=== PATIENT | female | born 1980 | race American Indian/Alaskan Native ===

== ENCOUNTER 2016-12-04 11:38 | Emergency (ER) | payer MEDICAID ==
[2016-12-04 11:59] VITALS: BP 121/71; PULSE 97; RESP 16; TEMP 97.9; O2SAT 96
--- NOTE | 2016-12-04 12:56 | C.PDOC ---
History Of Present Illness 36 yr old female presents to the ER with complaints of facial swelling for the past 2 weeks, states the swelling has been constant. Patient denies use of new products or any new foods. Patient also reports of a cough for the past 1 week, associated with mild sore throat and runny nose. Patient states the cough now causes pain to the left upper back. Also reports of heavy menstrual bleeding for the past 1 year and states her period last 3 weeks. Patient reports she feels weak and tired. Patient denies travel, fever, chills, chest pain, SOB, nausea, vomiting, diarrhea, dysuria, incontinence or numbness. Time Seen by Provider: 12/04/16 12:04 Chief Complaint (Nursing): Abnormal Skin Integrity History Per: Patient History/Exam Limitations: no limitations Onset/Duration Of Symptoms: Days Current Symptoms Are (Timing): Still Present Pain Scale Rating Of: 2 Past Medical History Reviewed: Historical Data, Nursing Documentation, Vital Signs Vital Signs: Last Vital Signs Temp 97.9 F 12/04/16 11:57 Pulse 97 H 12/04/16 11:57 Resp 16 12/04/16 11:57 BP 121/71 12/04/16 11:57 Pulse Ox 96 12/04/16 14:01 Family History: States: No Known Family Hx - Social History Hx Alcohol Use: No Hx Substance Use: No - Immunization History Hx Tetanus Toxoid Vaccination: No Hx Influenza Vaccination: No Hx Pneumococcal Vaccination: No Review Of Systems Except As Marked, All Systems Reviewed And Found Negative. Constitutional: Positive for: Other ((+) Facial swelling ). Negative for: Fever , Chills ENT: Positive for: Throat Pain (Sore throat ) Cardiovascular: Negative for: Chest Pain Respiratory: Positive for: Cough. Negative for: Shortness of Breath Gastrointestinal: Negative for: Nausea, Vomiting, Diarrhea Genitourinary: Positive for: Other (mentrual bleeding). Negative for: Dysuria, Incontinence Neurological: Negative for: Weakness, Numbness Physical Exam - Physical Exam Appears: Non-toxic, No Acute Distress, Other (Face - Mild swelling to the cheeks and bilateral eyelids. ) Skin: Warm, Dry, Pale, No Rash Head: Atraumatic, Normacephalic Eye(s): bilateral: Normal Inspection, PERRL, EOMI Ear(s): Bilateral: Normal Oral Mucosa: Moist Throat: Normal, No Erythema, No Exudate Neck: Normal, Normal ROM, Supple Lymphatic: Normal Exam, No Adenopathy Chest: Symmetrical, No Tenderness Cardiovascular: Rhythm Regular, No Friction Rub, No Murmur Respiratory: Normal Breath Sounds, No Rales, No Rhonchi, No Stridor, No Wheezing Gastrointestinal/Abdominal: Normal Exam, Soft, No Tenderness, No Guarding, No Rebound Back: Other ((+) Tenderness to the upper para thoracic region ) Extremity: Normal ROM, No Tenderness, No Swelling Pulses: Left Radial: Normal, Right Radial: Normal, Left Dorsalis Pedis: Normal, Right Dorsalis Pedis: Normal Neurological/Psych: Oriented x3, Normal Speech, Normal Motor, Normal Sensation Gait: Steady ED Course And Treatment - Laboratory Results Result Diagrams: 12/04/16 13:01 12/04/16 13:01 O2 Sat by Pulse Oximetry: 96 (on RA) Pulse Ox Interpretation: Normal - Radiology CXR: Interpreted by Me CXR Interpretation: Yes: No Acute Disease. No: Infiltrates Against Medical Advice - AMA Patient Left Against Medical Advice: The patient declines admission to the hospital and wishes to leave the Emergency Department. This action is against my medical advice. This decision was made with informed refusal. The patient was told that admission to the hospital is necessary. Explanation of the reasons why were discussed. The risks of leaving were explained to the patient and include, but are not limited to, worsening of known or currently unknown conditions, permanent disability and from undiagnosed or untreated conditions. The patient has the capacity to make this informed decision and understands my explanation of the current medical problem and risks of leaving. The patient voluntarily accepts these risks and signed an AMA form documenting our conversation. The patient was given the opportunity to ask questions and reconsider. The patient was encouraged to return to the Emergency Department at any time for further care. Medical Decision Making Medical Decision Making: PLAN: * CXR * HCG * Urinalysis * CBC * Benadryl PO * Pepcid PO * Prednisone PO Results were discussed with the patient about being severely anemic and hypokalemia. Patient refuses admission as she has no one to watch her children will return if symptoms are worsened. AMA obtained. The patient was instructed to follow up with the OBGYN for frequent vaginal bleeding. Patient states she has no active bleeding and will follow up. Disposition Counseled Patient/Family Regarding: Studies Performed, Smoking Cessation (For 7 minutes) - Disposition Referrals: [facility] [Outside] Shashi Bee MD [Medical Doctor] - Disposition: AGAINST MEDICAL ADVICE Disposition Time: 13:53 Condition: GOOD Additional Instructions: Follow up with the medical doctor within 1-2 days without fail, Return if worsened, Prescriptions: DiphenhydrAMINE [Benadryl] 25 mg PO Q4H PRN #30 cap PRN Reason: Itching / Pruritus Ferrous Sulfate [Ferosul] 325 mg PO BID #60 tablet Potassium Chloride [K-Tab ER] 20 meq PO DAILY #30 tablet.er Naproxen [Naprosyn] 500 mg PO BID #20 tab Promethazine/Codeine [Codeine/Promethazine 10 MG/5 Ml-6.25 MG/5 Ml] 5 ml PO Q8 PRN #75 ml PRN Reason: Cough Ascorbic Acid [Vitamin C] 500 mg PO BID #60 tab predniSONE [Prednisone] 20 mg PO BID #10 tab Instructions: Iron Deficiency Anemia (ED), Acute Bronchitis (ED) - Clinical Impression Clinical Impression: Anemia, Bronchitis - PA / LCPC / Resident Statement MD/DO has reviewed & agrees with the documentation as recorded. - Scribe Statement The provider has reviewed the documentation as recorded by the Scribflorence Tinajero All medical record entries made by the Scribe were at my direction and personally dictated by me. I have reviewed the chart and agree that the record accurately reflects my personal performance of the history, physical exam, medical decision making, and the department course for this patient. I have also personally directed, reviewed, and agree with the discharge instructions and disposition.
[2016-12-04 13:06] LABS: BASO % 0.6 % (0.0-2.0); EOS # 0.1 K/uL (0.0-0.7); EOS % 1.1 % (0.0-4.0); HEMATOCRIT 23.6 % (34.0-47.0); LYMPH # 1.9 K/uL (1.0-4.3); LYMPH % 28.3 % (20.0-40.0); MEAN CORPUSCULAR HEMOGLOBIN 22.8 pg (27.0-31.0); MEAN CORPUSCULAR HGB CONC 30.8 g/dL (33.0-37.0); MEAN PLATELET VOLUME 6.5 fL (7.2-11.7); MONO # 0.9 K/uL (0.0-0.8); MONO % 13.9 % (0.0-10.0); NRBC % 0.1 % (0.0-2.0); WHITE BLOOD COUNT 6.8 K/uL (4.8-10.8)
[2016-12-04 13:11] LABS: RBC URINE < 1 /hpf (0-3); URINE BACTERIA RARE (<OCC); URINE BILIRUBIN NEGATIVE (NEGATIVE); URINE BLOOD 1+ (NEGATIVE); URINE COLOR Yellow (YELLOW); URINE GLUCOSE (UA) NORMAL (Normal); URINE KETONE NEGATIVE (NEGATIVE); URINE LEUKOCYTE ESTERASE TRACE Leu/uL (Negative); URINE PROTEIN NEGATIVE (NEGATIVE); WBC URINE 4 /hpf (0-5)
[2016-12-04 13:13] LABS: CHLORIDE 100 mmol/L (98-107)
[2016-12-04 13:14] LABS: POTASSIUM 2.9 mmol/L (3.6-5.2); SODIUM 144 mmol/L (132-148)
[2016-12-04 13:16] LABS: CARBON DIOXIDE 30 mmol/L (22-30); GFR AFRICAN-AMERICAN > 60
[2016-12-04 13:17] LABS: BLOOD UREA NITROGEN 4 mg/dL (7-17); CALCIUM 7.9 mg/dl (8.6-10.4); GLUCOSE,RANDOM 85 mg/dL (65-105)
[2016-12-04] MEDS ORDERED: Potassium Chloride 20 mEq/15 ml LIQ UD PO STA ×2 (13:29→13:33)
[2016-12-04] MEDS ORDERED: Potassium Chloride 20 mEq ER Tab PO ONE (13:36)
--- NOTE | 2016-12-04 14:42 | RAD ---
PROCEDURE: CHEST RADIOGRAPH, 1 VIEW HISTORY: cough, SOB COMPARISON: None available. FINDINGS: LUNGS: No focal infiltrate or effusion. Small nodular density at the lateral aspect of the left upper to mid lung zone. Six month interval followup study may be helpful if clinically indicated. PLEURA: No pneumothorax or pleural fluid seen. CARDIOVASCULAR: Normal. OSSEOUS STRUCTURES: No significant abnormalities. VISUALIZED UPPER ABDOMEN: Normal. OTHER FINDINGS: None. IMPRESSION: No focal infiltrate or effusion. Small nodular density at the lateral aspect of the left upper to mid lung zone. Six month interval followup study may be helpful if clinically indicated.
== END 2016-12-04 14:12 | disposition left against medical advice (07) ==
LOC: C.ER 11:38
DX: J40 Bronchitis, not specified as acute or chronic (principal); D64.9 Anemia, unspecified

== ENCOUNTER 2017-04-09 16:31 | Emergency (ER) | payer MEDICAID ==
[2017-04-09 16:54] VITALS: RESP 18; BMI 27.6
--- NOTE | 2017-04-09 17:52 | C.PDOC ---
History Of Present Illness 36 y/o female presents to ED for evaluation of abscess to right buttock for the past week. Patient states that the area drained 3 days ago. Pt was seen by MANAGER ED today who instructed her to come to ED for further evaluation. Otherwise, denies any fever, abdominal pain, pain/blood with BM or any other associated symptoms at this time. No history of diabetes. Time Seen by Provider: 04/09/17 17:20 Chief Complaint (Nursing): Abnormal Skin Integrity History Per: Patient History/Exam Limitations: no limitations Onset/Duration Of Symptoms: Days (1 week) Current Symptoms Are (Timing): Still Present Location Of Injury: Right: Buttock Quality Of Symptoms: denies: Itching, Swollen, Draining Recent travel outside of the [place]: No Additional History Per: Patient Past Medical History Reviewed: Historical Data, Nursing Documentation, Vital Signs Vital Signs: Last Vital Signs Temp 98.8 F 04/09/17 18:38 Pulse 82 04/09/17 18:38 Resp 18 04/09/17 18:38 BP 117/77 04/09/17 18:38 Pulse Ox 97 04/09/17 21:57 Family History: States: Unknown Family Hx - Social History Hx Alcohol Use: No Hx Substance Use: No - Immunization History Hx Tetanus Toxoid Vaccination: No Hx Influenza Vaccination: No Hx Pneumococcal Vaccination: No Review Of Systems Except As Marked, All Systems Reviewed And Found Negative. Musculoskeletal: Negative for: Leg Pain Skin: Positive for: Other (abscess to right buttock) Neurological: Negative for: Weakness, Numbness Physical Exam - Physical Exam Appears: Non-toxic, No Acute Distress Skin: Warm, Dry, Other (1.5cm diameter and 0.5cm in depth open wound to right buttock, with mild discharge, no surrounding erythema) Head: Atraumatic, Normacephalic Eye(s): bilateral: Normal Inspection, EOMI Nose: Normal Oral Mucosa: Moist Chest: Symmetrical Respiratory: No Accessory Muscle Use Gastrointestinal/Abdominal: Soft, No Tenderness Extremity: Normal ROM, No Tenderness, No Deformity, No Swelling Neurological/Psych: Oriented x3, Normal Speech ED Course And Treatment O2 Sat by Pulse Oximetry: 97 (RA) Pulse Ox Interpretation: Normal Progress Note: Patient was given Tetanus vaccination, Percocet, and Bactrim. The abscess was irrigated copiously, packed, dressing was applied. The patient tolerated the procedure well, and there were no complications. Pt instructed to return to ED in 2-3 days for wound check. Case discussed with Dr Russ , agreed upon plan and treatment. - Incision & Drainage Of Abscess Anesthesia: Lidocaine 1% Prep Used: Sterile Water, Betadine Procedure: Drained Pus, Irrigated Cavity W/Saline, Packed W/Gauze Disposition - Disposition Disposition: HOME/ ROUTINE Disposition Time: 17:49 Condition: STABLE Additional Instructions: Return in 2-3 days for wound check or sooner if symptoms persist or worsen. 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 - Scribe Statement The provider has reviewed the documentation as recorded by the Belaibflorence Lemus All medical record entries made by the Desmond were at my direction and personally dictated by me. I have reviewed the chart and agree that the record accurately reflects my personal performance of the history, physical exam, medical decision making, and the department course for this patient. I have also personally directed, reviewed, and agree with the discharge instructions and disposition.
[2017-04-09] MEDS ORDERED: Tmp-Smz 800 mg-160 mg DS Tab PO STA (17:58)
[2017-04-09] MEDS ORDERED: Oxycodone/Acetaminophen 5/325 mg Tab PO STA (17:58)
[2017-04-09] MEDS ORDERED: Oxycodone/Acetaminophen 5/325 mg Tab ONE (18:06)
[2017-04-09] MEDS ORDERED: Tmp-Smz 800 mg-160 mg DS Tab ONE (18:09)
[2017-04-09 18:39] VITALS: BP 117/77; PULSE 82; TEMP 98.8
[2017-04-09 21:49] VITALS: O2SAT 97
== END 2017-04-09 18:44 | disposition home or self-care (01) ==
LOC: C.ER 16:31
DX: S31.819D Unspecified open wound of right buttock, subsequent encounter (principal); L03.317 Cellulitis of buttock; X58.XXXD Exposure to other specified factors, subsequent encounter; L02.31 Cutaneous abscess of buttock

== ENCOUNTER 2017-08-07 18:58 | Inpatient (IN) | payer MEDICAID ==
[2017-08-07] MEDS ORDERED: Albuterol 0.083% Inhal Sol (2.5 mg/3 mL) UD IH STA (20:16)
--- NOTE | 2017-08-07 20:21 | C.PDOC ---
History Of Present Illness 36 year old female presents to the ER with a complaint ofa productive cough and chest pain intermittently for the past 3 weeks. Patient states she has been using her boyfriend's nebulizer with improvement. Denies fever. Chief Complaint (Nursing): Chest Pain History Per: Patient History/Exam Limitations: no limitations Onset/Duration Of Symptoms: Days Current Symptoms Are (Timing): Still Present Modifying Factors: None Exacerbating Factors: None Alleviating Factors: Other (Nebulizer) Recent travel outside of the [place]: No Past Medical History Reviewed: Historical Data, Nursing Documentation, Vital Signs Vital Signs: Last Vital Signs Temp 98.1 F 08/07/17 22:21 Pulse 80 08/07/17 22:21 Resp 18 08/07/17 22:21 BP 105/68 08/07/17 22:21 Pulse Ox 96 08/08/17 01:28 - Medical History PMH: No Chronic Diseases Surgical History: No Surg Hx Family History: States: Unknown Family Hx - Social History Hx Alcohol Use: Yes Hx Substance Use: Yes (DAILY) - Immunization History Hx Tetanus Toxoid Vaccination: No Hx Influenza Vaccination: No Hx Pneumococcal Vaccination: No Review Of Systems Constitutional: Negative for: Fever, Chills Cardiovascular: Positive for: Chest Pain Respiratory: Positive for: Cough Gastrointestinal: Negative for: Nausea, Vomiting Physical Exam - Physical Exam Appears: Non-toxic, No Acute Distress Skin: Normal Color, Warm, Dry Head: Atraumatic, Normacephalic Eye(s): bilateral: Normal Inspection Oral Mucosa: Moist Chest: Symmetrical Cardiovascular: Rhythm Regular Respiratory: No Accessory Muscle Use, No Rales, Rhonchi (Occasional), Wheezing ( Occasional) Gastrointestinal/Abdominal: Soft, No Tenderness Extremity: No Pedal Edema Neurological/Psych: Oriented x3, Normal Speech, Other (No focal deficits) ED Course And Treatment - Laboratory Results Result Diagrams: 08/07/17 20:34 08/07/17 20:34 ECG: Interpreted By Me, Viewed By Me ECG Rhythm: Sinus Rhythm, ST/T Changes ECG Interpretation: No Acute Changes, Abnormal Interpretation Of ECG: NSR, T wave abnormality, abnormal tracings Rate From EC O2 Sat by Pulse Oximetry: 96 (Room air) Pulse Ox Interpretation: Normal Progress Note: EKG, blood work, CXR, and urinalysis ordered. Nebulizer treatment administered. Disposition Discussed With : Aga Lemus Doctor Will See Patient In The: Hospital Counseled Patient/Family Regarding: Diagnosis - Disposition Disposition: HOSPITALIZED Disposition Time: 01:29 Condition: STABLE Forms: [facility] (Uzbek) - POA Present On Arrival: None - Clinical Impression Clinical Impression: Chest pain, Pericardial effusion with cardiac tamponade - Scribe Statement The provider has reviewed the documentation as recorded by the Scribe Phill Matos All medical record entries made by the Belaibflorence were at my direction and personally dictated by me. I have reviewed the chart and agree that the record accurately reflects my personal performance of the history, physical exam, medical decision making, and the department course for this patient. I have also personally directed, reviewed, and agree with the discharge instructions and disposition.
[2017-08-07] MEDS ORDERED: Albuterol 0.042% Inhal Sol (1.25 mg/3 mL) UD ONE (20:22)
[2017-08-07 20:42] LABS: BASO # 0.1 K/uL (0.0-0.2); BASO % 1.3 % (0.0-2.0); EOS # 0.2 K/uL (0.0-0.7); EOS % 2.4 % (0.0-4.0); HEMATOCRIT 34.4 % (34.0-47.0); LYMPH # 1.9 K/uL (1.0-4.3); LYMPH % 28.7 % (20.0-40.0); MEAN CELL VOLUME 81.8 fL (81.0-99.0); MEAN CORPUSCULAR HEMOGLOBIN 25.5 pg (27.0-31.0); MEAN CORPUSCULAR HGB CONC 31.2 g/dL (33.0-37.0); MEAN PLATELET VOLUME 7.2 fL (7.2-11.7); MONO # 0.7 K/uL (0.0-0.8); MONO % 10.4 % (0.0-10.0); NRBC % 0.1 % (0.0-2.0); RED CELL DISTRIBUTION WIDTH 19.4 % (11.5-14.5); WHITE BLOOD COUNT 6.6 K/uL (4.8-10.8)
[2017-08-07 21:09] LABS: ALB/GLOB RATIO 0.8 (1.0-2.1); ALKALINE PHOSPHATASE 125 U/L (38-126); ALT/SGPT 60 U/L (9-52); AST/SGOT 79 U/L (14-36); BILIRUBIN,TOTAL 0.4 mg/dL (0.2-1.3); BLOOD UREA NITROGEN 3 mg/dL (7-17); CALCIUM 7.8 mg/dl (8.6-10.4); CARBON DIOXIDE 25 mmol/L (22-30); CHLORIDE 103 mmol/L (98-107); GFR AFRICAN-AMERICAN > 60; GLUCOSE,RANDOM 76 mg/dL (65-105); SODIUM 138 mmol/L (132-148)
[2017-08-08] MEDS ORDERED: Iodixanol 320 MG/ML 100 ML BOTTLE IV ONE (00:17)
[2017-08-08] MEDS ORDERED: Potassium Chloride 20 mEq/15 ml LIQ UD PO STA (00:53)
[2017-08-08] MEDS ORDERED: Potassium Chloride 20 mEq ER Tab PO ONE (00:56)
--- NOTE | 2017-08-08 01:04 | CT ---
EXAM: CT Angiography Chest With Intravenous Contrast CLINICAL HISTORY: 36 years old, female; Pain; Chest pain; Additional info: Chest pain, elevated d-dimer TECHNIQUE: Axial computed tomographic angiography images of the chest with intravenous contrast using pulmonary embolism protocol. All CT scans at this facility use one or more dose reduction techniques, viz.: automated exposure control; ma/kV adjustment per patient size (including targeted exams where dose is matched to indication; i.e. head); or iterative reconstruction technique. MIP reconstructed images were created and reviewed. Coronal and sagittal reformatted images were created and reviewed. CONTRAST: 100 mL of [id number] administered intravenously. COMPARISON: No relevant prior studies available. FINDINGS: Pulmonary arteries: No pulmonary embolism. Aorta: No thoracic aortic aneurysm. Lungs: No mass. No consolidation. Pleural spaces: No significant effusion. No pneumothorax. Heart: No cardiomegaly. Significant pericardial effusion. No evidence of right heart dysfunction. Bones: No acute fracture. Lymph nodes: No pathologically enlarged lymph nodes. IMPRESSION: No pulmonary embolism. Significant pericardial effusion. The lungs are clear.
--- NOTE | 2017-08-08 08:34 | RAD ---
HISTORY: /chest pain / cough/ wheezes COMPARISON: No prior. TECHNIQUE: Chest PA and lateral FINDINGS: LUNGS: No active pulmonary disease. PLEURA: No significant pleural effusion identified. No pneumothorax apparent. CARDIOVASCULAR: Stable cardiomegaly. No pulmonary vascular derangement appreciated. OSSEOUS STRUCTURES: No significant abnormalities. VISUALIZED UPPER ABDOMEN: Normal. OTHER FINDINGS: None. IMPRESSION: Cardiomegaly. No interval acute pulmonary disease appreciable.
[2017-08-08] MEDS: Enoxaparin 30 mg Syringe SC SCH (09:17)
[2017-08-08] MEDS: cefTRIAXone IV 1 gm in Dextros 50 ML IVPB SCH (09:17)
--- NOTE | 2017-08-08 19:04 | CP.PCM.HP ---
History of Present Illness - History of Present Illness History of Present Illness: 36-year-old female with no past history presents to the ER for evaluation of chest pain & cough. C/O - chest pain for the last 15 days. Insidious in onset, progressive, substernal, pinpricking sensation, intensity of 5/10, near continuous throughout the day, not associated with movement. C/O - cough for the last 15 days. Productive, of whitish expectoration, associated and aggravates the chest pain. No C/O - fever, chills, palpitation, hemoptysis. Present on Admission - Present on Admission Any Indicators Present on Admission: No Past Patient History - Past Medical History & Family History Past Medical History?: Yes - Past Social History Smoking Status: Current Some Days Smoker - CARDIAC Hx Cardiac Disorders: No - PULMONARY Other/Comment: PH NODES IN MY LUNGS - NEUROLOGICAL Hx Neurological Disorder: No - HEENT Hx HEENT Problems: No - RENAL Hx Chronic Kidney Disease: No - ENDOCRINE/METABOLIC Hx Endocrine Disorders: No - HEMATOLOGICAL/ONCOLOGICAL Hx Blood Disorders: No - INTEGUMENTARY Other/Comment: inner thighs it. chiness and discoloration - MUSCULOSKELETAL/RHEUMATOLOGICAL Hx Musculoskeletal Disorders: No Hx Falls: No - GASTROINTESTINAL Hx Gastrointestinal Disorders: No - GENITOURINARY/GYNECOLOGICAL Hx Genitourinary Disorders: No - PSYCHIATRIC Hx Substance Use: Yes (1 bag of marijuana /day) - SURGICAL HISTORY Hx Surgeries: Yes Hx Section: Yes (2014 1x) - ANESTHESIA Hx Anesthesia: Yes Hx Anesthesia Reactions: No Hx Malignant Hyperthermia: No Has any member of the family had a problem w/ anesthesia?: No Meds Allergies/Adverse Reactions: Allergies Allergy/AdvReac Type Severity Reaction Status Date / Time No Known Allergies Allergy Verified 08/07/17 19:14 Physical Exam - Constitutional Appears: Well - Head Exam Head Exam: ATRAUMATIC, NORMAL INSPECTION, NORMOCEPHALIC - Eye Exam Eye Exam: EOMI, Normal appearance, PERRL Pupil Exam: NORMAL ACCOMODATION, PERRL - ENT Exam ENT Exam: Mucous Membranes Moist, Normal Exam - Neck Exam Neck exam: Positive for: Normal Inspection - Respiratory Exam Respiratory Exam: Decreased Breath Sounds - Cardiovascular Exam Cardiovascular Exam: REGULAR RHYTHM, +S1, +S2 - GI/Abdominal Exam GI & Abdominal Exam: Diminished Bowel Sounds, Soft - Rectal Exam Rectal Exam: Deferred Results - Vital Signs Recent Vital Signs: Last Vital Signs Temp 97.8 F 08/08/17 15:25 Pulse 78 08/08/17 15:25 Resp 20 08/08/17 15:25 BP 130/87 08/08/17 15:25 Pulse Ox 98 08/08/17 15:25 - Labs Result Diagrams: 08/12/17 09:28 08/12/17 09:28 Labs: Laboratory Results - last 24 hr 08/07/17 08/07/17 08/07/17 20:34 20:34 20:34 WBC 6.6 RBC 4.21 Hgb 10.7 L D Hct 34.4 MCV 81.8 D MCH 25.5 L MCHC 31.2 L RDW 19.4 H Plt Count 303 MPV 7.2 Neut % (Auto) 57.2 Lymph % (Auto) 28.7 Harris % (Auto) 10.4 H Eos % (Auto) 2.4 Baso % (Auto) 1.3 Neut # 3.8 Lymph # 1.9 Harris # 0.7 Eos # 0.2 Baso # 0.1 ESR D-Dimer, Quantitative 644 H Sodium 138 Potassium 3.0 L Chloride 103 Carbon Dioxide 25 Anion Gap 13 BUN 3 L Creatinine 0.5 L Est GFR ( Amer) > 60 Est GFR (Non-Af Amer) > 60 Random Glucose 76 Calcium 7.8 L Total Bilirubin 0.4 AST 79 H ALT 60 H Alkaline Phosphatase 125 Troponin I < 0.0120 Total Protein 8.0 Albumin 3.6 Globulin 4.4 H Albumin/Globulin Ratio 0.8 L TSH 3rd Generation Urine HCG, Qual 08/07/17 08/08/17 08/08/17 20:55 02:31 02:31 WBC RBC Hgb Hct MCV MCH MCHC RDW Plt Count MPV Neut % (Auto) Lymph % (Auto) Harris % (Auto) Eos % (Auto) Baso % (Auto) Neut # Lymph # Harris # Eos # Baso # ESR 7 D-Dimer, Quantitative Sodium Potassium Chloride Carbon Dioxide Anion Gap BUN Creatinine Est GFR ( Amer) Est GFR (Non-Af Amer) Random Glucose Calcium Total Bilirubin AST ALT Alkaline Phosphatase Troponin I Total Protein Albumin Globulin Albumin/Globulin Ratio TSH 3rd Generation 2.10 Urine HCG, Qual Negative
--- NOTE | 2017-08-08 20:33 | CP.PCM.CON ---
History of Present Illness - History of Present Illness History of Present Illness: 36 F with no significant PMH admitted for cough, and chest pains Chest pain not related to exertion CT chest revealed large pericardial effusion ECHO: Large pericardial effusion No RV collapse No hemodynamic compromise Needs pericardial window and fluid analysis Thoracic surgery consult requested Physical Examination - Constitutional Appears: No Acute Distress - Head Exam Head Exam: ATRAUMATIC, NORMOCEPHALIC - Eye Exam Eye Exam: EOMI, Normal appearance - ENT Exam ENT Exam: Mucous Membranes Moist - Respiratory Exam Respiratory Exam: NORMAL BREATHING PATTERN - Cardiovascular Exam Cardiovascular Exam: REGULAR RHYTHM, Rubs - GI/Abdominal Exam GI & Abdominal Exam: Soft. absent: Tenderness - Neurological Exam Neurological Exam: Alert, Awake, Oriented x3 - Psychiatric Exam Psychiatric exam: Normal Affect, Normal Mood - Skin Skin Exam: Dry, Intact, Normal Color, Warm Past Patient History - Past Medical History & Family History Past Medical History?: Yes - Past Social History Smoking Status: Current Some Days Smoker - CARDIAC Hx Cardiac Disorders: No - PULMONARY Other/Comment: PH NODES IN MY LUNGS - NEUROLOGICAL Hx Neurological Disorder: No - HEENT Hx HEENT Problems: No - RENAL Hx Chronic Kidney Disease: No - ENDOCRINE/METABOLIC Hx Endocrine Disorders: No - HEMATOLOGICAL/ONCOLOGICAL Hx Blood Disorders: No - INTEGUMENTARY Other/Comment: inner thighs it. chiness and discoloration - MUSCULOSKELETAL/RHEUMATOLOGICAL Hx Musculoskeletal Disorders: No Hx Falls: No - GASTROINTESTINAL Hx Gastrointestinal Disorders: No - GENITOURINARY/GYNECOLOGICAL Hx Genitourinary Disorders: No - PSYCHIATRIC Hx Substance Use: Yes (1 bag of marijuana /day) - SURGICAL HISTORY Hx Surgeries: Yes Hx Section: Yes (2014 1x) - ANESTHESIA Hx Anesthesia: Yes Hx Anesthesia Reactions: No Hx Malignant Hyperthermia: No Has any member of the family had a problem w/ anesthesia?: No Meds Allergies/Adverse Reactions: Allergies Allergy/AdvReac Type Severity Reaction Status Date / Time No Known Allergies Allergy Verified 08/07/17 19:14 - Medications Medications: Current Medications Diphenhydramine HCl (Benadryl) 25 mg PO Q8 PRN PRN Reason: Rash Enoxaparin Sodium (Lovenox) 30 mg SC DAILY [facility] Last Admin: 08/08/17 09:17 Dose: 30 mg Ceftriaxone Sodium (Rocephin Iv 1 Gm Duplex) 50 mls @ 100 mls/hr IVPB DAILY [facility] Last Admin: 08/08/17 09:17 Dose: 100 mls/hr Potassium Chloride (Potassium Chloride 20 Meq/100 Ml) 20 meq in 100 mls @ 50 mls/hr IVPB Q2 [facility] Stop: 08/09/17 03:59 Indomethacin (Indocin) 25 mg PO TID [facility] Last Admin: 08/08/17 17:42 Dose: 25 mg Results - Vital Signs Recent Vital Signs: Last Vital Signs Temp 97.8 F 08/08/17 15:25 Pulse 73 08/08/17 16:00 Resp 20 08/08/17 15:25 BP 130/87 08/08/17 15:25 Pulse Ox 98 08/08/17 15:25 - Labs Result Diagrams: 08/16/17 06:37 08/16/17 06:34 Labs: Laboratory Results - last 24 hr 08/07/17 08/07/17 08/07/17 20:34 20:34 20:34 WBC 6.6 RBC 4.21 Hgb 10.7 L D Hct 34.4 MCV 81.8 D MCH 25.5 L MCHC 31.2 L RDW 19.4 H Plt Count 303 MPV 7.2 Neut % (Auto) 57.2 Lymph % (Auto) 28.7 [place] % (Auto) 10.4 H Eos % (Auto) 2.4 Baso % (Auto) 1.3 Neut # 3.8 Lymph # 1.9 [place] # 0.7 Eos # 0.2 Baso # 0.1 ESR D-Dimer, Quantitative 644 H Sodium 138 Potassium 3.0 L Chloride 103 Carbon Dioxide 25 Anion Gap 13 BUN 3 L Creatinine 0.5 L Est GFR ( Amer) > 60 Est GFR (Non-Af Amer) > 60 Random Glucose 76 Calcium 7.8 L Total Bilirubin 0.4 AST 79 H ALT 60 H Alkaline Phosphatase 125 Troponin I < 0.0120 Total Protein 8.0 Albumin 3.6 Globulin 4.4 H Albumin/Globulin Ratio 0.8 L TSH 3rd Generation Urine HCG, Qual 08/07/17 08/08/17 08/08/17 20:55 02:31 02:31 WBC RBC Hgb Hct MCV MCH MCHC RDW Plt Count MPV Neut % (Auto) Lymph % (Auto) [place] % (Auto) Eos % (Auto) Baso % (Auto) Neut # Lymph # [place] # Eos # Baso # ESR 7 D-Dimer, Quantitative Sodium Potassium Chloride Carbon Dioxide Anion Gap BUN Creatinine Est GFR ( Amer) Est GFR (Non-Af Amer) Random Glucose Calcium Total Bilirubin AST ALT Alkaline Phosphatase Troponin I Total Protein Albumin Globulin Albumin/Globulin Ratio TSH 3rd Generation 2.10 Urine HCG, Qual Negative Assessment & Plan - Assessment and Plan (Free Text) Assessment: 36 F with no significant PMH admitted for cough, and chest pains Chest pain not related to exertion CT chest revealed large pericardial effusion ECHO: Large pericardial effusion No RV collapse No hemodynamic compromise Needs pericardial window and fluid analysis Thoracic surgery consult requested
--- NOTE | 2017-08-08 21:20 | CP.PCM.CON ---
History of Present Illness - History of Present Illness History of Present Illness: Thoracic Surgery- Dr. Bowers 36F no relevant pmhx presents to [facility] w/ cough, chest pain described as achy, and shortness of breath when walking up a hill that started 3 weeks ago. Pain is worse when laying flat or prone, slightly better when taking her boyfriends nebulizer. Times at night, pain will awaken from sleep. Pt never had pain like this in the past. Currently denies: fevers, chills, nausea, vomiting, diarrhea, numbness/tingling in extremities. PMH: denies PSH: ALL: NKDA SocialHx: 10 cigarettes/day, occasional marijuana use. denies etoh or other recreational drug use Review of Systems - Review of Systems All systems: reviewed and no additional remarkable complaints except - Constitutional Constitutional: As Per HPI Past Patient History - Past Medical History & Family History Past Medical History?: Yes - Past Social History Smoking Status: Current Some Days Smoker - CARDIAC Hx Cardiac Disorders: No - PULMONARY Other/Comment: PH NODES IN MY LUNGS - NEUROLOGICAL Hx Neurological Disorder: No - HEENT Hx HEENT Problems: No - RENAL Hx Chronic Kidney Disease: No - ENDOCRINE/METABOLIC Hx Endocrine Disorders: No - HEMATOLOGICAL/ONCOLOGICAL Hx Blood Disorders: No - INTEGUMENTARY Other/Comment: inner thighs it. chiness and discoloration - MUSCULOSKELETAL/RHEUMATOLOGICAL Hx Musculoskeletal Disorders: No Hx Falls: No - GASTROINTESTINAL Hx Gastrointestinal Disorders: No - GENITOURINARY/GYNECOLOGICAL Hx Genitourinary Disorders: No - PSYCHIATRIC Hx Substance Use: Yes (1 bag of marijuana /day) - SURGICAL HISTORY Hx Surgeries: Yes Hx Section: Yes (2014 1x) - ANESTHESIA Hx Anesthesia: Yes Hx Anesthesia Reactions: No Hx Malignant Hyperthermia: No Has any member of the family had a problem w/ anesthesia?: No Meds Allergies/Adverse Reactions: Allergies Allergy/AdvReac Type Severity Reaction Status Date / Time No Known Allergies Allergy Verified 08/07/17 19:14 - Medications Medications: Current Medications Diphenhydramine HCl (Benadryl) 25 mg PO Q8 PRN PRN Reason: Rash Enoxaparin Sodium (Lovenox) 30 mg SC DAILY [facility] Last Admin: 08/08/17 09:17 Dose: 30 mg Ceftriaxone Sodium (Rocephin Iv 1 Gm Duplex) 50 mls @ 100 mls/hr IVPB DAILY [facility] Last Admin: 08/08/17 09:17 Dose: 100 mls/hr Potassium Chloride (Potassium Chloride 20 Meq/100 Ml) 20 meq in 100 mls @ 50 mls/hr IVPB Q2 RYAN Stop: 08/09/17 03:59 Indomethacin (Indocin) 25 mg PO TID [facility] Last Admin: 08/08/17 17:42 Dose: 25 mg Physical Exam - Constitutional Appears: Non-toxic, No Acute Distress - Head Exam Head Exam: ATRAUMATIC - Eye Exam Eye Exam: EOMI. absent: Scleral icterus - ENT Exam ENT Exam: Mucous Membranes Moist - Respiratory Exam Respiratory Exam: NORMAL BREATHING PATTERN. absent: Accessory Muscle Use, Respiratory Distress - Cardiovascular Exam Cardiovascular Exam: Rubs, +S1, +S2. absent: Tachycardia - GI/Abdominal Exam GI & Abdominal Exam: Soft. absent: Distended, Firm, Guarding, Rigid, Tenderness - Extremities Exam Extremities exam: Positive for: normal inspection. Negative for: calf tenderness - Back Exam Back exam: absent: CVA tenderness (L), CVA tenderness (R) - Neurological Exam Neurological exam: Alert, Oriented x3 - Psychiatric Exam Psychiatric exam: Normal Affect - Skin Skin Exam: Intact, Warm Results - Vital Signs Recent Vital Signs: Last Vital Signs Temp 97.8 F 08/08/17 15:25 Pulse 73 08/08/17 16:00 Resp 20 08/08/17 15:25 BP 130/87 08/08/17 15:25 Pulse Ox 98 08/08/17 15:25 - Labs Result Diagrams: 08/07/17 20:34 08/07/17 20:34 Labs: Laboratory Results - last 24 hr 08/07/17 08/07/17 08/08/17 20:34 20:55 02:31 ESR 7 Anion Gap 13 Troponin I < 0.0120 TSH 3rd Generation Urine HCG, Qual Negative 08/08/17 02:31 ESR Anion Gap Troponin I TSH 3rd Generation 2.10 Urine HCG, Qual Assessment & Plan - Assessment and Plan (Free Text) Assessment: 36F w/ pericardial effusion Plan: - plan for pericardial window - will re asses in AM - NPO @ MN - type and cross - IVF - breathing tx PRN - further recs per Dr. Bowers Surgical attending Sukhjinder Thomas PGY1
[2017-08-09] MEDS: Lactated Ringer's 1,000 ML IV SCH (06:09)
[2017-08-09 06:53] LABS: INR 1.1
--- NOTE | 2017-08-09 08:57 | CP.PCM.PN ---
Subjective - Date & Time of Evaluation Date of Evaluation: 08/09/17 Time of Evaluation: 11:39 - Subjective Subjective: Cardiothoracic surgery Note for Dr. Bowers Patient seen and examined at bedside. No acute event overnight. Patient states she has mild discomfort under ribs bilaterally. ECHO shows large pericardial effusion with normal EF. Patient will need drainage tomorrow. No other complaints at this time. Objective - Vital Signs/Intake and Output Vital Signs (last 24 hours): Temp Pulse Resp BP Pulse Ox 98.1 F 82 18 129/84 100 08/09/17 08:05 08/09/17 08:05 08/09/17 08:05 08/09/17 08:05 08/09/17 08:05 Intake and Output: 08/09/17 08/09/17 06:59 18:59 Intake Total 240 300 Balance 240 300 - Medications Medications: Current Medications Diphenhydramine HCl (Benadryl) 25 mg PO Q8 PRN PRN Reason: Rash Last Admin: 08/08/17 21:20 Dose: 25 mg Enoxaparin Sodium (Lovenox) 30 mg SC DAILY [facility] Last Admin: 08/08/17 09:17 Dose: 30 mg Ceftriaxone Sodium (Rocephin Iv 1 Gm Duplex) 50 mls @ 100 mls/hr IVPB DAILY [facility] Last Admin: 08/08/17 09:17 Dose: 100 mls/hr Lactated Ringer's (Lactated Ringer's) 1,000 mls @ 45 mls/hr IV .[id number] [facility] Last Admin: 08/09/17 06:09 Dose: 45 mls/hr Indomethacin (Indocin) 25 mg PO TID [facility] Last Admin: 08/08/17 17:42 Dose: 25 mg - Labs Labs: 08/07/17 20:34 08/07/17 20:34 PT 12.6 SECONDS (9.7-12.2) H 08/09/17 06:35 INR 1.1 08/09/17 06:35 APTT 35 SECONDS (21-34) H 08/09/17 06:35 - Constitutional Appears: No Acute Distress - Head Exam Head Exam: ATRAUMATIC, NORMOCEPHALIC - Eye Exam Eye Exam: EOMI, Normal appearance - ENT Exam ENT Exam: Mucous Membranes Moist - Respiratory Exam Respiratory Exam: NORMAL BREATHING PATTERN - Cardiovascular Exam Cardiovascular Exam: REGULAR RHYTHM, Rubs - GI/Abdominal Exam GI & Abdominal Exam: Soft. absent: Tenderness - Neurological Exam Neurological Exam: Alert, Awake, Oriented x3 - Psychiatric Exam Psychiatric exam: Normal Affect, Normal Mood - Skin Skin Exam: Dry, Intact, Normal Color, Warm Assessment and Plan - Assessment and Plan (Free Text) Plan: 36F w/ pericardial effusion - plan for pericardial window in OR tomorrow at 10 am - NPO past MN - type and cross 2 unit PRBC - Routine pre-op work up - further recs per Dr. Elissa Crespo PGY1
[2017-08-09] MEDS: Enoxaparin 30 mg Syringe SC SCH (10:00)
--- NOTE | 2017-08-09 10:01 | CARD ---
APPROVED REPORT EXAM: Two-dimensional and M-mode echocardiogram with Doppler and color Doppler. Other Information Quality : GoodRhythm : NSR INDICATION Pericardial Effusion Chest Pain 2D DIMENSIONS IVSd0.9 (0.7-1.1cm)LVDd3.8 (3.9-5.9cm) PWd0.9 (0.7-1.1cm)LVDs2.1 (2.5-4.0cm) FS (%) 45.2 %LVEF (%)77.3 (>50%) M-Mode DIMENSIONS RVDd2.21 (2.1-3.2cm)Left Atrium (MM)3.60 (2.5-4.0cm) IVSd0.85 (0.7-1.1cm)Aortic Root2.56 (2.2-3.7cm) LVDd4.39 (4.0-5.6cm)Aortic Cusp Exc.1.89 (1.5-2.0cm) PWd0.96 (0.7-1.1cm)FS (%) 49 % LVDs2.25 (2.0-3.8cm)LVEF (%)80 (>50%) Mitral Valve MV E Cqaoihzt03.8cm/sMV A Ykwevwmc16.8cm/sE/A ratio1.1 TDI E/Lateral E'0.0E/Medial E'0.0 Tricuspid Valve TR Peak [id number]/sTR Peak [id number] LEFT VENTRICLE The left ventricle is normal size. There is normal left ventricular wall thickness. The left ventricular function is normal. The left ventricular ejection fraction is within the normal range. There is normal LV segmental wall motion. Transmitral Doppler flow pattern is abnormal. RIGHT VENTRICLE The right ventricle is normal size. ATRIA The left atrium size is normal. The right atrium size is normal. AORTIC VALVE The aortic valve is normal in structure. MITRAL VALVE The mitral valve is normal in structure. TRICUSPID VALVE There is trace to mild tricuspid regurgitation. PERICARDIAL EFFUSION Large paricardial effusion. <Conclusion> Normal LV systolic function. Diastolic dysfunction. Normal chamber size. Trace to mild TR. Very large Pericardial effusion. resident manager notified.
--- NOTE | 2017-08-09 10:37 | CARD ---
APPROVED REPORT EKG Measurement Heart [id number] <Conclusion> Normal sinus rhythm
[2017-08-09] MEDS: cefTRIAXone IV 1 gm in Dextros 50 ML IVPB SCH (11:00)
--- NOTE | 2017-08-09 13:25 | CP.PCM.CON ---
History of Present Illness - History of Present Illness History of Present Illness: Reason for consultation: Large pericaridial effusuion. Requested by : Dr Burk. Pt s/e. Imaging studies reviewed as well as labs and progress notes. 36 yo female was evaluated in the ER for sob, where ct of chest: large pericardial effusion. ECHO-normally functioning heart other than large pericardial effusion. For subxyphoid pericardial window in am tomorrow. Risks, benefits, and alternatives discussed with the pt who accepted surgery. a/p: Large pericardial effusion. Subxyphoid pericaridal window. d/w Dr. Francisco. Past Patient History - Past Medical History & Family History Past Medical History?: Yes - Past Social History Smoking Status: Current Some Days Smoker - CARDIAC Hx Cardiac Disorders: No - PULMONARY Other/Comment: PH NODES IN MY LUNGS - NEUROLOGICAL Hx Neurological Disorder: No - HEENT Hx HEENT Problems: No - RENAL Hx Chronic Kidney Disease: No - ENDOCRINE/METABOLIC Hx Endocrine Disorders: No - HEMATOLOGICAL/ONCOLOGICAL Hx Blood Disorders: No - INTEGUMENTARY Other/Comment: inner thighs it. chiness and discoloration - MUSCULOSKELETAL/RHEUMATOLOGICAL Hx Musculoskeletal Disorders: No Hx Falls: No - GASTROINTESTINAL Hx Gastrointestinal Disorders: No - GENITOURINARY/GYNECOLOGICAL Hx Genitourinary Disorders: No - PSYCHIATRIC Hx Substance Use: Yes (1 bag of marijuana /day) - SURGICAL HISTORY Hx Surgeries: Yes Hx Section: Yes (2014 1x) - ANESTHESIA Hx Anesthesia: Yes Hx Anesthesia Reactions: No Hx Malignant Hyperthermia: No Has any member of the family had a problem w/ anesthesia?: No Meds Allergies/Adverse Reactions: Allergies Allergy/AdvReac Type Severity Reaction Status Date / Time No Known Allergies Allergy Verified 08/07/17 19:14 - Medications Medications: Current Medications Diphenhydramine HCl (Benadryl) 25 mg PO Q8 PRN PRN Reason: Rash Last Admin: 08/08/17 21:20 Dose: 25 mg Enoxaparin Sodium (Lovenox) 30 mg SC DAILY [facility] Last Admin: 08/09/17 10:00 Dose: Not Given Ceftriaxone Sodium (Rocephin Iv 1 Gm Duplex) 50 mls @ 100 mls/hr IVPB DAILY [facility] Last Admin: 08/09/17 11:00 Dose: 100 mls/hr Lactated Ringer's (Lactated Ringer's) 1,000 mls @ 45 mls/hr IV .[id number] [facility] Last Admin: 08/09/17 06:09 Dose: 45 mls/hr Indomethacin (Indocin) 25 mg PO TID [facility] Last Admin: 08/09/17 11:00 Dose: 25 mg Nicotine (Nicoderm Cq) 1 patch TD DAILY [facility] Last Admin: 08/09/17 12:55 Dose: 1 patch Results - Vital Signs Recent Vital Signs: Last Vital Signs Temp 98.1 F 08/09/17 08:05 Pulse 82 08/09/17 08:05 Resp 18 08/09/17 08:05 BP 129/84 08/09/17 08:05 Pulse Ox 100 08/09/17 08:05 - Labs Result Diagrams: 08/07/17 20:34 08/07/17 20:34 Labs: Laboratory Results - last 24 hr 08/08/17 08/09/17 08/09/17 02:31 06:35 06:35 PT 12.6 H INR 1.1 APTT 35 H C-Reactive Prot, Quant 18.3 H Blood Type O POSITIVE Antibody Screen Negative
--- NOTE | 2017-08-09 18:54 | CP.PCM.PN ---
Subjective - Date & Time of Evaluation Date of Evaluation: 08/09/17 Time of Evaluation: 11:20 - Subjective Subjective: clinically same Objective - Vital Signs/Intake and Output Vital Signs (last 24 hours): Temp Pulse Resp BP Pulse Ox 97.7 F 73 20 99/63 L 99 08/09/17 15:30 08/09/17 15:30 08/09/17 15:30 08/09/17 15:30 08/09/17 15:30 Intake and Output: 08/09/17 08/09/17 06:59 18:59 Intake Total 240 600 Balance 240 600 - Medications Medications: Current Medications Diphenhydramine HCl (Benadryl) 25 mg PO Q8 PRN PRN Reason: Rash Last Admin: 08/08/17 21:20 Dose: 25 mg Enoxaparin Sodium (Lovenox) 30 mg SC DAILY [facility] Last Admin: 08/09/17 10:00 Dose: Not Given Ceftriaxone Sodium (Rocephin Iv 1 Gm Duplex) 50 mls @ 100 mls/hr IVPB DAILY [facility] Last Admin: 08/09/17 11:00 Dose: 100 mls/hr Lactated Ringer's (Lactated Ringer's) 1,000 mls @ 45 mls/hr IV .[id number] [facility] Last Admin: 08/09/17 06:09 Dose: 45 mls/hr Indomethacin (Indocin) 25 mg PO TID [facility] Last Admin: 08/09/17 17:10 Dose: 25 mg Nicotine (Nicoderm Cq) 1 patch TD DAILY [facility] Last Admin: 08/09/17 12:55 Dose: 1 patch - Labs Labs: 08/07/17 20:34 08/07/17 20:34 PT 12.6 SECONDS (9.7-12.2) H 08/09/17 06:35 INR 1.1 08/09/17 06:35 APTT 35 SECONDS (21-34) H 08/09/17 06:35 - Constitutional Appears: Well - Head Exam Head Exam: ATRAUMATIC, NORMAL INSPECTION, NORMOCEPHALIC - Eye Exam Eye Exam: EOMI, Normal appearance, PERRL Pupil Exam: NORMAL ACCOMODATION, PERRL - ENT Exam ENT Exam: Mucous Membranes Moist, Normal Exam - Neck Exam Neck Exam: Full ROM, Normal Inspection. absent: Lymphadenopathy - Respiratory Exam Respiratory Exam: Decreased Breath Sounds - Cardiovascular Exam Cardiovascular Exam: REGULAR RHYTHM, +S1, +S2 - GI/Abdominal Exam GI & Abdominal Exam: Soft, Diminished Bowel Sounds - Rectal Exam Rectal Exam: Deferred Assessment and Plan (1) Chest pain Status: Acute (2) Pericardial effusion with cardiac tamponade Status: Acute (3) Abscess Status: Acute (4) Anemia Status: Acute (5) Bronchitis Status: Acute (6) Open wound Status: Acute - Assessment and Plan (Free Text) Plan: Patient examined. Mild chest pain present. EKG normal. Chest x-ray suggestive of cardiomegaly. CT scan chest suggestive of pericardial effusion. 2D echo Suggestive of very large pericardial effusion. Patient will need diagnostic/therapeutic pericardiocentesis. Continue ceftriaxone. Continue diphenhydramine and indomethacin. Continue supportive care.
[2017-08-09] MEDS ORDERED: Lactated Ringer's 1,000 ML IV SCH (23:30)
[2017-08-10] MEDS: Potassium Chloride 10 mEq ER Tab PO SCH ×2 (04:48→08:50)
[2017-08-10] MEDS: Lactated Ringer's 1,000 ML IV SCH ×2 (04:49→22:01)
[2017-08-10 07:06] LABS: ALB/GLOB RATIO 0.8 (1.0-2.1); ALKALINE PHOSPHATASE 126 U/L (38-126); ALT/SGPT 57 U/L (9-52); AST/SGOT 65 U/L (14-36); BILIRUBIN,TOTAL 0.7 mg/dL (0.2-1.3); CALCIUM 8.6 mg/dl (8.6-10.4); CARBON DIOXIDE 26 mmol/L (22-30); CHLORIDE 106 mmol/L (98-107); GFR AFRICAN-AMERICAN > 60; GLUCOSE,RANDOM 87 mg/dL (65-105); SODIUM 139 mmol/L (132-148); TOTAL PROTEIN 8.3 g/dL (6.3-8.3)
[2017-08-10 07:43] LABS: BLOOD UREA NITROGEN < 2 mg/dL (7-17)
[2017-08-10 07:50] LABS: HEMATOCRIT 37.2 % (34.0-47.0); MEAN CELL VOLUME 83.5 fL (81.0-99.0); MEAN CORPUSCULAR HEMOGLOBIN 25.6 pg (27.0-31.0); MEAN CORPUSCULAR HGB CONC 30.7 g/dL (33.0-37.0); MEAN PLATELET VOLUME 8.1 fL (7.2-11.7); RED CELL DISTRIBUTION WIDTH 19.7 % (11.5-14.5); WHITE BLOOD COUNT 7.1 K/uL (4.8-10.8)
[2017-08-10] MEDS: cefTRIAXone IV 1 gm in Dextros 50 ML IVPB SCH (09:58)
[2017-08-10] MEDS ORDERED: Ketamine 50 mg/ml Inj (10 ml) ONE (11:57)
[2017-08-10] MEDS ORDERED: Propofol 10 mg/ml Inj (20 ML) ONE (12:01)
[2017-08-10] MEDS ORDERED: Midazolam 2 MG/2 ML VIAL ONE ×4 (12:01→13:16)
[2017-08-10] MEDS ORDERED: Lactated Ringer's 1,000 ML IV ONE ×4 (12:05→17:18)
[2017-08-10] MEDS ORDERED: Etomidate 20 mg/10ml Inj IV ONE (12:32)
--- NOTE | 2017-08-10 14:48 | PCM.SURG1 ---
Surgeon's Initial Post Op Note - Surgeon's Notes Surgeon: Dr Bowers Bow Maker Machine Tender: Dr Rausch PGY3 Type of Anesthesia: General Endo Pre-Operative Diagnosis: pericardial effusion Operative Findings: 700cc straw colored fluid Post-Operative Diagnosis: as above Operation Performed: pericardial window. xiphoid resection. pericardial chest tube placement x 2 Specimen/Specimens Removed: xiphoid. pericardial fluid. pericardial sac Estimated Blood Loss: EBL {In ML}: 10 Blood Products Given: N/A Drains Used: Chest Tubes (x 2 in pericardium) Post-Op Condition: Good Date of Surgery/Procedure: 08/10/17 Time of Surgery/Procedure: 14:48
--- NOTE | 2017-08-10 15:34 | RAD ---
HISTORY: s/p pericardial window COMPARISON: Chest radiograph dated 08/07/2017 FINDINGS: LUNGS: No active pulmonary disease. PLEURA: No significant pleural effusion identified, no pneumothorax apparent. CARDIOVASCULAR: Decreased size of cardiomediastinal silhouette post pericardial window creation. OSSEOUS STRUCTURES: No significant abnormalities. VISUALIZED UPPER ABDOMEN: Epigastric region skin william. OTHER FINDINGS: Bilateral chest tubes from subxiphoid entry. IMPRESSION: Status post pericardial window with subxiphoid entry bilateral chest tubes. Decreased size of cardiomediastinal silhouette.
[2017-08-10] MEDS: HYDROmorphone 0.5 mg/0.5 ml ISec IVP PRN ×2 (16:05→16:25)
[2017-08-10 16:39] LABS: BODY FLUID TYPE PERICARDIAL
[2017-08-10] MEDS ORDERED: Morphine Monoject Barrel PCA 1mg/ml IV PRN (17:24)
[2017-08-10] MEDS: Morphine Monoject Barrel PCA 1mg/ml IV PRN (17:30)
[2017-08-10] MEDS ORDERED: Albuterol 0.083% Inhal Sol (2.5 mg/3 mL) UD ONE (18:11)
[2017-08-10 18:38] LABS: BF GROSS APPEARANCE CLEAR (CLEAR)
--- NOTE | 2017-08-10 20:06 | CP.PCM.PN ---
Subjective - Date & Time of Evaluation Date of Evaluation: 08/10/17 Time of Evaluation: 13:20 - Subjective Subjective: clinically same Objective - Vital Signs/Intake and Output Vital Signs (last 24 hours): Temp Pulse Resp BP Pulse Ox 98.6 F 87 14 134/103 H 100 08/10/17 18:00 08/10/17 19:00 08/10/17 19:00 08/10/17 19:00 08/10/17 19:00 Intake and Output: 08/10/17 08/11/17 18:59 06:59 Output Total 820 Balance -820 - Medications Medications: Current Medications Diphenhydramine HCl (Benadryl) 25 mg PO Q8 PRN PRN Reason: Rash Last Admin: 08/09/17 21:07 Dose: 25 mg Enoxaparin Sodium (Lovenox) 30 mg SC DAILY [facility] Last Admin: 08/09/17 10:00 Dose: Not Given Ceftriaxone Sodium (Rocephin Iv 1 Gm Duplex) 50 mls @ 100 mls/hr IVPB DAILY [facility] Last Admin: 08/10/17 09:58 Dose: 100 mls/hr Lactated Ringer's (Lactated Ringer's) 1,000 mls @ 125 mls/hr IV .Q8H [facility] Indomethacin (Indocin) 25 mg PO TID [facility] Last Admin: 08/10/17 09:54 Dose: Not Given Morphine Sulfate/Sodium Chloride (Morphine [employer]ner[employer]dnance [employer] Monoject Barrel) 30 mg IV Q4H PRN; Protocol PRN Reason: Pain, moderate (4-7) Last Admin: 08/10/17 17:30 Dose: 30 mg Nicotine (Nicoderm Cq) 1 patch TD DAILY [facility] Last Admin: 08/10/17 09:59 Dose: 1 patch - Labs Labs: 08/10/17 06:42 08/10/17 06:42 PT 12.6 SECONDS (9.7-12.2) H 08/09/17 06:35 INR 1.1 08/09/17 06:35 APTT 35 SECONDS (21-34) H 08/09/17 06:35 - Constitutional Appears: Well - Head Exam Head Exam: ATRAUMATIC, NORMAL INSPECTION, NORMOCEPHALIC - Eye Exam Eye Exam: EOMI, Normal appearance, PERRL Pupil Exam: NORMAL ACCOMODATION, PERRL - ENT Exam ENT Exam: Mucous Membranes Moist, Normal Exam - Neck Exam Neck Exam: Full ROM, Normal Inspection. absent: Lymphadenopathy - Respiratory Exam Respiratory Exam: Decreased Breath Sounds - Cardiovascular Exam Cardiovascular Exam: REGULAR RHYTHM, +S1, +S2 - GI/Abdominal Exam GI & Abdominal Exam: Soft, Diminished Bowel Sounds - Rectal Exam Rectal Exam: Deferred Assessment and Plan (1) Chest pain Status: Acute (2) Pericardial effusion with cardiac tamponade Status: Acute (3) Abscess Status: Acute (4) Anemia Status: Acute (5) Bronchitis Status: Acute (6) Open wound Status: Acute - Assessment and Plan (Free Text) Plan: Patient examined. Pericardiocentesis done. Continue indomethacin, morphine, diphenhydramine. Continue supportive care.
--- NOTE | 2017-08-10 22:48 | CP.PCM.CON ---
History of Present Illness - History of Present Illness History of Present Illness: Attending: Jesica Lemus MD [employer]rication Department Supervisor: Lucas Cueva MD Cardiothoracic surgeon: Dr Bowers Reason for Consult: Critical care management The patient was seen and examined in the ICU post cardiac window Chief Complaint: SOB/ Chest Pain HPI: This is a 36 years old female with no significant past medical history, admitted on 10/07/16 with SOB and dx with very Large Pericardial effusion. She was taken to the OR today for a Pericardial window and is is in the ICU post Operation for critical care management. PMH: Abscess to the right Buttock PSH: Pericardial window 08/10/17 SH: Current smoker; One bag of Marju[place]; Alcohol ingestion FH: States: Unknown family History Allergies: NKDA Medications: reviewed Review of Systems - Constitutional Constitutional: Fatigue. absent: Chills, Fever, Frequent Falls, Headache, Lethargy - EENT Eyes: absent: Diplopia, Floaters, Photophobia, Requires Corrective Lenses Ears: absent: Decreased Hearing, Ear Discharge, Tinnitus Nose/Mouth/Throat: absent: Epistaxis, Nasal Congestion, Nasal Discharge, Sinus Pain, Sinus Pressure - Cardiovascular Cardiovascular: Chest Pain, Diaphoresis, Dyspnea. absent: Edema, Leg Edema - Respiratory Respiratory: Cough, Dyspnea, Hemoptysis. absent: Wheezing, Stridor - Gastrointestinal Gastrointestinal: Nausea. absent: Bloating, Constipation, Diarrhea, Vomiting - Musculoskeletal Musculoskeletal: absent: Arthralgias, Back Pain, Muscle Weakness, Neck Pain, Numbness - Integumentary Integumentary: absent: Pruritus, Rash, Skin Ulcer, Sores, Striae, Swelling - Neurological Neurological: absent: Confusion, Focal Weakness, Weakness - Psychiatric Psychiatric: Other. absent: Anxiety, Confusion, Depression, Hopelessness - Endocrine Endocrine: absent: Palpitations, Polydipsia, Polyphagia, Polyuria - Hematologic/Lymphatic Hematologic: absent: Easy Bleeding, Easy Bruising Past Patient History - Past Medical History & Family History Past Medical History?: Yes - Past Social History Smoking Status: Current Some Days Smoker Chewing Tobacco Use: No Cigar Use: No Alcohol: Social Drugs: Denies Home Situation {Lives}: With Family - CARDIAC Hx Cardiac Disorders: No - PULMONARY Hx Respiratory Disorders: No Other/Comment: PH NODES IN MY LUNGS - NEUROLOGICAL Hx Neurological Disorder: No - HEENT Hx HEENT Problems: No - RENAL Hx Chronic Kidney Disease: No - ENDOCRINE/METABOLIC Hx Endocrine Disorders: No - HEMATOLOGICAL/ONCOLOGICAL Hx Blood Disorders: No - INTEGUMENTARY Other/Comment: inner thighs it. chiness and discoloration - MUSCULOSKELETAL/RHEUMATOLOGICAL Hx Musculoskeletal Disorders: No Hx Falls: No - GASTROINTESTINAL Hx Gastrointestinal Disorders: No - GENITOURINARY/GYNECOLOGICAL Hx Genitourinary Disorders: No - PSYCHIATRIC Hx Substance Use: Yes (1 bag of marijuana /day) - SURGICAL HISTORY Hx Surgeries: Yes Hx Section: Yes (2014 1x) - ANESTHESIA Hx Anesthesia: Yes Hx Anesthesia Reactions: No Hx Malignant Hyperthermia: No Has any member of the family had a problem w/ anesthesia?: No Meds Allergies/Adverse Reactions: Allergies Allergy/AdvReac Type Severity Reaction Status Date / Time No Known Allergies Allergy Verified 08/07/17 19:14 - Medications Medications: Current Medications Diphenhydramine HCl (Benadryl) 25 mg PO Q8 PRN PRN Reason: Rash Last Admin: 08/10/17 22:44 Dose: 25 mg Enoxaparin Sodium (Lovenox) 30 mg SC DAILY [facility] Last Admin: 08/09/17 10:00 Dose: Not Given Ceftriaxone Sodium (Rocephin Iv 1 Gm Duplex) 50 mls @ 100 mls/hr IVPB DAILY [facility] Last Admin: 08/10/17 09:58 Dose: 100 mls/hr Lactated Ringer's (Lactated Ringer's) 1,000 mls @ 125 mls/hr IV .Q8H [facility] Last Admin: 08/10/17 22:01 Dose: 125 mls/hr Indomethacin (Indocin) 25 mg PO TID [facility] Last Admin: 08/10/17 09:54 Dose: Not Given Morphine Sulfate/Sodium Chloride (Morphine Earthmoving Labourer Monoject Barrel) 30 mg IV Q4H PRN; Protocol PRN Reason: Pain, moderate (4-7) Last Admin: 08/10/17 17:30 Dose: 30 mg Nicotine (Nicoderm Cq) 1 patch TD DAILY [facility] Last Admin: 08/10/17 09:59 Dose: 1 patch Physical Exam - Constitutional Appears: No Acute Distress - Head Exam Head Exam: ATRAUMATIC, NORMAL INSPECTION, NORMOCEPHALIC - Eye Exam Eye Exam: EOMI, Normal appearance Pupil Exam: NORMAL ACCOMODATION, PERRL - ENT Exam ENT Exam: Mucous Membranes Moist, Normal Exam, Normal External Ear Exam, Normal Oropharynx - Neck Exam Neck exam: Positive for: Full Rom, Normal Inspection. Negative for: Lymphadenopathy, Tenderness - Respiratory Exam Respiratory Exam: Clear to Auscultation Bilateral. absent: Rales, Rhonchi, Wheezes Additional comments: Pericardial tubes X2 in situ - Cardiovascular Exam Cardiovascular Exam: REGULAR RHYTHM, RRR, +S1, +S2 - GI/Abdominal Exam GI & Abdominal Exam: Normal Bowel Sounds, Soft. absent: Mass, Organomegaly - Rectal Exam Rectal Exam: Deferred - Extremities Exam Extremities exam: Positive for: full ROM, normal inspection. Negative for: calf tenderness, pedal edema - Back Exam Back exam: NORMAL INSPECTION. absent: CVA tenderness (L), CVA tenderness (R) - Neurological Exam Neurological exam: Alert, CN II-XII Intact, Oriented x3, Reflexes Normal - Psychiatric Exam Psychiatric exam: Normal Affect, Normal Mood - Skin Skin Exam: Dry, Intact, Normal Color, Warm Results - Vital Signs Recent Vital Signs: Last Vital Signs Temp 97.6 F 08/10/17 21:39 Pulse 100 H 08/10/17 22:00 Resp 21 08/10/17 22:00 BP 123/88 08/10/17 22:00 Pulse Ox 98 08/10/17 22:00 - Labs Result Diagrams: 08/10/17 06:42 08/10/17 06:42 Labs: Laboratory Results - last 24 hr 08/10/17 08/10/17 08/10/17 06:42 06:42 08:32 WBC 7.1 RBC 4.46 Hgb 11.4 Hct 37.2 MCV 83.5 MCH 25.6 L MCHC 30.7 L RDW 19.7 H Plt Count 286 MPV 8.1 Sodium 139 Potassium 4.0 Chloride 106 Carbon Dioxide 26 Anion Gap 11 BUN < 2 L Creatinine 0.5 L Est GFR ( Amer) > 60 Est GFR (Non-Af Amer) > 60 Random Glucose 87 Calcium 8.6 Total Bilirubin 0.7 AST 65 H ALT 57 H Alkaline Phosphatase 126 Total Protein 8.3 Albumin 3.8 Globulin 4.5 H Albumin/Globulin Ratio 0.8 L Urine HCG, Qual Negative Fluid Source Fluid Appearance Fluid WBC Fluid RBC Fluid Tot Cell Count Fld Monocyte/Macrophag Fluid Comment 08/10/17 16:37 WBC RBC Hgb Hct MCV MCH MCHC RDW Plt Count MPV Sodium Potassium Chloride Carbon Dioxide Anion Gap BUN Creatinine Est GFR ( Amer) Est GFR (Non-Af Amer) Random Glucose Calcium Total Bilirubin AST ALT Alkaline Phosphatase Total Protein Albumin Globulin Albumin/Globulin Ratio Urine HCG, Qual Fluid Source Pericardial Fluid Appearance Clear Fluid WBC 8.0 Fluid RBC 1320.0 H Fluid Tot Cell Count TEST NOT PERFORMED Fld Monocyte/Macrophag TEST NOT PERFORMED Fluid Comment Assessment & Plan - Assessment and Plan (Free Text) Plan: # Pericardial Effusion s/p Pericardial window and drainage of fluid. - Cardio thoracic surgery Dr Walden following - Dr Lucas Cueva cardiology on consult - Pericardial Tubes drainage with Pneumovac - Pain management with CABLE BRAIDER Morphine - Cardiac monitoring #. Nicotine Addiction - Nicotine Patch #. DVT Prophylaxis with Lovenox - Date & Time Date: 08/10/17 Time: 22:48
[2017-08-11] MEDS: Lactated Ringer's 1,000 ML IV SCH ×4 (06:41→18:06)
[2017-08-11 06:43] LABS: BASO % 0.2 % (0.0-2.0); EOS % 0.3 % (0.0-4.0); HEMATOCRIT 38.1 % (34.0-47.0); LYMPH # 0.8 K/uL (1.0-4.3); LYMPH % 5.1 % (20.0-40.0); MEAN CELL VOLUME 82.5 fL (81.0-99.0); MEAN CORPUSCULAR HEMOGLOBIN 25.6 pg (27.0-31.0); MEAN CORPUSCULAR HGB CONC 31.1 g/dL (33.0-37.0); MONO % 6.7 % (0.0-10.0); PLATELET COUNT 273 K/uL (130-400); RED CELL DISTRIBUTION WIDTH 19.4 % (11.5-14.5); WHITE BLOOD COUNT 14.7 K/uL (4.8-10.8)
[2017-08-11 07:06] LABS: ALKALINE PHOSPHATASE 83 U/L (38-126); ALT/SGPT 39 U/L (9-52); AST/SGOT 32 U/L (14-36); BILIRUBIN,TOTAL 1.2 mg/dL (0.2-1.3); CALCIUM 7.1 mg/dl (8.6-10.4); CARBON DIOXIDE 20 mmol/L (22-30); CHLORIDE 101 mmol/L (98-107); GFR AFRICAN-AMERICAN > 60; GLUCOSE,RANDOM 127 mg/dL (65-105); PHOSPHOROUS 3.7 mg/dL (2.5-4.5); POTASSIUM 3.8 mmol/L (3.6-5.2); SODIUM 130 mmol/L (132-148); TOTAL PROTEIN 5.4 g/dL (6.3-8.3)
[2017-08-11 07:28] LABS: BLOOD UREA NITROGEN < 2 mg/dL (7-17)
[2017-08-11 08:48] LABS: EOSINOPHIL 1 % (0-4); NEUTROPHIL 80 % (50-75); TOTAL CELLS COUNTED 100
--- NOTE | 2017-08-11 10:00 | CP.PCM.PN ---
Subjective - Date & Time of Evaluation Date of Evaluation: 08/11/17 Time of Evaluation: 08:30 - Subjective Subjective: CT surgery progress note for Dr. Marko Mojica, PGY-1 Pt S & E at bedside. Pt reports pain at surgical site, alleviated by splinting and CLERK of morphine. Did not sleep much last night. Reports feeling swollen at surgical site- currently with ice to area. Is requesting to keep Cui for a while to allow her to sleep. SOB improved. Denies N & V, F & C, other complaints. CT with 640cc serosang output/12H, UOP 650 cc/12H. Objective - Vital Signs/Intake and Output Vital Signs (last 24 hours): Temp Pulse Resp BP Pulse Ox 98.2 F 105 H 19 105/65 100 08/11/17 04:00 08/11/17 07:00 08/11/17 07:00 08/11/17 07:00 08/11/17 07:00 Intake and Output: 08/11/17 08/11/17 06:59 18:59 Intake Total 2280 442 Output Total 1335 50 Balance 945 392 - Medications Medications: Current Medications Diphenhydramine HCl (Benadryl) 25 mg PO Q8 PRN PRN Reason: Rash Last Admin: 08/10/17 22:44 Dose: 25 mg Enoxaparin Sodium (Lovenox) 30 mg SC DAILY [facility] Last Admin: 08/09/17 10:00 Dose: Not Given Lactated Ringer's (Lactated Ringer's) 1,000 mls @ 125 mls/hr IV .Q8H [facility] Last Admin: 08/11/17 06:44 Dose: 125 mls/hr Ceftriaxone Sodium 1 gm/ (Sodium Chloride) 100 mls @ 100 mls/hr IVPB DAILY [facility] Magnesium Sulfate/Dextrose (Magnesium Sulfate 1 Gm/100 Ml D5w) 1 gm in 100 mls @ 300 mls/hr IVPB Q30M [facility] Stop: 08/11/17 10:49 Indomethacin (Indocin) 25 mg PO TID [facility] Last Admin: 08/10/17 09:54 Dose: Not Given Morphine Sulfate/Sodium Chloride (Morphine Sr. Merchandise Planner Monoject Barrel) 30 mg IV Q4H PRN; Protocol PRN Reason: Pain, moderate (4-7) Last Admin: 08/10/17 17:30 Dose: 30 mg Nicotine (Nicoderm Cq) 1 patch TD DAILY [facility] Last Admin: 08/10/17 09:59 Dose: 1 patch - Labs Labs: 08/11/17 06:30 08/11/17 06:32 PT 12.6 SECONDS (9.7-12.2) H 08/09/17 06:35 INR 1.1 08/09/17 06:35 APTT 35 SECONDS (21-34) H 08/09/17 06:35 - Constitutional Appears: Non-toxic, No Acute Distress - Head Exam Head Exam: ATRAUMATIC, NORMAL INSPECTION, NORMOCEPHALIC - Eye Exam Eye Exam: EOMI, Normal appearance - ENT Exam ENT Exam: Mucous Membranes Moist, Normal Exam - Neck Exam Neck Exam: Full ROM, Normal Inspection - Respiratory Exam Respiratory Exam: Chest Wall Tenderness (over surgical incision site, site with dressing in place- Clean/dry/intact), Clear to Ausculation Bilateral, NORMAL BREATHING PATTERN. absent: Accessory Muscle Use, Rales, Rhonchi, Wheezes, Respiratory Distress - Cardiovascular Exam Cardiovascular Exam: REGULAR RHYTHM, +S1, +S2 - GI/Abdominal Exam GI & Abdominal Exam: Soft, Tenderness (over surgical sites), Normal Bowel Sounds. absent: Distended, Firm, Guarding, Rigid - Extremities Exam Extremities Exam: Normal Inspection. absent: Pedal Edema - Neurological Exam Neurological Exam: Alert, Awake, CN II-XII Intact, Oriented x3 - Psychiatric Exam Psychiatric exam: Normal Affect, Normal Mood - Skin Skin Exam: Dry, Intact, Normal Color, Warm Assessment and Plan - Assessment and Plan (Free Text) Assessment: 36F POD#1 s/p pericardial window 2/2 pericardial effusion Plan: Cont with CT, monitor output Will d/c Cui later today Cont CLERK of morphine for comfort Start PT today Encourage IS use Encourage OOBTC Advanced to FLD for lunch, will monitor for tolerance Further recs as per attending PAULINO attending Galina, PGY-1
[2017-08-11] MEDS: Magnesium Sulfate 1 gm in D5W 1 GM/100 ML BAG IVPB SCH ×2 (10:39→10:40)
[2017-08-11] MEDS: Morphine Monoject Barrel PCA 1mg/ml IV PRN (14:10)
--- NOTE | 2017-08-11 17:10 | CP.CCUPN ---
CCU Objective - Vital Signs / Intake & Output Intake and Output (Last 8hrs): Intake & Output 08/11/17 08/11/17 08/11/17 06:59 14:59 22:59 Intake Total 2035 1732 Output Total 710 675 Balance 1325 1057 Intake: Intake, IV Amount 1125 812 Right Hand 1125 812 Oral 910 920 Output: Chest Tube Drainage 150 Anterior Chest 150 Urine 560 675 Urethral (Cui) 560 675 - Medications Active Medications: Active Medications Generic Name Dose Route Start Last Admin Trade Name Freq PRN Reason Stop Dose Admin Diphenhydramine HCl 25 mg 08/08/17 20:29 08/10/17 22:44 Benadryl PO 25 mg Q8 PRN Administration Rash Enoxaparin Sodium 40 mg 08/11/17 22:00 Lovenox SC DAILY [facility] Lactated Ringer's 1,000 mls @ 125 mls/hr 08/10/17 14:45 08/11/17 06:44 Lactated Ringer's IV 125 mls/hr .Q8H [facility] Administration Ceftriaxone Sodium 1 gm/ 100 mls @ 100 mls/hr 08/11/17 10:00 08/11/17 10:38 Sodium Chloride IVPB 100 mls/hr DAILY [facility] Administration Indomethacin 25 mg 08/11/17 14:00 08/11/17 13:27 Indocin PO 25 mg TID [facility] Administration Morphine Sulfate/Sodium Chloride 30 mg 08/10/17 17:11 08/11/17 14:10 Morphine Pbx Inspector Monoject Barrel IV 30 mg Q4H PRN Administration Pain, moderate (4-7) Protocol Nicotine 1 patch 08/09/17 12:00 08/11/17 10:41 Nicoderm Cq TD Not Given DAILY [facility] - Patient Studies Lab Studies: Microbiology Studies 08/08/17 14:00 Blood Culture - Preliminary Blood-Venous NO GROWTH AFTER 3 DAYS 08/08/17 13:30 Blood Culture - Preliminary Blood-Venous NO GROWTH AFTER 3 DAYS 08/10/17 14:19 Gram Stain - Final Other: Please Indicate 08/10/17 14:06 Gram Stain - Final Pericardial Fluid Body Fluid Culture - Preliminary NO GROWTH AFTER 24 HOURS Lab Studies 08/11/17 08/11/17 08/10/17 Range/Units 06:32 06:30 16:37 WBC 14.7 H D (4.8-10.8) K/uL RBC 4.62 (3.80-5.20) Mil/uL Hgb 11.9 (11.0-16.0) g/dL Hct 38.1 (34.0-47.0) % MCV 82.5 (81.0-99.0) fL MCH 25.6 L (27.0-31.0) pg MCHC 31.1 L (33.0-37.0) g/dL RDW 19.4 H (11.5-14.5) % Plt Count 273 (130-400) K/uL MPV 8.0 (7.2-11.7) fL Neut % (Auto) 87.7 H (50.0-75.0) % Lymph % (Auto) 5.1 L (20.0-40.0) % [place] % (Auto) 6.7 (0.0-10.0) % Eos % (Auto) 0.3 (0.0-4.0) % Baso % (Auto) 0.2 (0.0-2.0) % Neut # 12.9 H (1.8-7.0) K/uL Lymph # 0.8 L (1.0-4.3) K/uL [place] # 1.0 H (0.0-0.8) K/uL Eos # 0.0 (0.0-0.7) K/uL Baso # 0.0 (0.0-0.2) K/uL Neutrophils % (Manual) 80 H (50-75) % Band Neutrophils % 4 H (0-2) % Lymphocytes % (Manual) 8 L (20-40) % Monocytes % (Manual) 7 (0-10) % Eosinophils % (Manual) 1 (0-4) % Platelet Estimate Normal (NORMAL) Anisocytosis (manual) Moderate Target Cells Slight Sodium 130 L (132-148) mmol/L Potassium 3.8 (3.6-5.2) mmol/L Chloride 101 (98-107) mmol/L Carbon Dioxide 20 L (22-30) mmol/L Anion Gap 12 (10-20) BUN < 2 L (7-17) mg/dL Creatinine 0.4 L (0.7-1.2) mg/dL Est GFR ( Amer) > 60 Est GFR (Non-Af Amer) > 60 Random Glucose 127 H (65-105) mg/dL Calcium 7.1 L (8.6-10.4) mg/dl Phosphorus 3.7 (2.5-4.5) mg/dL Magnesium 1.0 L* (1.6-2.3) mg/dL Total Bilirubin 1.2 (0.2-1.3) mg/dL AST 32 (14-36) U/L ALT 39 (9-52) U/L Alkaline Phosphatase 83 (38-126) U/L Total Protein 5.4 L (6.3-8.3) g/dL Albumin 2.8 L D (3.5-5.0) g/dL Globulin 2.6 (2.2-3.9) gm/dL Albumin/Globulin Ratio 1.0 (1.0-2.1) Fluid Appearance Clear (CLEAR) Fluid WBC 8.0 (0.0-300.0) /mm3 Fluid RBC 1320.0 H (0.0-0.0) /mm3 Fluid Tot Cell Count TEST NOT PERFORMED Fld Monocyte/Macrophag TEST NOT PERFORMED Fluid Comment Laboratory Results - last 24 hr 08/10/17 08/11/17 08/11/17 16:37 06:30 06:32 WBC 14.7 H D RBC 4.62 Hgb 11.9 Hct 38.1 MCV 82.5 MCH 25.6 L MCHC 31.1 L RDW 19.4 H Plt Count 273 MPV 8.0 Neut % (Auto) 87.7 H Lymph % (Auto) 5.1 L [place] % (Auto) 6.7 Eos % (Auto) 0.3 Baso % (Auto) 0.2 Neut # 12.9 H Lymph # 0.8 L [place] # 1.0 H Eos # 0.0 Baso # 0.0 Neutrophils % (Manual) 80 H Band Neutrophils % 4 H Lymphocytes % (Manual) 8 L Monocytes % (Manual) 7 Eosinophils % (Manual) 1 Platelet Estimate Normal Anisocytosis (manual) Moderate Target Cells Slight Sodium 130 L Potassium 3.8 Chloride 101 Carbon Dioxide 20 L Anion Gap 12 BUN < 2 L Creatinine 0.4 L Est GFR ( Amer) > 60 Est GFR (Non-Af Amer) > 60 Random Glucose 127 H Calcium 7.1 L Phosphorus 3.7 Magnesium 1.0 L* Total Bilirubin 1.2 AST 32 ALT 39 Alkaline Phosphatase 83 Total Protein 5.4 L Albumin 2.8 L D Globulin 2.6 Albumin/Globulin Ratio 1.0 Fluid Appearance Clear Fluid WBC 8.0 Fluid RBC 1320.0 H Fluid Tot Cell Count TEST NOT PERFORMED Fld Monocyte/Macrophag TEST NOT PERFORMED Fluid Comment Critical Care Progress Note - Nutrition Nutrition: Nutrition Category Date Time Status Heart Healthy Diet [DIET] Diets 08/11/17 Dinner Active
--- NOTE | 2017-08-11 17:19 | CP.CCUPN ---
CCU Subjective - Physician Review Events Since Last Encounter (Free Text): 08/11/17 17:17 no complaints. CCU Objective - Vital Signs / Intake & Output Intake and Output (Last 8hrs): Intake & Output 08/11/17 08/11/17 08/11/17 06:59 14:59 22:59 Intake Total 2035 1732 Output Total 710 675 Balance 1325 1057 Intake: Intake, IV Amount 1125 812 Right Hand 1125 812 Oral 910 920 Output: Chest Tube Drainage 150 Anterior Chest 150 Urine 560 675 Urethral (Cui) 560 675 - Physical Exam Head: Positive for: Atraumatic, Normocephalic Pupils: Positive for: PERRL Extroacular Muscles: Positive for: EOMI Conjunctiva: Positive for: Normal Mouth: Positive for: Moist Mucous Membranes Respiratory/Chest: Positive for: Clear to Auscultation, Good Air Exchange Cardiovascular: Positive for: Tachycardic Abdomen: Positive for: Normal Bowel Sounds. Negative for: Tenderness, Distention Neurological: Positive for: GCS=15, CN II-XII Intact, Speech Normal Psychiatric: Positive for: Alert, Oriented x 3 - Medications Active Medications: Active Medications Generic Name Dose Route Start Last Admin Trade Name Freq PRN Reason Stop Dose Admin Diphenhydramine HCl 25 mg 08/08/17 20:29 08/10/17 22:44 Benadryl PO 25 mg Q8 PRN Administration Rash Enoxaparin Sodium 40 mg 08/11/17 22:00 Lovenox SC DAILY [facility] Lactated Ringer's 1,000 mls @ 125 mls/hr 08/10/17 14:45 08/11/17 06:44 Lactated Ringer's IV 125 mls/hr .Q8H [facility] Administration Ceftriaxone Sodium 1 gm/ 100 mls @ 100 mls/hr 08/11/17 10:00 08/11/17 10:38 Sodium Chloride IVPB 100 mls/hr DAILY [facility] Administration Indomethacin 25 mg 08/11/17 14:00 08/11/17 13:27 Indocin PO 25 mg TID [facility] Administration Morphine Sulfate/Sodium Chloride 30 mg 08/10/17 17:11 08/11/17 14:10 Morphine Dimpling Machine Operator Monoject Barrel IV 30 mg Q4H PRN Administration Pain, moderate (4-7) Protocol Nicotine 1 patch 08/09/17 12:00 08/11/17 10:41 Nicoderm Cq TD Not Given DAILY [facility] - Patient Studies Lab Studies: Microbiology Studies 08/08/17 14:00 Blood Culture - Preliminary Blood-Venous NO GROWTH AFTER 3 DAYS 08/08/17 13:30 Blood Culture - Preliminary Blood-Venous NO GROWTH AFTER 3 DAYS 08/10/17 14:19 Gram Stain - Final Other: Please Indicate 08/10/17 14:06 Gram Stain - Final Pericardial Fluid Body Fluid Culture - Preliminary NO GROWTH AFTER 24 HOURS Lab Studies 08/11/17 08/11/17 08/10/17 Range/Units 06:32 06:30 16:37 WBC 14.7 H D (4.8-10.8) K/uL RBC 4.62 (3.80-5.20) Mil/uL Hgb 11.9 (11.0-16.0) g/dL Hct 38.1 (34.0-47.0) % MCV 82.5 (81.0-99.0) fL MCH 25.6 L (27.0-31.0) pg MCHC 31.1 L (33.0-37.0) g/dL RDW 19.4 H (11.5-14.5) % Plt Count 273 (130-400) K/uL MPV 8.0 (7.2-11.7) fL Neut % (Auto) 87.7 H (50.0-75.0) % Lymph % (Auto) 5.1 L (20.0-40.0) % [place] % (Auto) 6.7 (0.0-10.0) % Eos % (Auto) 0.3 (0.0-4.0) % Baso % (Auto) 0.2 (0.0-2.0) % Neut # 12.9 H (1.8-7.0) K/uL Lymph # 0.8 L (1.0-4.3) K/uL [place] # 1.0 H (0.0-0.8) K/uL Eos # 0.0 (0.0-0.7) K/uL Baso # 0.0 (0.0-0.2) K/uL Neutrophils % (Manual) 80 H (50-75) % Band Neutrophils % 4 H (0-2) % Lymphocytes % (Manual) 8 L (20-40) % Monocytes % (Manual) 7 (0-10) % Eosinophils % (Manual) 1 (0-4) % Platelet Estimate Normal (NORMAL) Anisocytosis (manual) Moderate Target Cells Slight Sodium 130 L (132-148) mmol/L Potassium 3.8 (3.6-5.2) mmol/L Chloride 101 (98-107) mmol/L Carbon Dioxide 20 L (22-30) mmol/L Anion Gap 12 (10-20) BUN < 2 L (7-17) mg/dL Creatinine 0.4 L (0.7-1.2) mg/dL Est GFR ( Amer) > 60 Est GFR (Non-Af Amer) > 60 Random Glucose 127 H (65-105) mg/dL Calcium 7.1 L (8.6-10.4) mg/dl Phosphorus 3.7 (2.5-4.5) mg/dL Magnesium 1.0 L* (1.6-2.3) mg/dL Total Bilirubin 1.2 (0.2-1.3) mg/dL AST 32 (14-36) U/L ALT 39 (9-52) U/L Alkaline Phosphatase 83 (38-126) U/L Total Protein 5.4 L (6.3-8.3) g/dL Albumin 2.8 L D (3.5-5.0) g/dL Globulin 2.6 (2.2-3.9) gm/dL Albumin/Globulin Ratio 1.0 (1.0-2.1) Fluid Appearance Clear (CLEAR) Fluid WBC 8.0 (0.0-300.0) /mm3 Fluid RBC 1320.0 H (0.0-0.0) /mm3 Fluid Tot Cell Count TEST NOT PERFORMED Fld Monocyte/Macrophag TEST NOT PERFORMED Fluid Comment Laboratory Results - last 24 hr 08/10/17 08/11/17 08/11/17 16:37 06:30 06:32 WBC 14.7 H D RBC 4.62 Hgb 11.9 Hct 38.1 MCV 82.5 MCH 25.6 L MCHC 31.1 L RDW 19.4 H Plt Count 273 MPV 8.0 Neut % (Auto) 87.7 H Lymph % (Auto) 5.1 L [place] % (Auto) 6.7 Eos % (Auto) 0.3 Baso % (Auto) 0.2 Neut # 12.9 H Lymph # 0.8 L [place] # 1.0 H Eos # 0.0 Baso # 0.0 Neutrophils % (Manual) 80 H Band Neutrophils % 4 H Lymphocytes % (Manual) 8 L Monocytes % (Manual) 7 Eosinophils % (Manual) 1 Platelet Estimate Normal Anisocytosis (manual) Moderate Target Cells Slight Sodium 130 L Potassium 3.8 Chloride 101 Carbon Dioxide 20 L Anion Gap 12 BUN < 2 L Creatinine 0.4 L Est GFR ( Amer) > 60 Est GFR (Non-Af Amer) > 60 Random Glucose 127 H Calcium 7.1 L Phosphorus 3.7 Magnesium 1.0 L* Total Bilirubin 1.2 AST 32 ALT 39 Alkaline Phosphatase 83 Total Protein 5.4 L Albumin 2.8 L D Globulin 2.6 Albumin/Globulin Ratio 1.0 Fluid Appearance Clear Fluid WBC 8.0 Fluid RBC 1320.0 H Fluid Tot Cell Count TEST NOT PERFORMED Fld Monocyte/Macrophag TEST NOT PERFORMED Fluid Comment Review of Systems - Review of Systems All systems: reviewed and no additional remarkable complaints except - Cardiovascular Cardiovascular: Chest Pain Critical Care Progress Note - Nutrition Nutrition: Nutrition Category Date Time Status Heart Healthy Diet [DIET] Diets 08/11/17 Dinner Active Assessment/Plan (1) Pericardial effusion with cardiac tamponade Assessment and plan: 36 years old female with no significant past medical history, admitted on with SOB and dx with very Large Pericardial effusion. She was taken to the OR today for a Pericardial window and is is in the ICU post Operation for critical care management. Neuro: alert and oriented x 3 Pulm: no acute issues, breathing spontaneously on room air CV: hemodynamically stable. Indomethacin for possible viral pericarditis which led to pericardial effusion. drains in place. Hem: no acute issues Renal: urine output wnl. will monitor Endo: no acute issues GI: heart healthy diet ID: no acute issues DVT proph - lovenox GI proph - not currently indicated Code status - full code Critical Care Time spent 35 minutes Multi-disciplinary rounds were performed with house staff, nursing, speech therapy, respiratory therapy, pharmacy and nutrition with integrated input from the primary team/attending and other consulting services. The documented time is cumulative and includes review of patient data/exams/labs/chart review and examination of the patient on rounds and throughout the day; time is exclusive of any procedures or teaching time. Current Visit: Yes Status: Acute
--- NOTE | 2017-08-11 18:40 | CP.PCM.PN ---
Subjective - Date & Time of Evaluation Date of Evaluation: 08/11/17 Time of Evaluation: 14:00 - Subjective Subjective: clinically same Objective - Vital Signs/Intake and Output Vital Signs (last 24 hours): Temp Pulse Resp BP Pulse Ox 98.7 F 107 H 18 101/66 98 08/11/17 12:00 08/11/17 12:00 08/11/17 12:00 08/11/17 12:00 08/11/17 12:00 Intake and Output: 08/11/17 08/11/17 06:59 18:59 Intake Total 2280 2382 Output Total 1335 825 Balance 945 1557 - Medications Medications: Current Medications Diphenhydramine HCl (Benadryl) 25 mg PO Q8 PRN PRN Reason: Rash Last Admin: 08/10/17 22:44 Dose: 25 mg Enoxaparin Sodium (Lovenox) 40 mg SC DAILY [facility] Ceftriaxone Sodium 1 gm/ (Sodium Chloride) 100 mls @ 100 mls/hr IVPB DAILY [facility] Last Admin: 08/11/17 10:38 Dose: 100 mls/hr Lactated Ringer's (Lactated Ringer's) 1,000 mls @ 75 mls/hr IV .[id number] [facility] Last Admin: 08/11/17 18:06 Dose: 75 mls/hr Indomethacin (Indocin) 25 mg PO TID [facility] Last Admin: 08/11/17 18:02 Dose: 25 mg Morphine Sulfate/Sodium Chloride (Morphine Agronomy Internship Monoject Barrel) 30 mg IV Q4H PRN; Protocol PRN Reason: Pain, moderate (4-7) Last Admin: 08/11/17 14:10 Dose: 30 mg Nicotine (Nicoderm Cq) 1 patch TD DAILY [facility] Last Admin: 08/11/17 10:41 Dose: Not Given - Labs Labs: 08/11/17 06:30 08/11/17 06:32 PT 12.6 SECONDS (9.7-12.2) H 08/09/17 06:35 INR 1.1 08/09/17 06:35 APTT 35 SECONDS (21-34) H 08/09/17 06:35 - Constitutional Appears: Well - Head Exam Head Exam: ATRAUMATIC, NORMAL INSPECTION, NORMOCEPHALIC - Eye Exam Eye Exam: EOMI, Normal appearance, PERRL Pupil Exam: NORMAL ACCOMODATION, PERRL - ENT Exam ENT Exam: Mucous Membranes Moist, Normal Exam - Neck Exam Neck Exam: Full ROM, Normal Inspection. absent: Lymphadenopathy - Respiratory Exam Respiratory Exam: Clear to Ausculation Bilateral, NORMAL BREATHING PATTERN - Cardiovascular Exam Cardiovascular Exam: REGULAR RHYTHM, +S1, +S2. absent: Murmur - GI/Abdominal Exam GI & Abdominal Exam: Soft, Normal Bowel Sounds. absent: Tenderness - Rectal Exam Rectal Exam: Deferred - Extremities Exam Extremities Exam: Full ROM, Normal Capillary Refill, Normal Inspection. absent : Joint Swelling, Pedal Edema - Back Exam Back Exam: NORMAL INSPECTION Assessment and Plan (1) Chest pain Status: Acute (2) Pericardial effusion with cardiac tamponade Status: Acute (3) Abscess Status: Acute (4) Anemia Status: Acute (5) Bronchitis Status: Acute (6) Open wound Status: Acute - Assessment and Plan (Free Text) Plan: Patient examined. Patient better. Continue indomethacin and morphine. Continue diphenhydramine. Continue supportive care.
[2017-08-11] MEDS ORDERED: Enoxaparin 30 mg Syringe SC SCH (22:00)
[2017-08-11] MEDS: Enoxaparin 40 mg Syringe SC SCH (22:37)
[2017-08-12] MEDS: Lactated Ringer's 1,000 ML IV SCH ×3 (06:46→20:00)
--- NOTE | 2017-08-12 08:26 | RAD ---
HISTORY: Pericardiac tubes COMPARISON: Portable chest 08/10/2017. FINDINGS: LUNGS: Bilateral basilar infiltrates are identified, greater the right than left. PLEURA: No pneumothorax bilaterally. Bilateral pleural effusions are suspected though mild. Pericardial drain is identified placed terminating at the right mediastinal border. CARDIOVASCULAR: Prominent cardiac silhouette. OSSEOUS STRUCTURES: No significant abnormalities. VISUALIZED UPPER ABDOMEN: Normal. OTHER FINDINGS: None. IMPRESSION: Bilateral basilar infiltrate infiltrates are appreciated with small pleural effusions suspected bilaterally as well. Right pericardial drains identified in position as discussed above with prominent cardiac silhouette noted. No pulmonary vascular derangement identified.
--- NOTE | 2017-08-12 08:28 | CP.PCM.PN ---
Subjective - Date & Time of Evaluation Date of Evaluation: 08/12/17 Time of Evaluation: 08:26 - Subjective Subjective: CT surgery progress note. Dr. Bowers Pt seen and examine at bedside. No acute events overnight. Patient states that she had a bad dream and accidentally pulled out her IV last night. Denies any F/ C. Does report mild cough. No CP/SOB. Surgical site pain well controlled. No new complaints. CT in place to suction. 100cc of serosang during day yesterday, 50cc overnight. Objective - Vital Signs/Intake and Output Vital Signs (last 24 hours): Temp Pulse Resp BP Pulse Ox 97.3 F L 96 H 21 109/89 95 08/12/17 00:00 08/12/17 06:00 08/12/17 06:00 08/12/17 06:00 08/12/17 06:00 Intake and Output: 08/12/17 08/12/17 06:59 18:59 Intake Total 1895 120 Output Total 2050 50 Balance -155 70 - Medications Medications: Current Medications Diphenhydramine HCl (Benadryl) 25 mg PO Q8 PRN PRN Reason: Rash Last Admin: 08/11/17 22:22 Dose: 25 mg Enoxaparin Sodium (Lovenox) 40 mg SC DAILY [facility] Last Admin: 08/11/17 22:37 Dose: 40 mg Ceftriaxone Sodium 1 gm/ (Sodium Chloride) 100 mls @ 100 mls/hr IVPB DAILY [facility] Last Admin: 08/11/17 10:38 Dose: 100 mls/hr Lactated Ringer's (Lactated Ringer's) 1,000 mls @ 75 mls/hr IV .[id number] [facility] Last Admin: 08/12/17 06:46 Dose: Not Given Indomethacin (Indocin) 25 mg PO TID [facility] Last Admin: 08/11/17 18:02 Dose: 25 mg Morphine Sulfate/Sodium Chloride (Morphine Osteopathic Medicine Teacher Monoject Barrel) 30 mg IV Q4H PRN; Protocol PRN Reason: Pain, moderate (4-7) Last Admin: 08/11/17 14:10 Dose: 30 mg Nicotine (Nicoderm Cq) 1 patch TD DAILY [facility] Last Admin: 08/11/17 10:41 Dose: Not Given - Labs Labs: 08/11/17 06:30 08/11/17 06:32 PT 12.6 SECONDS (9.7-12.2) H 08/09/17 06:35 INR 1.1 08/09/17 06:35 APTT 35 SECONDS (21-34) H 08/09/17 06:35 - Constitutional Appears: Well, Non-toxic, No Acute Distress - Head Exam Head Exam: ATRAUMATIC, NORMAL INSPECTION, NORMOCEPHALIC - Eye Exam Eye Exam: EOMI - ENT Exam ENT Exam: Mucous Membranes Moist - Respiratory Exam Respiratory Exam: NORMAL BREATHING PATTERN. absent: Accessory Muscle Use, Wheezes, Respiratory Distress Additional comments: mediastinal chest tube x2 in place. dressing clean, dry and intact - GI/Abdominal Exam GI & Abdominal Exam: Soft. absent: Guarding, Rigid, Tenderness - Extremities Exam Extremities Exam: Normal Inspection. absent: Calf Tenderness - Neurological Exam Neurological Exam: Alert, Awake, Oriented x3 - Psychiatric Exam Psychiatric exam: Normal Affect, Normal Mood - Skin Skin Exam: Dry, Intact, Normal Color, Warm Assessment and Plan - Assessment and Plan (Free Text) Assessment: 36yo F with pericardial effusion. S/p Pericardial window 08/10 - Continue chest tube to suction. Monitor output - Strict I&Os - f/u pericardial fluid analysis - Continue pain management - Physical therapy eval and treat - tolerating diet Further recs as per Dr. Elissa Mock PGY1 surgery pager: [phone]
[2017-08-12 09:58] LABS: BASO # 0.1 K/uL (0.0-0.2); BASO % 0.8 % (0.0-2.0); EOS # 0.2 K/uL (0.0-0.7); EOS % 1.9 % (0.0-4.0); HEMATOCRIT 33.2 % (34.0-47.0); LYMPH % 7.9 % (20.0-40.0); MEAN CELL VOLUME 84.3 fL (81.0-99.0); MEAN CORPUSCULAR HEMOGLOBIN 25.7 pg (27.0-31.0); MEAN CORPUSCULAR HGB CONC 30.4 g/dL (33.0-37.0); MEAN PLATELET VOLUME 8.1 fL (7.2-11.7); MONO # 1.1 K/uL (0.0-0.8); MONO % 8.6 % (0.0-10.0); PLATELET COUNT 204 K/uL (130-400); RED CELL DISTRIBUTION WIDTH 19.5 % (11.5-14.5); WHITE BLOOD COUNT 12.9 K/uL (4.8-10.8)
[2017-08-12 10:21] LABS: EOSINOPHIL 2 % (0-4); NEUTROPHIL 77 % (50-75); REACTIVE LYMPHOCYTES 2 % (0-0); TOTAL CELLS COUNTED 100
[2017-08-12 10:40] LABS: CALCIUM 7.4 mg/dl (8.6-10.4); CARBON DIOXIDE 24 mmol/L (22-30); CHLORIDE 101 mmol/L (98-107); GFR AFRICAN-AMERICAN > 60; GLUCOSE,RANDOM 61 mg/dL (65-105); MAGNESIUM 1.3 mg/dL (1.6-2.3); POTASSIUM 3.6 mmol/L (3.6-5.2); SODIUM 133 mmol/L (132-148)
[2017-08-12 10:43] LABS: BLOOD UREA NITROGEN < 2 mg/dL (7-17)
[2017-08-12] MEDS: Enoxaparin 40 mg Syringe SC SCH (10:47)
[2017-08-12] MEDS: Magnesium Sulfate 1 gm in D5W 1 GM/100 ML BAG IVPB SCH ×2 (13:00→13:25)
--- NOTE | 2017-08-12 16:32 | CP.CCUPN ---
CCU Subjective - Physician Review Events Since Last Encounter (Free Text): 08/12/17 16:31 no complaints. CCU Objective - Vital Signs / Intake & Output Vital Signs (Last 4 hours): Vital Signs Pulse Resp BP Pulse Ox 08/12/17 14:05 95 H 19 08/12/17 13:00 94 H 22 100 08/12/17 12:58 91 H 16 122/72 72 L Intake and Output (Last 8hrs): Intake & Output 08/12/17 08/12/17 08/12/17 06:59 14:59 22:59 Intake Total 1130 1447.5 Output Total 1650 450 Balance -520 997.5 Intake: Intake, IV Amount 450 487.5 Left Wrist 487.5 Right Hand 450 0 Oral 680 960 Output: Chest Tube Drainage 50 Anterior Chest 50 Urine 1650 400 Urine, Voided 1650 400 - Physical Exam Head: Positive for: Atraumatic, Normocephalic Pupils: Positive for: PERRL Extroacular Muscles: Positive for: EOMI Conjunctiva: Positive for: Normal Mouth: Positive for: Moist Mucous Membranes Respiratory/Chest: Positive for: Clear to Auscultation, Good Air Exchange Cardiovascular: Positive for: Tachycardic Abdomen: Positive for: Normal Bowel Sounds. Negative for: Tenderness, Distention Neurological: Positive for: GCS=15, CN II-XII Intact, Speech Normal Psychiatric: Positive for: Alert, Oriented x 3 - Medications Active Medications: Active Medications Generic Name Dose Route Start Last Admin Trade Name Freq PRN Reason Stop Dose Admin Diphenhydramine HCl 25 mg 08/08/17 20:29 08/11/17 22:22 Benadryl PO 25 mg Q8 PRN Administration Rash Enoxaparin Sodium 40 mg 08/11/17 22:15 08/12/17 10:47 Lovenox SC 40 mg DAILY [facility] Administration Ceftriaxone Sodium 1 gm/ 100 mls @ 100 mls/hr 08/11/17 10:00 08/12/17 10:47 Sodium Chloride IVPB 100 mls/hr DAILY [facility] Administration Lactated Ringer's 1,000 mls @ 75 mls/hr 08/11/17 17:20 08/12/17 06:46 Lactated Ringer's IV Not Given .[id number] [facility] Indomethacin 25 mg 08/11/17 14:00 08/12/17 14:41 Indocin PO 25 mg TID [facility] Administration Morphine Sulfate/Sodium Chloride 30 mg 08/10/17 17:11 08/11/17 14:10 Morphine Linux Vmware Administrator Monoject Barrel IV 30 mg Q4H PRN Administration Pain, moderate (4-7) Protocol Nicotine 1 patch 08/09/17 12:00 08/12/17 13:26 Nicoderm Cq TD 1 patch DAILY [facility] Administration - Patient Studies Lab Studies: Microbiology Studies 08/10/17 06:00 MRSA Culture (Admit) - Final Nose MRSA NOT DETECTED 08/10/17 12:16 Mycobacterial Culture - Preliminary Other: Please Indicate 08/10/17 12:16 Mycobacterial Culture - Preliminary Other: Please Indicate 08/08/17 14:00 Blood Culture - Preliminary Blood-Venous NO GROWTH AFTER 4 DAYS 08/08/17 13:30 Blood Culture - Preliminary Blood-Venous NO GROWTH AFTER 4 DAYS 08/10/17 14:10 Anaerobic Culture - Final Pericardial Fluid NO ANAEROBES ISOLATED. 08/10/17 14:19 Gram Stain - Final Other: Please Indicate Tissue Culture - Preliminary No growth. 08/10/17 14:06 Gram Stain - Final Pericardial Fluid Body Fluid Culture - Preliminary NO GROWTH AFTER 2 DAYS Lab Studies 08/12/17 08/12/17 Range/Units 09:28 09:28 WBC 12.9 H (4.8-10.8) K/uL RBC 3.94 (3.80-5.20) Mil/uL Hgb 10.1 L (11.0-16.0) g/dL Hct 33.2 L (34.0-47.0) % MCV 84.3 (81.0-99.0) fL MCH 25.7 L (27.0-31.0) pg MCHC 30.4 L (33.0-37.0) g/dL RDW 19.5 H (11.5-14.5) % Plt Count 204 (130-400) K/uL MPV 8.1 (7.2-11.7) fL Neut % (Auto) 80.8 H (50.0-75.0) % Lymph % (Auto) 7.9 L (20.0-40.0) % [place] % (Auto) 8.6 (0.0-10.0) % Eos % (Auto) 1.9 (0.0-4.0) % Baso % (Auto) 0.8 (0.0-2.0) % Neut # 10.4 H (1.8-7.0) K/uL Lymph # 1.0 (1.0-4.3) K/uL [place] # 1.1 H (0.0-0.8) K/uL Eos # 0.2 (0.0-0.7) K/uL Baso # 0.1 (0.0-0.2) K/uL Neutrophils % (Manual) 77 H (50-75) % Lymphocytes % (Manual) 9 L (20-40) % Reactive Lymphs % 2 H (0-0) % Monocytes % (Manual) 10 (0-10) % Eosinophils % (Manual) 2 (0-4) % Platelet Estimate Normal (NORMAL) Hypochromasia (manual) Slight Anisocytosis (manual) Moderate Sodium 133 (132-148) mmol/L Potassium 3.6 (3.6-5.2) mmol/L Chloride 101 (98-107) mmol/L Carbon Dioxide 24 (22-30) mmol/L Anion Gap 12 (10-20) BUN < 2 L (7-17) mg/dL Creatinine 0.4 L (0.7-1.2) mg/dL Est GFR ( Amer) > 60 Est GFR (Non-Af Amer) > 60 Random Glucose 61 L (65-105) mg/dL Calcium 7.4 L (8.6-10.4) mg/dl Magnesium 1.3 L (1.6-2.3) mg/dL Laboratory Results - last 24 hr 08/12/17 08/12/17 09:28 09:28 WBC 12.9 H RBC 3.94 Hgb 10.1 L Hct 33.2 L MCV 84.3 MCH 25.7 L MCHC 30.4 L RDW 19.5 H Plt Count 204 MPV 8.1 Neut % (Auto) 80.8 H Lymph % (Auto) 7.9 L [place] % (Auto) 8.6 Eos % (Auto) 1.9 Baso % (Auto) 0.8 Neut # 10.4 H Lymph # 1.0 [place] # 1.1 H Eos # 0.2 Baso # 0.1 Neutrophils % (Manual) 77 H Lymphocytes % (Manual) 9 L Reactive Lymphs % 2 H Monocytes % (Manual) 10 Eosinophils % (Manual) 2 Platelet Estimate Normal Hypochromasia (manual) Slight Anisocytosis (manual) Moderate Sodium 133 Potassium 3.6 Chloride 101 Carbon Dioxide 24 Anion Gap 12 BUN < 2 L Creatinine 0.4 L Est GFR ( Amer) > 60 Est GFR (Non-Af Amer) > 60 Random Glucose 61 L Calcium 7.4 L Magnesium 1.3 L Review of Systems - Review of Systems All systems: reviewed and no additional remarkable complaints except - Cardiovascular Cardiovascular: Chest Pain Critical Care Progress Note - Nutrition Nutrition: Nutrition Category Date Time Status Heart Healthy Diet [DIET] Diets 08/11/17 Dinner Active Assessment/Plan (1) Pericardial effusion with cardiac tamponade Assessment and plan: 36 years old female with no significant past medical history, admitted on with SOB and dx with very Large Pericardial effusion. She was taken to the OR today for a Pericardial window and is is in the ICU post Operation for critical care management. Neuro: alert and oriented x 3 Pulm: no acute issues, breathing spontaneously on room air CV: hemodynamically stable. Indomethacin for possible viral pericarditis which led to pericardial effusion. chest tubes in place and draining. Hem: no acute issues Renal: urine output wnl. will monitor Endo: no acute issues GI: heart healthy diet ID: no acute issues DVT proph - lovenox GI proph - not currently indicated Code status - full code Critical Care Time spent 35 minutes Multi-disciplinary rounds were performed with house staff, nursing, speech therapy, respiratory therapy, pharmacy and nutrition with integrated input from the primary team/attending and other consulting services. The documented time is cumulative and includes review of patient data/exams/labs/chart review and examination of the patient on rounds and throughout the day; time is exclusive of any procedures or teaching time. Current Visit: Yes Status: Acute
--- NOTE | 2017-08-12 17:15 | CP.PCM.PN ---
Subjective - Date & Time of Evaluation Date of Evaluation: 08/12/17 Time of Evaluation: 15:00 - Subjective Subjective: clinically same Objective - Vital Signs/Intake and Output Vital Signs (last 24 hours): Temp Pulse Resp BP Pulse Ox 98.1 F 99 H 23 105/67 96 08/12/17 12:00 08/12/17 16:00 08/12/17 16:00 08/12/17 15:53 08/12/17 15:08 Intake and Output: 08/12/17 08/12/17 06:59 18:59 Intake Total 1895 1597.5 Output Total 2050 700 Balance -155 897.5 - Medications Medications: Current Medications Diphenhydramine HCl (Benadryl) 25 mg PO Q8 PRN PRN Reason: Rash Last Admin: 08/11/17 22:22 Dose: 25 mg Enoxaparin Sodium (Lovenox) 40 mg SC DAILY [facility] Last Admin: 08/12/17 10:47 Dose: 40 mg Ceftriaxone Sodium 1 gm/ (Sodium Chloride) 100 mls @ 100 mls/hr IVPB DAILY [facility] Last Admin: 08/12/17 10:47 Dose: 100 mls/hr Lactated Ringer's (Lactated Ringer's) 1,000 mls @ 75 mls/hr IV .[id number] [facility] Last Admin: 08/12/17 17:10 Dose: 75 mls/hr Indomethacin (Indocin) 25 mg PO TID [facility] Last Admin: 08/12/17 14:41 Dose: 25 mg Morphine Sulfate/Sodium Chloride (Morphine Director Of Academic Support Monoject Barrel) 30 mg IV Q4H PRN; Protocol PRN Reason: Pain, moderate (4-7) Last Admin: 08/11/17 14:10 Dose: 30 mg Nicotine (Nicoderm Cq) 1 patch TD DAILY [facility] Last Admin: 08/12/17 13:26 Dose: 1 patch - Labs Labs: 08/12/17 09:28 08/12/17 09:28 PT 12.6 SECONDS (9.7-12.2) H 08/09/17 06:35 INR 1.1 08/09/17 06:35 APTT 35 SECONDS (21-34) H 08/09/17 06:35 - Constitutional Appears: Well - Head Exam Head Exam: ATRAUMATIC, NORMAL INSPECTION, NORMOCEPHALIC - Eye Exam Eye Exam: EOMI, Normal appearance, PERRL Pupil Exam: NORMAL ACCOMODATION, PERRL - ENT Exam ENT Exam: Mucous Membranes Moist, Normal Exam - Neck Exam Neck Exam: Full ROM, Normal Inspection. absent: Lymphadenopathy - Respiratory Exam Respiratory Exam: Clear to Ausculation Bilateral, NORMAL BREATHING PATTERN - Cardiovascular Exam Cardiovascular Exam: REGULAR RHYTHM, +S1, +S2. absent: Murmur - GI/Abdominal Exam GI & Abdominal Exam: Soft, Normal Bowel Sounds. absent: Tenderness - Rectal Exam Rectal Exam: Deferred - Extremities Exam Extremities Exam: Full ROM, Normal Capillary Refill, Normal Inspection. absent : Joint Swelling, Pedal Edema - Back Exam Back Exam: NORMAL INSPECTION Assessment and Plan (1) Chest pain Status: Acute (2) Pericardial effusion with cardiac tamponade Status: Acute (3) Abscess Status: Acute (4) Anemia Status: Acute (5) Bronchitis Status: Acute (6) Open wound Status: Acute - Assessment and Plan (Free Text) Plan: Patient examined. No chest pain or dyspnea present. Continue indomethacin and Motrin. Continue diphenhydramine. Continue supportive care.
--- NOTE | 2017-08-12 20:55 | CP.PCM.PN ---
Subjective - Date & Time of Evaluation Date of Evaluation: 08/12/17 Time of Evaluation: 08:15 - Subjective Subjective: Patient seen and evaluated denies chest pain and dyspnea s/p Pericardial window Pt seen and examine at bedside. No acute events overnight. Patient states that she had a bad dream and accidentally pulled out her IV last night. Denies any F/ C. Does report mild cough. No CP/SOB. Surgical site pain well controlled. No new complaints. CT in place to suction. 100cc of serosang during day yesterday, 50cc overnight. Physical Examination - Constitutional Appears: Well, Non-toxic, No Acute Distress - Head Exam Head Exam: ATRAUMATIC, NORMAL INSPECTION, NORMOCEPHALIC - Eye Exam Eye Exam: EOMI - ENT Exam ENT Exam: Mucous Membranes Moist - Respiratory Exam Respiratory Exam: NORMAL BREATHING PATTERN. absent: Accessory Muscle Use, Wheezes, Respiratory Distress Additional comments: mediastinal chest tube x2 in place. dressing clean, dry and intact - GI/Abdominal Exam GI & Abdominal Exam: Soft. absent: Guarding, Rigid, Tenderness - Extremities Exam Extremities Exam: Normal Inspection. absent: Calf Tenderness - Neurological Exam Neurological Exam: Alert, Awake, Oriented x3 - Psychiatric Exam Psychiatric exam: Normal Affect, Normal Mood - Skin Skin Exam: Dry, Intact, Normal Color, Warm Objective - Vital Signs/Intake and Output Vital Signs (last 24 hours): Temp Pulse Resp BP Pulse Ox 98.1 F 89 20 120/79 98 08/12/17 12:00 08/12/17 20:00 08/12/17 20:00 08/12/17 19:58 08/12/17 19:00 Intake and Output: 08/12/17 08/13/17 18:59 06:59 Intake Total 1597.5 550 Output Total 700 Balance 897.5 550 - Medications Medications: Current Medications Diphenhydramine HCl (Benadryl) 25 mg PO Q8 PRN PRN Reason: Rash Last Admin: 08/11/17 22:22 Dose: 25 mg Enoxaparin Sodium (Lovenox) 40 mg SC DAILY [facility] Last Admin: 08/12/17 10:47 Dose: 40 mg Ceftriaxone Sodium 1 gm/ (Sodium Chloride) 100 mls @ 100 mls/hr IVPB DAILY [facility] Last Admin: 08/12/17 10:47 Dose: 100 mls/hr Lactated Ringer's (Lactated Ringer's) 1,000 mls @ 75 mls/hr IV .[id number] [facility] Last Admin: 08/12/17 17:10 Dose: 75 mls/hr Indomethacin (Indocin) 25 mg PO TID [facility] Last Admin: 08/12/17 18:56 Dose: 25 mg Morphine Sulfate/Sodium Chloride (Morphine Bisque Kiln Drawer Monoject Barrel) 30 mg IV Q4H PRN; Protocol PRN Reason: Pain, moderate (4-7) Last Admin: 08/11/17 14:10 Dose: 30 mg Nicotine (Nicoderm Cq) 1 patch TD DAILY [facility] Last Admin: 08/12/17 13:26 Dose: 1 patch - Labs Labs: 08/12/17 09:28 08/12/17 09:28 PT 12.6 SECONDS (9.7-12.2) H 08/09/17 06:35 INR 1.1 08/09/17 06:35 APTT 35 SECONDS (21-34) H 08/09/17 06:35 Assessment and Plan - Assessment and Plan (Free Text) Assessment: 36yo F with pericardial effusion. S/p Pericardial window 08/10 - Continue chest tube to suction. Monitor output - Strict I&Os - f/u pericardial fluid analysis - Continue pain management - Physical therapy eval and treat - tolerating diet Further recs as per Dr. Bowers
--- NOTE | 2017-08-12 23:14 | CP.PCM.PN ---
Subjective - Date & Time of Evaluation Date of Evaluation: 08/11/17 Time of Evaluation: 09:00 - Subjective Subjective: Patient seen and evaluated S/P pericardial window stable - Physical Exam Head: Positive for: Atraumatic, Normocephalic Pupils: Positive for: PERRL Extroacular Muscles: Positive for: EOMI Conjunctiva: Positive for: Normal Mouth: Positive for: Moist Mucous Membranes Respiratory/Chest: Positive for: Clear to Auscultation, Good Air Exchange Cardiovascular: Positive for: Tachycardic Abdomen: Positive for: Normal Bowel Sounds. Negative for: Tenderness, Distention Neurological: Positive for: GCS=15, CN II-XII Intact, Speech Normal Psychiatric: Positive for: Alert, Oriented x 3 Objective - Vital Signs/Intake and Output Vital Signs (last 24 hours): Temp Pulse Resp BP Pulse Ox 98.1 F 101 H 22 120/76 97 08/12/17 12:00 08/12/17 22:07 08/12/17 22:07 08/12/17 22:07 08/12/17 21:26 Intake and Output: 08/12/17 08/13/17 18:59 06:59 Intake Total 1597.5 900 Output Total 700 300 Balance 897.5 600 - Medications Medications: Current Medications Diphenhydramine HCl (Benadryl) 25 mg PO Q8 PRN PRN Reason: Rash Last Admin: 08/12/17 21:25 Dose: 25 mg Enoxaparin Sodium (Lovenox) 40 mg SC DAILY [facility] Last Admin: 08/12/17 10:47 Dose: 40 mg Ceftriaxone Sodium 1 gm/ (Sodium Chloride) 100 mls @ 100 mls/hr IVPB DAILY [facility] Last Admin: 08/12/17 10:47 Dose: 100 mls/hr Lactated Ringer's (Lactated Ringer's) 1,000 mls @ 75 mls/hr IV .[id number] [facility] Last Admin: 08/12/17 20:00 Dose: Not Given Indomethacin (Indocin) 25 mg PO TID [facility] Last Admin: 08/12/17 18:56 Dose: 25 mg Morphine Sulfate/Sodium Chloride (Morphine Accounting Administrative Assistant Monoject Barrel) 30 mg IV Q4H PRN; Protocol PRN Reason: Pain, moderate (4-7) Last Admin: 08/11/17 14:10 Dose: 30 mg Nicotine (Nicoderm Cq) 1 patch TD DAILY [facility] Last Admin: 08/12/17 13:26 Dose: 1 patch - Labs Labs: 08/12/17 09:28 08/12/17 09:28 PT 12.6 SECONDS (9.7-12.2) H 08/09/17 06:35 INR 1.1 08/09/17 06:35 APTT 35 SECONDS (21-34) H 08/09/17 06:35 Assessment and Plan - Assessment and Plan (Free Text) Assessment: 36 years old female with no significant past medical history, admitted on with SOB and dx with very Large Pericardial effusion. She was taken to the OR today for a Pericardial window and is is in the ICU post Operation for critical care management. Neuro: alert and oriented x 3 Pulm: no acute issues, breathing spontaneously on room air CV: hemodynamically stable. Indomethacin for possible viral pericarditis which led to pericardial effusion. drains in place. Hem: no acute issues Renal: urine output wnl. will monitor Endo: no acute issues GI: heart healthy diet ID: no acute issues DVT proph - lovenox GI proph - not currently indicated Code status - full code
--- NOTE | 2017-08-12 23:15 | CP.PCM.PN ---
Subjective - Date & Time of Evaluation Date of Evaluation: 08/10/17 Time of Evaluation: 06:25 - Subjective Subjective: Patient seen and evaluated Comfortable No new events For Pericardial window today Physical Examination - Constitutional Appears: No Acute Distress - Head Exam Head Exam: ATRAUMATIC, NORMOCEPHALIC - Eye Exam Eye Exam: EOMI, Normal appearance - ENT Exam ENT Exam: Mucous Membranes Moist - Respiratory Exam Respiratory Exam: NORMAL BREATHING PATTERN - Cardiovascular Exam Cardiovascular Exam: REGULAR RHYTHM, Rubs - GI/Abdominal Exam GI & Abdominal Exam: Soft. absent: Tenderness - Neurological Exam Neurological Exam: Alert, Awake, Oriented x3 - Psychiatric Exam Psychiatric exam: Normal Affect, Normal Mood - Skin Skin Exam: Dry, Intact, Normal Color, Warm Objective - Vital Signs/Intake and Output Vital Signs (last 24 hours): Temp Pulse Resp BP Pulse Ox 98.1 F 101 H 22 120/76 97 08/12/17 12:00 08/12/17 22:07 08/12/17 22:07 08/12/17 22:07 08/12/17 21:26 Intake and Output: 08/12/17 08/13/17 18:59 06:59 Intake Total 1597.5 900 Output Total 700 300 Balance 897.5 600 - Medications Medications: Current Medications Diphenhydramine HCl (Benadryl) 25 mg PO Q8 PRN PRN Reason: Rash Last Admin: 08/12/17 21:25 Dose: 25 mg Enoxaparin Sodium (Lovenox) 40 mg SC DAILY [facility] Last Admin: 08/12/17 10:47 Dose: 40 mg Ceftriaxone Sodium 1 gm/ (Sodium Chloride) 100 mls @ 100 mls/hr IVPB DAILY [facility] Last Admin: 08/12/17 10:47 Dose: 100 mls/hr Lactated Ringer's (Lactated Ringer's) 1,000 mls @ 75 mls/hr IV .[id number] [facility] Last Admin: 08/12/17 20:00 Dose: Not Given Indomethacin (Indocin) 25 mg PO TID [facility] Last Admin: 08/12/17 18:56 Dose: 25 mg Morphine Sulfate/Sodium Chloride (Morphine Ham Trimmer Monoject Barrel) 30 mg IV Q4H PRN; Protocol PRN Reason: Pain, moderate (4-7) Last Admin: 08/11/17 14:10 Dose: 30 mg Nicotine (Nicoderm Cq) 1 patch TD DAILY [facility] Last Admin: 08/12/17 13:26 Dose: 1 patch - Labs Labs: 08/12/17 09:28 08/12/17 09:28 PT 12.6 SECONDS (9.7-12.2) H 08/09/17 06:35 INR 1.1 08/09/17 06:35 APTT 35 SECONDS (21-34) H 08/09/17 06:35 Assessment and Plan - Assessment and Plan (Free Text) Assessment: 36 F with no significant PMH admitted for cough, and chest pains Chest pain not related to exertion CT chest revealed large pericardial effusion ECHO: Large pericardial effusion No RV collapse No hemodynamic compromise For pericardial window today
--- NOTE | 2017-08-12 23:17 | CP.PCM.PN ---
Subjective - Date & Time of Evaluation Date of Evaluation: 08/09/17 Time of Evaluation: 06:00 - Subjective Subjective: Patient seen and evaluated Denies dyspnea and chest pain For pericardial window Large pericardial effusion Physical Examination - Constitutional Appears: No Acute Distress - Head Exam Head Exam: ATRAUMATIC, NORMOCEPHALIC - Eye Exam Eye Exam: EOMI, Normal appearance - ENT Exam ENT Exam: Mucous Membranes Moist - Respiratory Exam Respiratory Exam: NORMAL BREATHING PATTERN - Cardiovascular Exam Cardiovascular Exam: REGULAR RHYTHM, Rubs - GI/Abdominal Exam GI & Abdominal Exam: Soft. absent: Tenderness - Neurological Exam Neurological Exam: Alert, Awake, Oriented x3 - Psychiatric Exam Psychiatric exam: Normal Affect, Normal Mood - Skin Skin Exam: Dry, Intact, Normal Color, Warm Objective - Vital Signs/Intake and Output Vital Signs (last 24 hours): Temp Pulse Resp BP Pulse Ox 98.1 F 101 H 22 120/76 97 08/12/17 12:00 08/12/17 22:07 08/12/17 22:07 08/12/17 22:07 08/12/17 21:26 Intake and Output: 08/12/17 08/13/17 18:59 06:59 Intake Total 1597.5 900 Output Total 700 300 Balance 897.5 600 - Medications Medications: Current Medications Diphenhydramine HCl (Benadryl) 25 mg PO Q8 PRN PRN Reason: Rash Last Admin: 08/12/17 21:25 Dose: 25 mg Enoxaparin Sodium (Lovenox) 40 mg SC DAILY [facility] Last Admin: 08/12/17 10:47 Dose: 40 mg Ceftriaxone Sodium 1 gm/ (Sodium Chloride) 100 mls @ 100 mls/hr IVPB DAILY [facility] Last Admin: 08/12/17 10:47 Dose: 100 mls/hr Lactated Ringer's (Lactated Ringer's) 1,000 mls @ 75 mls/hr IV .[id number] [facility] Last Admin: 08/12/17 20:00 Dose: Not Given Indomethacin (Indocin) 25 mg PO TID [facility] Last Admin: 08/12/17 18:56 Dose: 25 mg Morphine Sulfate/Sodium Chloride (Morphine Tire Cord Weaver Monoject Barrel) 30 mg IV Q4H PRN; Protocol PRN Reason: Pain, moderate (4-7) Last Admin: 08/11/17 14:10 Dose: 30 mg Nicotine (Nicoderm Cq) 1 patch TD DAILY [facility] Last Admin: 08/12/17 13:26 Dose: 1 patch - Labs Labs: 08/12/17 09:28 08/12/17 09:28 PT 12.6 SECONDS (9.7-12.2) H 08/09/17 06:35 INR 1.1 08/09/17 06:35 APTT 35 SECONDS (21-34) H 08/09/17 06:35 Assessment and Plan - Assessment and Plan (Free Text) Assessment: 36 F with no significant PMH admitted for cough, and chest pains Chest pain not related to exertion CT chest revealed large pericardial effusion ECHO: Large pericardial effusion No RV collapse No hemodynamic compromise Needs pericardial window and fluid analysis Thoracic surgery consult requested
[2017-08-12] MEDS: Morphine Monoject Barrel PCA 1mg/ml IV PRN (23:45)
--- NOTE | 2017-08-13 07:00 | CP.PCM.PN ---
Subjective - Date & Time of Evaluation Date of Evaluation: 08/13/17 Time of Evaluation: 06:50 - Subjective Subjective: Around 5am patient on her own removed the connection of her chest tube to pleural-vac, for the purpose of leaving AMA. Patient initially expressed didn't like the feeling of being in the hospital/icu. Patient later admitted she could stay in regular room but not in icu room and she wants to possibly breath outside air and smoke while she is being transferred. Beatrice herzog was called and security had to come twice due to patients initial aggressive behaviour. Patient was evaluated by surgery resident, may remove the pleural tubes later in the day if she is now willing to stay, peural-vac was changed. CXR done continues to show fluid on the right chest, unclear if pneumothorax as well. Patient later agreed to be transferred to [facility] out of the icu, increase nicoderm to 21mg/d, ativan 1mg iv, haldol 1mg iv. Currently security monitoring her 1:1, surgery team aware of the events. Objective - Vital Signs/Intake and Output Vital Signs (last 24 hours): Temp Pulse Resp BP Pulse Ox 98.1 F 96 H 21 102/73 97 08/12/17 12:00 08/13/17 04:00 08/13/17 03:58 08/13/17 03:58 08/13/17 04:00 Intake and Output: 08/12/17 08/13/17 18:59 06:59 Intake Total 1597.5 1850 Output Total 700 1120 Balance 897.5 730 - Medications Medications: Current Medications Diphenhydramine HCl (Benadryl) 25 mg PO Q8 PRN PRN Reason: Rash Last Admin: 08/12/17 21:25 Dose: 25 mg Enoxaparin Sodium (Lovenox) 40 mg SC DAILY [facility] Last Admin: 08/12/17 10:47 Dose: 40 mg Ceftriaxone Sodium 1 gm/ (Sodium Chloride) 100 mls @ 100 mls/hr IVPB [facility]ILY [facility] Last Admin: 08/12/17 10:47 Dose: 100 mls/hr Lactated Ringer's (Lactated Ringer's) 1,000 mls @ 75 mls/hr IV .[id number] [facility] Last Admin: 08/12/17 20:00 Dose: Not Given Indomethacin (Indocin) 25 mg PO TID [facility] Last Admin: 12/03/17 18:56 Dose: 25 mg Morphine Sulfate/Sodium Chloride (Morphine Mercerizing Range Feeder Monoject Barrel) 30 mg IV Q4H PRN; Protocol PRN Reason: Pain, moderate (4-7) Last Admin: 08/11/17 14:10 Dose: 30 mg Nicotine (Nicoderm Cq) 1 patch TD DAILY [facility] - Labs Labs: 08/12/17 09:28 08/12/17 09:28 PT 12.6 SECONDS (9.7-12.2) H 08/09/17 06:35 INR 1.1 08/09/17 06:35 APTT 35 SECONDS (21-34) H 08/09/17 06:35
--- NOTE | 2017-08-13 08:54 | RAD ---
HISTORY: r/o pneumothorax COMPARISON: Portable chest 08/12/2017. FINDINGS: LUNGS: Pericardial drains unchanged in position. Cardiac silhouette stable in appearance overall. No pulmonary derangement. Bilateral pleural effusions persist greater the right than left sides though they appear mild in overall volume. Underlying airspace disease not excluded bilaterally, particularly at the left base. No pneumothorax bilaterally. Delete OSSEOUS STRUCTURES: No significant abnormalities. VISUALIZED UPPER ABDOMEN: Normal. OTHER FINDINGS: None. IMPRESSION: Stable pericardial drain placement with persistent bilateral pleural effusions and potential underlying airspace disease, particularly at the left base. Cardiac silhouette stable. No pulmonary vascular derangement identified.
--- NOTE | 2017-08-13 08:59 | CP.PCM.PN ---
Subjective - Date & Time of Evaluation Date of Evaluation: 08/13/17 Time of Evaluation: 06:55 - Subjective Subjective: CT Sx: Dr Bowers Pt S&E in ICU this morning. Pt was dressed in regular clothes and placing her CT into a plastic bag when we entered the room stating "I'm going to [place] for breakfast". Encouraged pt to sit down and allow us to remove the tubes and she obliged. Tubes removed without difficulty. No SOB, chest pain, fevers or chills. After tube removal pt immediately got up and attempted to leave. Pt agreed to remain for CXR, which demonstrated no sequelae from tube removal. Post-op incisions appear good. Objective - Vital Signs/Intake and Output Vital Signs (last 24 hours): Temp Pulse Resp BP Pulse Ox 98.1 F 96 H 21 102/73 97 08/12/17 12:00 08/13/17 04:00 08/13/17 03:58 08/13/17 03:58 08/13/17 04:00 Intake and Output: 08/13/17 08/13/17 06:59 18:59 Intake Total 1850 Output Total 1120 Balance 730 - Medications Medications: Current Medications Diphenhydramine HCl (Benadryl) 25 mg PO Q8 PRN PRN Reason: Rash Last Admin: 08/12/17 21:25 Dose: 25 mg Enoxaparin Sodium (Lovenox) 40 mg SC DAILY [facility] Last Admin: 08/12/17 10:47 Dose: 40 mg Ceftriaxone Sodium 1 gm/ (Sodium Chloride) 100 mls @ 100 mls/hr IVPB DAILY [facility] Last Admin: 08/12/17 10:47 Dose: 100 mls/hr Lactated Ringer's (Lactated Ringer's) 1,000 mls @ 75 mls/hr IV .[id number] [facility] Last Admin: 08/12/17 20:00 Dose: Not Given Indomethacin (Indocin) 25 mg PO TID [facility] Last Admin: 08/12/17 18:56 Dose: 25 mg Morphine Sulfate/Sodium Chloride (Morphine Curriculum Advisory Teacher Monoject Barrel) 30 mg IV Q4H PRN; Protocol PRN Reason: Pain, moderate (4-7) Last Admin: 08/11/17 14:10 Dose: 30 mg Nicotine (Nicoderm Cq) 1 patch TD DAILY [facility] - Labs Labs: 08/12/17 09:28 08/12/17 09:28 PT 12.6 SECONDS (9.7-12.2) H 08/09/17 06:35 INR 1.1 08/09/17 06:35 APTT 35 SECONDS (21-34) H 08/09/17 06:35 - Constitutional Appears: Non-toxic, No Acute Distress - ENT Exam ENT Exam: Mucous Membranes Moist - Respiratory Exam Respiratory Exam: absent: Accessory Muscle Use, Respiratory Distress - Cardiovascular Exam Cardiovascular Exam: REGULAR RHYTHM Additional comments: incisions c/d/i - GI/Abdominal Exam GI & Abdominal Exam: Soft. absent: Distended, Firm, Tenderness - Neurological Exam Neurological Exam: Alert, Awake, Oriented x3 - Psychiatric Exam Psychiatric exam: Normal Affect, Normal Mood - Skin Skin Exam: Normal Color, Warm Assessment and Plan - Assessment and Plan (Free Text) Assessment: 36F POD#3 s/p pericardial window Plan: tubes removed at bedside Psych consult given code-forrester CXR clear - pt clear for D/C from surgical standpoint return to ER on sunday for wound check d/w Dr Elissa Rausch, PGY3
--- NOTE | 2017-08-13 09:01 | RAD ---
HISTORY: s/p mediastinal CT removal COMPARISON: Portable chest 08/13/2017 5:30 a.m.. FINDINGS: LUNGS: Two pericardial drains appear to been removed with skin william remaining at the midline inferior chest upper abdomen. Bilateral pleural effusions persist with underlying atelectasis or infiltrates not excluded bilaterally at the bases. Left pleural effusion appears to have increased slightly. PLEURA: No pneumothorax bilaterally. CARDIOVASCULAR: Cardiac silhouette remains prominent appearing with borderline pulmonary venous congestion. No pneumothorax. OSSEOUS STRUCTURES: No significant abnormalities. VISUALIZED UPPER ABDOMEN: Normal. OTHER FINDINGS: None. IMPRESSION: Status post removal of pericardial drains with prominent cardiac silhouette remaining. Pulmonary venous congestion pattern is questioned though this is not definite. Bilateral pleural effusions have increased in the left and are stable at the right with underlying atelectasis or infiltrates not excluded both bases.
--- NOTE | 2017-08-13 10:30 | PCM.PSYCH ---
Initial Psychiatric Evaluation - Initial Psychiatric Evaluation Type of Admission: Voluntary Chief Complaint (in patient's own words): "I'm fine but I don't understand why you won't let me leave" History of Present Illness and Precipitating Events: Pt is 36 y/o female consulted for mental capacity. She admitted post-op for a pericardial window placement. Pt states that she lives with mother, boyfriend and 4 kids. 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 Currently the pt presents with disorganized speech and thinking. Mentally the pt is preoccupied and paranoid. Pt is oriented to person and situation. Pt is aware of the surgery she had. However the patient is not oriented to place and time because she stated that Heladio Hillman was the current president and that she was at [facility] in [place]. Pt was asked to provide the number of her boyfriend and she provided a number that was not in service. The pt was agitated during the interview and stated that she wanted to leave. Pt denies alcohol and drug use. However it is noted that she does smoke 1 bag of marijuana every day. Pt states that she smokes an unspecified amount of cigarettes a day for an unspecified amount of time. Spoke with the mother. Pt has no prior psychiatric history. Past MHX: Pt denies Current Medications: Active Medications Generic Name Dose Route Start Last Admin Trade Name Freq PRN Reason Stop Dose Admin Diphenhydramine HCl 25 mg 08/08/17 20:29 08/12/17 21:25 Benadryl PO 25 mg Q8 PRN Administration Rash Enoxaparin Sodium 40 mg 08/11/17 22:15 08/12/17 10:47 Lovenox SC 40 mg DAILY [facility] Administration Ceftriaxone Sodium 1 gm/ 100 mls @ 100 mls/hr 08/11/17 10:00 08/12/17 10:47 Sodium Chloride IVPB 100 mls/hr DAILY [facility] Administration Lactated Ringer's 1,000 mls @ 75 mls/hr 08/11/17 17:20 08/12/17 20:00 Lactated Ringer's IV Not Given .[id number] [facility] Indomethacin 25 mg 08/11/17 14:00 08/12/17 18:56 Indocin PO 25 mg TID [facility] Administration Nicotine 1 patch 08/13/17 10:00 Nicoderm Cq TD DAILY [facility] Past Psychiatric History - Past Psychiatric History Previous Treatment History: None Pertinent Medical Hx (Current Medical&Sleep Prob, Allergies): Allergies Allergy/AdvReac Type Severity Reaction Status Date / Time No Known Allergies Allergy Verified 08/07/17 19:14 No Known Home Med 08/07/17 Review of Systems - Review of Systems Systems not reviewed;Unavailable: Uncooperative All systems: reviewed and no additional remarkable complaints except - Neurological Neurological: UNREMARKABLE - Psychiatric Psychiatric: Anxiety, Confusion, Difficulty Concentrating, Irritability, Paranoia Mental Status Examination - Personal Presentation Personal Presentation: Looks stated age - Affect Affect: Broad - Motor Activity Motor Activity: Psychomotor Agitation - Reliability in Providing Information Reliability in Providing Information: Poor, due to alteration in thoughts, Poor , due to altered mood - Speech Speech: Disorganized, Tangential - Mood Mood: Anxious - Formal Thought Process Formal Thought Process: Delusions, Paranoia, Loosening of associations - Hallucinations/Delusions Delusions: Persecution - Obsessions/Compulsions Obsessions: No Compulsions: No - Cognitive Functions Orientation: Person, Situation Sensorium: Alert Attention/Concentration: Easily distracted Abstract Thinking: [place] Judgement: Imparied, as evidence by: Poor judgement, Imparied, as evidence by: Lack of insight into illness - Risk Risk: Diminished functioning - Strength & Assets Inventory Strength & Assets Inventory: Family support DSM 5 DX - DSM 5 DSM 5 Diagnosis: Delirium r/o Acute psychosis - Recommended/Plan of Treatment Treatment Recommendations and Plan of Treatment: Psychoeducation Supportive therapy, ndividual therapy Haldol 5 mg by mouth twice a day cogentin 1 mg po bid Trazodone 50 mg by mouth daily at bedtime Pt on 1:1 - Smoking Cessation Smoking Cessation Initiated: No
--- NOTE | 2017-08-13 10:40 | CP.PCM.PN ---
Subjective - Date & Time of Evaluation Date of Evaluation: 08/13/17 Time of Evaluation: 10:30 - Subjective Subjective: ELECTRICAL ENGINEERING TECHNOLOGIST NOTES pt see n today, awake, alert, oriented to person, disoriented , wants to leave states " to give papers to her work place " seen by psychiatrist Dr. Waters , s/p POD#3- pericardial window CT removed this am repeat CXR - Status post removal of pericardial drains with prominent cardiac silhouette remaining. Pulmonary venous congestion pattern is questioned though this is not definite. Bilateral pleural effusions have increased in the left and are stable at the right with underlying atelectasis or infiltrates not excluded both bases. plan will place patient on 1:[address] head - hypomagnesia - 1.3 yesterday , will repeat bmp further management as per Dr. Claire aldana and Dr. Waters Objective - Vital Signs/Intake and Output Vital Signs (last 24 hours): Temp Pulse Resp BP Pulse Ox 98.1 F 96 H 21 102/73 97 08/12/17 12:00 08/13/17 04:00 08/13/17 03:58 08/13/17 03:58 08/13/17 04:00 Intake and Output: 08/13/17 08/13/17 06:59 18:59 Intake Total 1850 Output Total 1120 Balance 730 - Medications Medications: Current Medications Diphenhydramine HCl (Benadryl) 25 mg PO Q8 PRN PRN Reason: Rash Last Admin: 08/12/17 21:25 Dose: 25 mg Diphenhydramine HCl (Benadryl) 50 mg PO Q6 PRN PRN Reason: Extra Pyramidal Symptoms Diphenhydramine HCl (Benadryl) 50 mg IM Q6 PRN PRN Reason: Agitation Enoxaparin Sodium (Lovenox) 40 mg SC DAILY [facility] Last Admin: 08/12/17 10:47 Dose: 40 mg Haloperidol (Haldol) 5 mg PO Q8 PRN PRN Reason: Moderate Agitation Haloperidol Lactate (Haldol) 5 mg IM Q6 PRN PRN Reason: Agitation Ceftriaxone Sodium 1 gm/ (Sodium Chloride) 100 mls @ 100 mls/hr IVPB DAILY [facility] Last Admin: 08/12/17 10:47 Dose: 100 mls/hr Lactated Ringer's (Lactated Ringer's) 1,000 mls @ 75 mls/hr IV .[id number] [facility] Last Admin: 08/12/17 20:00 Dose: Not Given Indomethacin (Indocin) 25 mg PO TID [facility] Last Admin: 08/12/17 18:56 Dose: 25 mg Lorazepam (Ativan) 1 mg PO Q8H PRN PRN Reason: Severe Agitation Lorazepam (Ativan) 1 mg IM Q6 [facility] Nicotine (Nicoderm Cq) 1 patch TD DAILY [facility] - Labs Labs: 08/12/17 09:28 08/12/17 09:28 PT 12.6 SECONDS (9.7-12.2) H 08/09/17 06:35 INR 1.1 08/09/17 06:35 APTT 35 SECONDS (21-34) H 08/09/17 06:35
--- NOTE | 2017-08-13 11:44 | CT ---
PROCEDURE: CT HEAD WITHOUT CONTRAST. HISTORY: AMS COMPARISON: None available. TECHNIQUE: Axial computed tomography images were obtained through the head/brain without intravenous contrast. Radiation dose: Total exam DLP = 1716.17 mGy-cm. This CT exam was performed using one or more of the following dose reduction techniques: Automated exposure control, adjustment of the mA and/or kV according to patient size, and/or use of iterative reconstruction technique. FINDINGS: HEMORRHAGE: No intracranial hemorrhage. BRAIN: Normal herzog-white matter differentiation and density are appreciated throughout the cerebrum and cerebellum with the brainstem appearing unremarkable as well. There is no mass effect. There is no suspicious extra-axial fluid collection in the midline brain anatomy appears diffusely unremarkable. VENTRICLES: Unremarkable. No hydrocephalus. CALVARIUM: Unremarkable. PARANASAL SINUSES: Unremarkable as visualized. No significant inflammatory changes. MASTOID AIR CELLS: Unremarkable as visualized. No inflammatory changes. OTHER FINDINGS: None. IMPRESSION: Unremarkable unenhanced CT of the Head. Follow-up CT or MRI may be considered as clinically warranted.
[2017-08-13] MEDS: Lactated Ringer's 1,000 ML IV SCH ×2 (12:10→23:05)
[2017-08-13] MEDS: Enoxaparin 40 mg Syringe SC SCH (12:10)
--- NOTE | 2017-08-13 17:02 | CP.PCM.PCO ---
Physician Communication Note - Physician Communication Note Physician Communication Note: Daily CXR.Pericardial effusion should resolve spontaneously thru the window
--- NOTE | 2017-08-13 17:14 | RAD ---
HISTORY: Pericardial Effusion COMPARISON: Chest x-ray performed 08/13/17 TECHNIQUE: Chest, one view. FINDINGS: LUNGS: Bilateral lower lobe consolidations and pleural effusions. No definite pneumothorax. CARDIOVASCULAR: Borderline cardiomegaly. OSSEOUS STRUCTURES: No acute osseous abnormality is detected. VISUALIZED UPPER ABDOMEN: Unremarkable. OTHER FINDINGS: None. IMPRESSION: Bilateral lower lobe consolidations and pleural effusions. Borderline cardiomegaly.
--- NOTE | 2017-08-13 19:36 | CP.PCM.PN ---
Subjective - Date & Time of Evaluation Date of Evaluation: 08/13/17 Time of Evaluation: 09:00 - Subjective Subjective: clinically same Objective - Vital Signs/Intake and Output Vital Signs (last 24 hours): Temp Pulse Resp BP Pulse Ox 97.4 F L 120 H 22 113/76 97 08/13/17 08:00 08/13/17 08:00 08/13/17 08:00 08/13/17 08:00 08/13/17 08:00 - Medications Medications: Current Medications Diphenhydramine HCl (Benadryl) 25 mg PO Q8 PRN PRN Reason: Rash Last Admin: 08/12/17 21:25 Dose: 25 mg Diphenhydramine HCl (Benadryl) 50 mg PO Q6 PRN PRN Reason: Extra Pyramidal Symptoms Last Admin: 08/13/17 17:37 Dose: 50 mg Diphenhydramine HCl (Benadryl) 50 mg IM Q6 PRN PRN Reason: Agitation Enoxaparin Sodium (Lovenox) 40 mg SC DAILY [facility] Last Admin: 08/13/17 12:10 Dose: Not Given Haloperidol (Haldol) 5 mg PO Q8 PRN PRN Reason: Moderate Agitation Haloperidol Lactate (Haldol) 5 mg IM Q6 PRN PRN Reason: MODERATE AGITATION Last Admin: 08/13/17 11:05 Dose: 5 mg Ceftriaxone Sodium 1 gm/ (Sodium Chloride) 100 mls @ 100 mls/hr IVPB DAILY [facility] Last Admin: 08/13/17 12:10 Dose: Not Given Lactated Ringer's (Lactated Ringer's) 1,000 mls @ 75 mls/hr IV .[id number] [facility] Last Admin: 08/13/17 12:10 Dose: Not Given Indomethacin (Indocin) 25 mg PO TID [facility] Last Admin: 08/13/17 18:56 Dose: Not Given Lorazepam (Ativan) 1 mg PO Q8H PRN PRN Reason: Severe Agitation Last Admin: 08/13/17 17:37 Dose: 1 mg Lorazepam (Ativan) 1 mg IM Q6 [facility] Last Admin: 08/13/17 18:56 Dose: 1 mg Nicotine (Nicoderm Cq) 1 patch TD DAILY [facility] Last Admin: 08/13/17 12:10 Dose: Not Given - Labs Labs: 08/12/17 09:28 08/12/17 09:28 PT 12.6 SECONDS (9.7-12.2) H 08/09/17 06:35 INR 1.1 08/09/17 06:35 APTT 35 SECONDS (21-34) H 08/09/17 06:35 Assessment and Plan (1) Chest pain Status: Acute (2) Pericardial effusion with cardiac tamponade Status: Acute (3) Abscess Status: Acute (4) Anemia Status: Acute (5) Bronchitis Status: Acute (6) Open wound Status: Acute
[2017-08-14] MEDS: DiphenhydrAMINE 50 mg/ml Inj IM PRN ×2 (03:00→10:36)
--- NOTE | 2017-08-14 06:26 | CARD ---
APPROVED REPORT EXAM: Two-dimensional echocardiogram Other Information Quality : LimitedRhythm : INDICATION Pericardial Effusion LEFT VENTRICLE The left ventricle is normal size. There is normal left ventricular wall thickness. Left ventricle systolic function is normal. The Ejection Fraction is 50-55%. There is normal LV segmental wall motion. RIGHT VENTRICLE The right ventricle is normal size. There is normal right ventricular wall thickness. The right ventricular systolic function is normal. ATRIA The left atrium size is normal. The right atrium size is normal. The interatrial septum is intact with no evidence for an atrial septal defect. AORTIC VALVE The aortic valve is normal in structure. No aortic regurgitation is present. There is no aortic valvular stenosis. MITRAL VALVE The mitral valve is normal in structure. There is no evidence of mitral valve prolapse. There is no mitral valve stenosis. There is no mitral valve regurgitation noted. TRICUSPID VALVE The tricuspid valve is normal in structure. There is mild tricuspid regurgitation. Right ventricular systolic pressure is estimated at less than 30 mmHg. There is no pulmonary hypertension. PULMONIC VALVE The pulmonic valve is not well visualized. There is no pulmonic valvular regurgitation. GREAT VESSELS The aortic root is normal in size. PERICARDIAL EFFUSION There is a large loculated posterior pericardial effusion. There is no evidence of cardiac tamponade. A large mass is seen in the posterior pericardial space which could represent hematoma. <Conclusion> Left ventricle systolic function is normal. The Ejection Fraction is 50-55%. No aortic regurgitation is present. There is no mitral valve regurgitation noted. There is mild tricuspid regurgitation. There is no pulmonary hypertension. There is no pulmonic valvular regurgitation.
--- NOTE | 2017-08-14 09:07 | RAD ---
HISTORY: interval changes. pericardial effusion. COMPARISON: 08/13/2017. FINDINGS: LUNGS: Since the prior examination, there has been no significant interval change in consolidation in the right lateral lower lobe and larger consolidation in the left lower lobe. PLEURA: No change in small right and moderate left pleural effusion. No pneumothorax apparent. CARDIOVASCULAR: The cardiomediastinal silhouette is stable. OSSEOUS STRUCTURES: No significant abnormalities. VISUALIZED UPPER ABDOMEN: Normal. OTHER FINDINGS: None. IMPRESSION: No significant interval change in bilateral lower lobe consolidations and pleural effusions, worse on the left.
--- NOTE | 2017-08-14 10:01 | CP.PCM.PN ---
Subjective - Date & Time of Evaluation Date of Evaluation: 08/14/17 Time of Evaluation: 08:20 - Subjective Subjective: CT surgery Progress note. Dr. Bowers Pt seen and examined at bedside. Patient with nursing staff and security in the room. patient in four point restraints at this time. Confused but does respond to questions somewhat appropriately. Denies any chest pain or shortness of breath. No F/C. No headaches. No Abd pain Objective - Vital Signs/Intake and Output Vital Signs (last 24 hours): Temp Pulse Resp BP Pulse Ox 98.6 F 123 H 20 136/94 H 95 08/14/17 07:00 08/14/17 07:00 08/14/17 07:00 08/14/17 07:00 08/14/17 07:00 - Medications Medications: Current Medications Benztropine Mesylate (Cogentin) 1 mg PO BID [facility] Diphenhydramine HCl (Benadryl) 25 mg PO Q8 PRN PRN Reason: Rash Last Admin: 08/12/17 21:25 Dose: 25 mg Diphenhydramine HCl (Benadryl) 50 mg PO Q6 PRN PRN Reason: Extra Pyramidal Symptoms Last Admin: 08/13/17 17:37 Dose: 50 mg Diphenhydramine HCl (Benadryl) 50 mg IM Q6 PRN PRN Reason: Agitation Enoxaparin Sodium (Lovenox) 40 mg SC DAILY [facility] Last Admin: 08/13/17 12:10 Dose: Not Given Haloperidol (Haldol) 5 mg PO Q8 PRN PRN Reason: Moderate Agitation Haloperidol (Haldol) 5 mg PO BID [facility] Haloperidol Lactate (Haldol) 5 mg IM Q6 PRN PRN Reason: MODERATE AGITATION Last Admin: 08/13/17 11:05 Dose: 5 mg Ceftriaxone Sodium 1 gm/ (Sodium Chloride) 100 mls @ 100 mls/hr IVPB DAILY [facility] Last Admin: 08/13/17 12:10 Dose: Not Given Lactated Ringer's (Lactated Ringer's) 1,000 mls @ 75 mls/hr IV .[id number] [facility] Last Admin: 08/13/17 23:05 Dose: Not Given Indomethacin (Indocin) 25 mg PO TID [facility] Last Admin: 08/13/17 18:56 Dose: Not Given Lorazepam (Ativan) 1 mg PO Q8H PRN PRN Reason: Severe Agitation Last Admin: 08/13/17 17:37 Dose: 1 mg Lorazepam (Ativan) 1 mg IM Q6 [facility] Last Admin: 08/14/17 06:12 Dose: 1 mg Nicotine (Nicoderm Cq) 1 patch TD DAILY [facility] Last Admin: 08/13/17 12:10 Dose: Not Given Trazodone HCl (Desyrel) 50 mg PO HS [facility] Last Admin: 08/13/17 23:05 Dose: Not Given - Labs Labs: 08/12/17 09:28 08/12/17 09:28 PT 12.6 SECONDS (9.7-12.2) H 08/09/17 06:35 INR 1.1 08/09/17 06:35 APTT 35 SECONDS (21-34) H 08/09/17 06:35 - Constitutional Appears: No Acute Distress, Agitated, Confused - Head Exam Head Exam: ATRAUMATIC, NORMAL INSPECTION, NORMOCEPHALIC - Eye Exam Eye Exam: EOMI - ENT Exam ENT Exam: Mucous Membranes Moist - Respiratory Exam Respiratory Exam: NORMAL BREATHING PATTERN. absent: Accessory Muscle Use, Respiratory Distress - GI/Abdominal Exam GI & Abdominal Exam: Soft. absent: Distended, Firm, Guarding, Rigid, Tenderness Additional comments: midline periepigastric incision intact with william. No drainage. skin margins well approximated - Extremities Exam Extremities Exam: Normal Inspection. absent: Calf Tenderness - Neurological Exam Neurological Exam: Altered, Awake. absent: Oriented x3 Assessment and Plan - Assessment and Plan (Free Text) Assessment: 36yo F POD4 s/p pericardial window, hospital course complicated with poss delirium - f/u AM CXR - f/u CT Chest as ordered - ECHO findings noted. No evidence of tamponade. Likely will slowly drain from the pericardial window Further recs as per Dr. Elissa Mock PGY1 surgery pager: [phone]
[2017-08-14 10:15] LABS: BASO # 0.1 K/uL (0.0-0.2); BASO % 0.6 % (0.0-2.0); EOS # 0.4 K/uL (0.0-0.7); HEMATOCRIT 34.2 % (34.0-47.0); LYMPH # 1.4 K/uL (1.0-4.3); LYMPH % 14.8 % (20.0-40.0); MEAN CELL VOLUME 82.7 fL (81.0-99.0); MEAN CORPUSCULAR HEMOGLOBIN 25.7 pg (27.0-31.0); MEAN PLATELET VOLUME 8.2 fL (7.2-11.7); MONO % 10.5 % (0.0-10.0); WHITE BLOOD COUNT 9.3 K/uL (4.8-10.8)
[2017-08-14 10:19] LABS: INR 1.1
[2017-08-14 10:22] LABS: CALCIUM 8.2 mg/dl (8.6-10.4); CARBON DIOXIDE 29 mmol/L (22-30); CHLORIDE 104 mmol/L (98-107); GFR AFRICAN-AMERICAN > 60; GLUCOSE,RANDOM 79 mg/dL (65-105); POTASSIUM 3.4 mmol/L (3.6-5.2); SODIUM 141 mmol/L (132-148); TOTAL PROTEIN 6.2 g/dL (6.3-8.3)
[2017-08-14 10:23] LABS: ALB/GLOB RATIO 1.1 (1.0-2.1); ALKALINE PHOSPHATASE 93 U/L (38-126); ALT/SGPT 43 U/L (9-52); AST/SGOT 44 U/L (14-36); BILIRUBIN,DIRECT 0.3 mg/dL (0.0-0.4); BILIRUBIN,TOTAL 0.6 mg/dL (0.2-1.3)
[2017-08-14] MEDS: Enoxaparin 40 mg Syringe SC SCH (11:00)
[2017-08-14 11:06] LABS: BLOOD UREA NITROGEN < 2 mg/dL (7-17)
--- NOTE | 2017-08-14 11:49 | CT ---
CT chest without IV contrast Indication: pericardial effusion. S/P pericardial window 08/10 Technique: Contiguous axial images were obtained through the chest without intravenous contrast enhancement. Sagittal and coronal reconstructions were generated and reviewed. This CT exam was performed using 1 or more of the falling dose reduction techniques: Automated exposure control, adjustment of the MAA and/or kV according to patient size, and/or use of iterative reconstruction technique. Radiation dose (DLP): 387.26 MGy-cm. Comparison: Chest x-ray performed 08/14/17, CTA chest performed 08/08/17 Findings: Visualized portions of the inferior thyroid gland appear unremarkable. The mediastinal and hilar vascular structures appear within normal limits. Heart size appears within normal limits. Small pericardial effusion. Pneumopericardium presumably due to recent intervention. Moderate-sized bilateral pleural effusions and associated consolidations. Scattered patchy ground-glass opacities bilaterally. No pneumothorax. No suspicious pulmonary nodules measuring greater than 5 mm. Subcutaneous emphysema. Small amount of intravascular gas is noted within the upper abdomen anteriorly. Limited visualization of the noncontrast upper abdomen appears grossly unremarkable. Surgical william noted within the anterior soft tissues midline. No acute osseous abnormality is detected. Impression: Small pericardial effusion. Pneumopericardium presumably due to recent intervention. Moderate-sized bilateral pleural effusions and associated consolidations. Scattered patchy ground-glass opacities bilaterally may be infectious or inflammatory. Subcutaneous emphysema. Small amount of intravascular gas is noted within the upper abdomen anteriorly.
--- NOTE | 2017-08-14 12:51 | CP.PCM.PN ---
Subjective - Date & Time of Evaluation Date of Evaluation: 08/14/17 Time of Evaluation: 10:40 - Subjective Subjective: patient sen today , awake, alert, confused , hallucination noted , very restless , climbing out of bed on !:1 Dr. Atwood on board will repeat cbc, bmp, mg, ammonia and follow the result pt for CT chest today pt agitated again , and hallucinating, combative, ativan given not effective Dr. Atwood aware, recommends additional dose of ativan 1 mg Objective - Vital Signs/Intake and Output Vital Signs (last 24 hours): Temp Pulse Resp BP Pulse Ox 98.0 F 94 H 20 131/81 95 08/14/17 10:36 08/14/17 10:36 08/14/17 07:00 08/14/17 10:36 08/14/17 07:00 - Medications Medications: Current Medications Benztropine Mesylate (Cogentin) 1 mg PO BID [facility] Diphenhydramine HCl (Benadryl) 25 mg PO Q8 PRN PRN Reason: Rash Last Admin: 08/12/17 21:25 Dose: 25 mg Diphenhydramine HCl (Benadryl) 50 mg PO Q6 PRN PRN Reason: Extra Pyramidal Symptoms Last Admin: 08/13/17 17:37 Dose: 50 mg Diphenhydramine HCl (Benadryl) 50 mg IM Q6 PRN PRN Reason: Agitation Last Admin: 08/14/17 10:36 Dose: 50 mg Enoxaparin Sodium (Lovenox) 40 mg SC DAILY [facility] Last Admin: 08/13/17 12:10 Dose: Not Given Haloperidol (Haldol) 5 mg PO Q8 PRN PRN Reason: Moderate Agitation Haloperidol (Haldol) 5 mg PO BID [facility] Haloperidol Lactate (Haldol) 5 mg IM Q6 PRN PRN Reason: MODERATE AGITATION Last Admin: 08/14/17 10:36 Dose: 5 mg Ceftriaxone Sodium 1 gm/ (Sodium Chloride) 100 mls @ 100 mls/hr IVPB DAILY [facility] Last Admin: 08/13/17 12:10 Dose: Not Given Lactated Ringer's (Lactated Ringer's) 1,000 mls @ 75 mls/hr IV .[id number] [facility] Last Admin: 08/13/17 23:05 Dose: Not Given Indomethacin (Indocin) 25 mg PO TID [facility] Last Admin: 08/13/17 18:56 Dose: Not Given Lorazepam (Ativan) 1 mg PO Q8H PRN PRN Reason: Severe Agitation Last Admin: 08/13/17 17:37 Dose: 1 mg Lorazepam (Ativan) 1 mg IM Q6 [facility] Last Admin: 08/14/17 12:37 Dose: 1 mg Lorazepam (Ativan) 1 mg IM ONCE ONE Stop: 08/14/17 12:50 Nicotine (Nicoderm Cq) 1 patch TD DAILY [facility] Last Admin: 08/13/17 12:10 Dose: Not Given Trazodone HCl (Desyrel) 50 mg PO HS [facility] Last Admin: 08/13/17 23:05 Dose: Not Given - Labs Labs: 08/14/17 09:59 08/14/17 09:59 PT 12.4 SECONDS (9.7-12.2) H 08/14/17 09:59 INR 1.1 08/14/17 09:59 APTT 32 SECONDS (21-34) 08/14/17 09:59
[2017-08-14] MEDS: Potassium Chloride 20 mEq ER Tab PO SCH (13:33)
[2017-08-14 14:04] LABS: MAGNESIUM 1.7 mg/dL (1.6-2.3)
--- NOTE | 2017-08-14 14:05 | CP.PCM.CON ---
History of Present Illness - History of Present Illness History of Present Illness: Reason for consultation: Pleural effusion Pt is a 36 y/o F with a PMHx of pericardial effusion s/p pericardial window. Chest x-ray on 08/14 - bilateral pleural effusions worse on the left. CT 08/14 - bilateral pleural effusions and associated consolidations and scattered patchy- ground glass opacities bilaterally. Patient was seen bedside. She is alert, but not oriented to time and place and combative. History and ROS were unable to be obtained. Per nursing, patient had admitted to alcohol abuse. Toxicology showed hx of opiate and marijuana use. Past Patient History - Past Medical History & Family History Past Medical History?: Yes - Past Social History Smoking Status: Current Some Days Smoker - CARDIAC Hx Cardiac Disorders: No - PULMONARY Other/Comment: PH NODES IN MY LUNGS - NEUROLOGICAL Hx Neurological Disorder: No - HEENT Hx HEENT Problems: No - RENAL Hx Chronic Kidney Disease: No - ENDOCRINE/METABOLIC Hx Endocrine Disorders: No - HEMATOLOGICAL/ONCOLOGICAL Hx Blood Disorders: No - INTEGUMENTARY Other/Comment: inner thighs it. chiness and discoloration - MUSCULOSKELETAL/RHEUMATOLOGICAL Hx Musculoskeletal Disorders: No Hx Falls: No - GASTROINTESTINAL Hx Gastrointestinal Disorders: No - GENITOURINARY/GYNECOLOGICAL Hx Genitourinary Disorders: No - PSYCHIATRIC Hx Substance Use: Yes (1 bag of marijuana /day) - SURGICAL HISTORY Hx Surgeries: Yes Hx Section: Yes (2014 1x) - ANESTHESIA Hx Anesthesia: Yes Hx Anesthesia Reactions: No Hx Malignant Hyperthermia: No Has any member of the family had a problem w/ anesthesia?: No Meds Allergies/Adverse Reactions: Allergies Allergy/AdvReac Type Severity Reaction Status Date / Time No Known Allergies Allergy Verified 08/07/17 19:14 - Medications Medications: Current Medications Benztropine Mesylate (Cogentin) 1 mg PO BID [facility] Diphenhydramine HCl (Benadryl) 25 mg PO Q8 PRN PRN Reason: Rash Last Admin: 08/12/17 21:25 Dose: 25 mg Diphenhydramine HCl (Benadryl) 50 mg PO Q6 PRN PRN Reason: Extra Pyramidal Symptoms Last Admin: 08/13/17 17:37 Dose: 50 mg Diphenhydramine HCl (Benadryl) 50 mg IM Q6 PRN PRN Reason: Agitation Last Admin: 08/14/17 10:36 Dose: 50 mg Enoxaparin Sodium (Lovenox) 40 mg SC DAILY [facility] Last Admin: 08/13/17 12:10 Dose: Not Given Haloperidol (Haldol) 5 mg PO Q8 PRN PRN Reason: Moderate Agitation Haloperidol (Haldol) 5 mg PO BID [facility] Haloperidol Lactate (Haldol) 5 mg IM Q6 PRN PRN Reason: MODERATE AGITATION Last Admin: 08/14/17 10:36 Dose: 5 mg Ceftriaxone Sodium 1 gm/ (Sodium Chloride) 100 mls @ 100 mls/hr IVPB DAILY [facility] Last Admin: 08/14/17 13:30 Dose: 100 mls/hr Lactated Ringer's (Lactated Ringer's) 1,000 mls @ 75 mls/hr IV .[id number] [facility] Last Admin: 08/13/17 23:05 Dose: Not Given Indomethacin (Indocin) 25 mg PO Q8H PRN PRN Reason: Pain, severe (8-10) Lorazepam (Ativan) 1 mg PO Q8H PRN PRN Reason: Severe Agitation Last Admin: 08/13/17 17:37 Dose: 1 mg Lorazepam (Ativan) 1 mg IM Q6 [facility] Last Admin: 08/14/17 12:37 Dose: 1 mg Nicotine (Nicoderm Cq) 1 patch TD DAILY [facility] Last Admin: 08/13/17 12:10 Dose: Not Given Potassium Chloride (K-Dur 20 Meq Er Tab) 40 meq PO DAILY [facility] Last Admin: 08/14/17 13:33 Dose: 40 meq Trazodone HCl (Desyrel) 50 mg PO HS [facility] Last Admin: 08/13/17 23:05 Dose: Not Given Physical Exam - Constitutional Appears: Confused - Head Exam Head Exam: ATRAUMATIC, NORMOCEPHALIC - ENT Exam ENT Exam: Mucous Membranes Moist - Neck Exam Neck exam: Positive for: Normal Inspection - Respiratory Exam Respiratory Exam: Decreased Breath Sounds - Cardiovascular Exam Cardiovascular Exam: REGULAR RHYTHM - GI/Abdominal Exam GI & Abdominal Exam: Normal Bowel Sounds, Soft Results - Vital Signs Recent Vital Signs: Last Vital Signs Temp 98.0 F 08/14/17 10:36 Pulse 125 H 08/14/17 13:30 Resp 20 08/14/17 12:52 BP 131/92 H 08/14/17 13:30 Pulse Ox 93 L 08/14/17 12:52 - Labs Result Diagrams: 08/14/17 09:59 08/14/17 09:59 Labs: Laboratory Results - last 24 hr 08/10/17 08/14/17 08/14/17 16:37 02:45 09:59 WBC 9.3 RBC 4.14 Hgb 10.6 L Hct 34.2 MCV 82.7 MCH 25.7 L MCHC 31.0 L RDW 20.0 H Plt Count 316 D MPV 8.2 Neut % (Auto) 70.1 Lymph % (Auto) 14.8 L [place] % (Auto) 10.5 H Eos % (Auto) 4.0 Baso % (Auto) 0.6 Neut # 6.5 Lymph # 1.4 [place] # 1.0 H Eos # 0.4 Baso # 0.1 PT INR APTT Sodium Potassium Chloride Carbon Dioxide Anion Gap BUN Creatinine Est GFR ( Amer) Est GFR (Non-Af Amer) Random Glucose Calcium Total Bilirubin Direct Bilirubin AST ALT Alkaline Phosphatase Ammonia Total Protein Albumin Globulin Albumin/Globulin Ratio Pleural Total Protein 5.4 Urine Opiates Screen Positive H Urine Methadone Screen Negative Ur Barbiturates Screen Negative Ur Phencyclidine Scrn Negative Ur Amphetamines Screen Negative U Benzodiazepines Scrn Negative U Oth Cocaine Metabols Negative U Cannabinoids Screen Positive H 08/14/17 08/14/17 08/14/17 09:59 09:59 09:59 WBC RBC Hgb Hct MCV MCH MCHC RDW Plt Count MPV Neut % (Auto) Lymph % (Auto) [place] % (Auto) Eos % (Auto) Baso % (Auto) Neut # Lymph # [place] # Eos # Baso # PT 12.4 H INR 1.1 APTT 32 Sodium 141 Potassium 3.4 L Chloride 104 Carbon Dioxide 29 Anion Gap 12 BUN < 2 L Creatinine 0.5 L Est GFR ( Amer) > 60 Est GFR (Non-Af Amer) > 60 Random Glucose 79 Calcium 8.2 L Total Bilirubin 0.6 Direct Bilirubin 0.3 AST 44 H D ALT 43 Alkaline Phosphatase 93 Ammonia 14 Total Protein 6.2 L Albumin 3.2 L Globulin 3.0 Albumin/Globulin Ratio 1.1 Pleural Total Protein Urine Opiates Screen Urine Methadone Screen Ur Barbiturates Screen Ur Phencyclidine Scrn Ur Amphetamines Screen U Benzodiazepines Scrn U Oth Cocaine Metabols U Cannabinoids Screen Assessment & Plan (1) Pleural effusion Status: Acute (2) Pericardial effusion with cardiac tamponade Status: Acute (3) Acute psychosis Status: Acute Comment: patient confused and agitated. patient transferred to intensive care uni And started on Precedex drip. Case discussed with psychiatry. IV fluids. Autoimmune workup for bilateral pleural effusion and pericardial effusion. Patient with history of EtOH abuse, rule out withdrawal/DTs
[2017-08-14] MEDS: Dexmedetomidine Hydrochloride 200 MCG in Sodium Chloride 0.9% 48 ML IV PRN ×2 (16:40→17:50)
[2017-08-14] MEDS: Dextrose 5%/0.9% NS 1,000 ML IV SCH (16:55)
--- NOTE | 2017-08-14 17:57 | CP.PCM.PN ---
Subjective - Date & Time of Evaluation Date of Evaluation: 08/14/17 Time of Evaluation: 14:40 - Subjective Subjective: clinically same Objective - Vital Signs/Intake and Output Vital Signs (last 24 hours): Temp Pulse Resp BP Pulse Ox 98.0 F 144 H 20 114/75 93 L 08/14/17 15:49 08/14/17 15:49 08/14/17 12:52 08/14/17 15:49 08/14/17 12:52 Intake and Output: 08/14/17 08/14/17 06:59 18:59 Intake Total 2 Balance 2 - Medications Medications: Current Medications Benztropine Mesylate (Cogentin) 1 mg PO BID [facility] Last Admin: 08/14/17 10:36 Dose: Not Given Diphenhydramine HCl (Benadryl) 25 mg PO Q8 PRN PRN Reason: Rash Last Admin: 08/12/17 21:25 Dose: 25 mg Diphenhydramine HCl (Benadryl) 50 mg PO Q6 PRN PRN Reason: Extra Pyramidal Symptoms Last Admin: 08/13/17 17:37 Dose: 50 mg Diphenhydramine HCl (Benadryl) 50 mg IM Q6 PRN PRN Reason: Agitation Last Admin: 08/14/17 10:36 Dose: 50 mg Enoxaparin Sodium (Lovenox) 40 mg SC DAILY [facility] Last Admin: 08/14/17 11:00 Dose: Not Given Haloperidol (Haldol) 5 mg PO Q8 PRN PRN Reason: Moderate Agitation Haloperidol (Haldol) 5 mg PO BID [facility] Last Admin: 08/14/17 10:36 Dose: Not Given Haloperidol Lactate (Haldol) 5 mg IM Q6 PRN PRN Reason: MODERATE AGITATION Last Admin: 08/14/17 10:36 Dose: 5 mg Ceftriaxone Sodium 1 gm/ (Sodium Chloride) 100 mls @ 100 mls/hr IVPB DAILY [facility] Last Admin: 08/14/17 13:30 Dose: 100 mls/hr Lactated Ringer's (Lactated Ringer's) 1,000 mls @ 75 mls/hr IV .[id number] [facility] Last Admin: 08/13/17 23:05 Dose: Not Given Dexmedetomidine HCl 200 mcg/ (Sodium Chloride) 50 mls @ 2.6 mls/hr IV TITR PRN ; Protocol; 0.2 MCG/KG/HR PRN Reason: Sedation Last Titration: 08/14/17 16:55 Dose: 1 mcg/kg/hr, 13.04 mls/hr Dextrose/Sodium Chloride (Dextrose 5%/0.9% Ns 1000 Ml) 1,000 mls @ 100 mls/hr IV .Q10H [facility] Last Admin: 08/14/17 16:55 Dose: 100 mls/hr Indomethacin (Indocin) 25 mg PO Q8H PRN PRN Reason: Pain, severe (8-10) Lorazepam (Ativan) 1 mg PO Q8H PRN PRN Reason: Severe Agitation Last Admin: 08/13/17 17:37 Dose: 1 mg Lorazepam (Ativan) 1 mg IM Q6 [facility] Last Admin: 08/14/17 12:37 Dose: 1 mg Metoprolol Tartrate (Lopressor) 25 mg PO BID [facility] Last Admin: 08/14/17 15:49 Dose: 25 mg Nicotine (Nicoderm Cq) 1 patch TD DAILY [facility] Last Admin: 08/14/17 11:00 Dose: Not Given Potassium Chloride (K-Dur 20 Meq Er Tab) 40 meq PO DAILY [facility] Last Admin: 08/14/17 13:33 Dose: 40 meq Trazodone HCl (Desyrel) 50 mg PO HS [facility] Last Admin: 08/13/17 23:05 Dose: Not Given - Labs Labs: 08/14/17 09:59 08/14/17 09:59 PT 12.4 SECONDS (9.7-12.2) H 08/14/17 09:59 INR 1.1 08/14/17 09:59 APTT 32 SECONDS (21-34) 08/14/17 09:59 - Constitutional Appears: Well - Head Exam Head Exam: ATRAUMATIC, NORMAL INSPECTION, NORMOCEPHALIC - Eye Exam Eye Exam: EOMI, Normal appearance, PERRL Pupil Exam: NORMAL ACCOMODATION, PERRL - ENT Exam ENT Exam: Mucous Membranes Moist, Normal Exam - Neck Exam Neck Exam: Full ROM, Normal Inspection. absent: Lymphadenopathy - Respiratory Exam Respiratory Exam: Decreased Breath Sounds - Cardiovascular Exam Cardiovascular Exam: REGULAR RHYTHM, +S1, +S2 - GI/Abdominal Exam GI & Abdominal Exam: Soft, Diminished Bowel Sounds - Rectal Exam Rectal Exam: Deferred Assessment and Plan (1) Chest pain Status: Acute (2) Pericardial effusion with cardiac tamponade Status: Acute (3) Abscess Status: Acute (4) Anemia Status: Acute (5) Bronchitis Status: Acute (6) Open wound Status: Acute
[2017-08-14 18:17] VITALS: BMI 25.2
[2017-08-14] MEDS ORDERED: Dexmedetomidine 200 MCG in NS 0.9% 48 ML IV PRN (18:19)
[2017-08-14 21:34] LABS: PROCALCITONIN SERUM 0.08 NG/ML (0.19-0.49)
[2017-08-14] MEDS: Dexmedetomidine Hydrochloride 400 MCG in Sodium Chloride 0.9% 96 ML IV PRN (21:51)
[2017-08-14 21:54] LABS: RAPID PLASMA REAGIN NONREACTIVE (NONREACTIVE)
[2017-08-15] MEDS: Dextrose 5%/0.9% NS 1,000 ML IV SCH ×3 (02:44→22:53)
[2017-08-15] MEDS: Dexmedetomidine Hydrochloride 400 MCG in Sodium Chloride 0.9% 96 ML IV PRN ×3 (03:50→13:45)
--- NOTE | 2017-08-15 07:21 | CP.PCM.CON ---
History of Present Illness - History of Present Illness History of Present Illness: CONSULT DICTATED CHANGE IN MS - ?? PARTIAL COMPLEX SEIZURE Vs TOXIC OR METABOLIC ENCEPHALOPATHY OFF SEDATIN EEG/CAT/MRI PSYCH FOLLOW UP B1 ABSTINENCE FROM SUBSTANCE Past Patient History - Past Medical History & Family History Past Medical History?: Yes - Past Social History Smoking Status: Current Some Days Smoker - CARDIAC Hx Cardiac Disorders: No - PULMONARY Other/Comment: PH NODES IN MY LUNGS - NEUROLOGICAL Hx Neurological Disorder: No - HEENT Hx HEENT Problems: No - RENAL Hx Chronic Kidney Disease: No - ENDOCRINE/METABOLIC Hx Endocrine Disorders: No - HEMATOLOGICAL/ONCOLOGICAL Hx Blood Disorders: No - INTEGUMENTARY Other/Comment: inner thighs it. chiness and discoloration - MUSCULOSKELETAL/RHEUMATOLOGICAL Hx Musculoskeletal Disorders: No Hx Falls: No - GASTROINTESTINAL Hx Gastrointestinal Disorders: No - GENITOURINARY/GYNECOLOGICAL Hx Genitourinary Disorders: No - PSYCHIATRIC Hx Substance Use: Yes (1 bag of marijuana /day) - SURGICAL HISTORY Hx Surgeries: Yes Hx Section: Yes (2014 1x) - ANESTHESIA Hx Anesthesia: Yes Hx Anesthesia Reactions: No Hx Malignant Hyperthermia: No Has any member of the family had a problem w/ anesthesia?: No Meds Allergies/Adverse Reactions: Allergies Allergy/AdvReac Type Severity Reaction Status Date / Time No Known Allergies Allergy Verified 08/07/17 19:14 - Medications Medications: Current Medications Benztropine Mesylate (Cogentin) 1 mg PO BID [facility] Last Admin: 08/14/17 10:36 Dose: Not Given Diphenhydramine HCl (Benadryl) 25 mg PO Q8 PRN PRN Reason: Rash Last Admin: 08/12/17 21:25 Dose: 25 mg Diphenhydramine HCl (Benadryl) 50 mg PO Q6 PRN PRN Reason: Extra Pyramidal Symptoms Last Admin: 08/13/17 17:37 Dose: 50 mg Diphenhydramine HCl (Benadryl) 50 mg IM Q6 PRN PRN Reason: Agitation Last Admin: 08/14/17 10:36 Dose: 50 mg Enoxaparin Sodium (Lovenox) 40 mg SC DAILY [facility] Last Admin: 08/14/17 11:00 Dose: Not Given Haloperidol (Haldol) 5 mg PO Q8 PRN PRN Reason: Moderate Agitation Haloperidol (Haldol) 5 mg PO BID [facility] Last Admin: 08/14/17 10:36 Dose: Not Given Haloperidol Lactate (Haldol) 5 mg IM Q6 PRN PRN Reason: MODERATE AGITATION Last Admin: 08/14/17 10:36 Dose: 5 mg Ceftriaxone Sodium 1 gm/ (Sodium Chloride) 100 mls @ 100 mls/hr IVPB DAILY [facility] Last Admin: 08/14/17 13:30 Dose: 100 mls/hr Dextrose/Sodium Chloride (Dextrose 5%/0.9% Ns 1000 Ml) 1,000 mls @ 100 mls/hr IV .Q10H [facility] Last Admin: 08/15/17 02:44 Dose: 100 mls/hr Dexmedetomidine HCl 400 mcg/ (Sodium Chloride) 100 mls @ 3.33 mls/hr IV TITR PRN; 0.2 MCG/KG/HR PRN Reason: Protocol Last Admin: 08/15/17 03:50 Dose: 1 mcg/kg/hr, 16.8 mls/hr Indomethacin (Indocin) 25 mg PO Q8H PRN PRN Reason: Pain, severe (8-10) Lorazepam (Ativan) 1 mg PO Q8H PRN PRN Reason: Severe Agitation Last Admin: 08/13/17 17:37 Dose: 1 mg Lorazepam (Ativan) 1 mg IM Q6 [facility] Last Admin: 08/14/17 12:37 Dose: 1 mg Metoprolol Tartrate (Lopressor) 25 mg PO BID [facility] Last Admin: 08/14/17 18:17 Dose: Not Given Nicotine (Nicoderm Cq) 1 patch TD DAILY [facility] Last Admin: 08/14/17 11:00 Dose: Not Given Potassium Chloride (K-Dur 20 Meq Er Tab) 40 meq PO DAILY [facility] Last Admin: 08/14/17 13:33 Dose: 40 meq Thiamine HCl (Vitamin B1 Tab) 100 mg PO DAILY [facility] Trazodone HCl (Desyrel) 50 mg PO HS [facility] Last Admin: 08/15/17 00:19 Dose: Not Given Results - Vital Signs Recent Vital Signs: Last Vital Signs Temp 98.6 F 08/15/17 00:00 Pulse 59 L 08/15/17 06:00 Resp 15 08/15/17 06:00 BP 146/103 H 08/15/17 05:34 Pulse Ox 98 08/15/17 06:00 - Labs Result Diagrams: 08/14/17 09:59 08/14/17 09:59 Labs: Laboratory Results - last 24 hr 08/10/17 08/10/17 08/10/17 16:37 16:37 16:37 WBC RBC Hgb Hct MCV MCH MCHC RDW Plt Count MPV Neut % (Auto) Lymph % (Auto) [place] % (Auto) Eos % (Auto) Baso % (Auto) Neut # Lymph # [place] # Eos # Baso # ESR PT INR APTT Sodium Potassium Chloride Carbon Dioxide Anion Gap BUN Creatinine Est GFR ( Amer) Est GFR (Non-Af Amer) Random Glucose Calcium Magnesium Total Bilirubin Direct Bilirubin AST ALT Alkaline Phosphatase Ammonia Total Protein Albumin Globulin Albumin/Globulin Ratio Procalcitonin Pericardial LDH Pericardial Glucose 98 Pericardial Fld CEA <2.0 Pleural Total Protein 5.4 RPR Hepatitis A IgM Ab Hep Bs Antigen Hep B Core IgM Ab Hepatitis C Antibody HIV 1&2 Antibody Screen 08/10/17 08/14/17 08/14/17 17:54 09:59 09:59 WBC 9.3 RBC 4.14 Hgb 10.6 L Hct 34.2 MCV 82.7 MCH 25.7 L MCHC 31.0 L RDW 20.0 H Plt Count 316 D MPV 8.2 Neut % (Auto) 70.1 Lymph % (Auto) 14.8 L [place] % (Auto) 10.5 H Eos % (Auto) 4.0 Baso % (Auto) 0.6 Neut # 6.5 Lymph # 1.4 [place] # 1.0 H Eos # 0.4 Baso # 0.1 ESR PT INR APTT Sodium 141 Potassium 3.4 L Chloride 104 Carbon Dioxide 29 Anion Gap 12 BUN < 2 L Creatinine 0.5 L Est GFR ( Amer) > 60 Est GFR (Non-Af Amer) > 60 Random Glucose 79 Calcium 8.2 L Magnesium 1.7 Total Bilirubin 0.6 Direct Bilirubin 0.3 AST 44 H D ALT 43 Alkaline Phosphatase 93 Ammonia Total Protein 6.2 L Albumin 3.2 L Globulin 3.0 Albumin/Globulin Ratio 1.1 Procalcitonin Pericardial LDH 247 Pericardial Glucose Pericardial Fld CEA Pleural Total Protein RPR Hepatitis A IgM Ab Hep Bs Antigen Hep B Core IgM Ab Hepatitis C Antibody HIV 1&2 Antibody Screen 08/14/17 08/14/17 08/14/17 09:59 09:59 17:24 WBC RBC Hgb Hct MCV MCH MCHC RDW Plt Count MPV Neut % (Auto) Lymph % (Auto) [place] % (Auto) Eos % (Auto) Baso % (Auto) Neut # Lymph # [place] # Eos # Baso # ESR 19 PT 12.4 H INR 1.1 APTT 32 Sodium Potassium Chloride Carbon Dioxide Anion Gap BUN Creatinine Est GFR ( Amer) Est GFR (Non-Af Amer) Random Glucose Calcium Magnesium Total Bilirubin Direct Bilirubin AST ALT Alkaline Phosphatase Ammonia 14 Total Protein Albumin Globulin Albumin/Globulin Ratio Procalcitonin Pericardial LDH Pericardial Glucose Pericardial Fld CEA Pleural Total Protein RPR Hepatitis A IgM Ab Hep Bs Antigen Hep B Core IgM Ab Hepatitis C Antibody HIV 1&2 Antibody Screen 08/14/17 08/14/17 08/14/17 17:24 17:24 17:24 WBC RBC Hgb Hct MCV MCH MCHC RDW Plt Count MPV Neut % (Auto) Lymph % (Auto) [place] % (Auto) Eos % (Auto) Baso % (Auto) Neut # Lymph # [place] # Eos # Baso # ESR PT INR APTT Sodium Potassium Chloride Carbon Dioxide Anion Gap BUN Creatinine Est GFR ( Amer) Est GFR (Non-Af Amer) Random Glucose Calcium Magnesium Total Bilirubin Direct Bilirubin AST ALT Alkaline Phosphatase Ammonia Total Protein Albumin Globulin Albumin/Globulin Ratio Procalcitonin 0.08 L Pericardial LDH Pericardial Glucose Pericardial Fld CEA Pleural Total Protein RPR Nonreactive Hepatitis A IgM Ab Negative Hep Bs Antigen Negative Hep B Core IgM Ab Negative Hepatitis C Antibody Negative HIV 1&2 Antibody Screen Negative
[2017-08-15] MEDS: Enoxaparin 40 mg Syringe SC SCH (11:03)
[2017-08-15] MEDS: Potassium Chloride 20 mEq ER Tab PO SCH (11:04)
--- NOTE | 2017-08-15 12:38 | CP.PCM.PN ---
Subjective - Date & Time of Evaluation Date of Evaluation: 08/15/17 Time of Evaluation: 09:45 - Subjective Subjective: CT surgery Progress note. Dr. Bowers Pt seen and examined at bedside with brother present. Brother states that the patient was not herself last night. Currently, patient is alert and oriented x3. Brother agrees and states that the patient is much better currently. She denies any CP/SOB. No N/V/D. No Abd pain. No complaints Objective - Vital Signs/Intake and Output Vital Signs (last 24 hours): Temp Pulse Resp BP Pulse Ox 98.6 F 96 H 22 120/96 H 100 08/15/17 00:00 08/15/17 12:03 08/15/17 12:03 08/15/17 12:03 08/15/17 11:00 Intake and Output: 08/15/17 08/15/17 06:59 18:59 Intake Total 1695.7 1197.2 Output Total 400 200 Balance 1295.7 997.2 - Medications Medications: Current Medications Benztropine Mesylate (Cogentin) 1 mg PO BID [facility] Last Admin: 08/14/17 10:36 Dose: Not Given Diphenhydramine HCl (Benadryl) 25 mg PO Q8 PRN PRN Reason: Rash Last Admin: 08/12/17 21:25 Dose: 25 mg Diphenhydramine HCl (Benadryl) 50 mg PO Q6 PRN PRN Reason: Extra Pyramidal Symptoms Last Admin: 08/13/17 17:37 Dose: 50 mg Diphenhydramine HCl (Benadryl) 50 mg IM Q6 PRN PRN Reason: Agitation Last Admin: 08/14/17 10:36 Dose: 50 mg Enoxaparin Sodium (Lovenox) 40 mg SC DAILY [facility] Last Admin: 08/15/17 11:03 Dose: Not Given Haloperidol (Haldol) 5 mg PO Q8 PRN PRN Reason: Moderate Agitation Haloperidol (Haldol) 5 mg PO BID [facility] Last Admin: 08/14/17 10:36 Dose: Not Given Haloperidol Lactate (Haldol) 5 mg IM Q6 PRN PRN Reason: MODERATE AGITATION Last Admin: 08/14/17 10:36 Dose: 5 mg Ceftriaxone Sodium 1 gm/ (Sodium Chloride) 100 mls @ 100 mls/hr IVPB DAILY [facility] Last Admin: 08/14/17 13:30 Dose: 100 mls/hr Dextrose/Sodium Chloride (Dextrose 5%/0.9% Ns 1000 Ml) 1,000 mls @ 100 mls/hr IV .Q10H [facility] Last Admin: 08/15/17 02:44 Dose: 100 mls/hr Dexmedetomidine HCl 400 mcg/ (Sodium Chloride) 100 mls @ 3.33 mls/hr IV TITR PRN; 0.2 MCG/KG/HR PRN Reason: Protocol Last Titration: 08/15/17 11:14 Dose: 1 mcg/kg/hr, 16.66 mls/hr Indomethacin (Indocin) 25 mg PO Q8H PRN PRN Reason: Pain, severe (8-10) Lorazepam (Ativan) 1 mg PO Q8H PRN PRN Reason: Severe Agitation Last Admin: 08/13/17 17:37 Dose: 1 mg Lorazepam (Ativan) 1 mg IM Q6 [facility] Last Admin: 08/14/17 12:37 Dose: 1 mg Metoprolol Tartrate (Lopressor) 25 mg PO BID [facility] Last Admin: 08/15/17 11:04 Dose: Not Given Nicotine (Nicoderm Cq) 1 patch TD DAILY [facility] Last Admin: 08/15/17 11:03 Dose: Not Given Potassium Chloride (K-Dur 20 Meq Er Tab) 40 meq PO DAILY [facility] Last Admin: 08/15/17 11:04 Dose: Not Given Thiamine HCl (Vitamin B1 Tab) 100 mg PO DAILY [facility] Last Admin: 08/15/17 10:53 Dose: 100 mg Trazodone HCl (Desyrel) 50 mg PO HS [facility] Last Admin: 08/15/17 00:19 Dose: Not Given - Labs Labs: 08/14/17 09:59 08/14/17 09:59 PT 12.4 SECONDS (9.7-12.2) H 08/14/17 09:59 INR 1.1 08/14/17 09:59 APTT 32 SECONDS (21-34) 08/14/17 09:59 - Constitutional Appears: Well, No Acute Distress - Head Exam Head Exam: ATRAUMATIC, NORMAL INSPECTION, NORMOCEPHALIC - Eye Exam Eye Exam: EOMI - ENT Exam ENT Exam: Mucous Membranes Moist - Respiratory Exam Respiratory Exam: NORMAL BREATHING PATTERN. absent: Accessory Muscle Use, Respiratory Distress - Cardiovascular Exam Cardiovascular Exam: RRR, +S1, +S2. absent: JVD - GI/Abdominal Exam GI & Abdominal Exam: Soft. absent: Distended, Firm, Guarding, Rigid, Tenderness Additional comments: perixiphoid midline incision intact with william. No drainage or discharge noted. Skin edges well approximated. - Extremities Exam Extremities Exam: Normal Inspection - Neurological Exam Neurological Exam: Alert, Awake, Oriented x3 Assessment and Plan - Assessment and Plan (Free Text) Assessment: 36yo F POD4 s/p pericardial window, hospital course complicated with possible delirium - CT Chest noted. - ECHO findings noted. No evidence of tamponade. - F/u Pulm plans - f/u AM CXR - No plans for any further cardiothoracic surgery intervention Further recs as per Dr. Elissa Mock PGY1 surgery pager: [phone]
--- NOTE | 2017-08-15 14:01 | CON ---
DATE: 08/15/2017 REASON FOR CONSULTATION: Change in mental status. CHIEF COMPLAINT: Patient was admitted with complication of breathing and patient did have pericardial effusion followed with pericardial window procedure. Patient was found to be combative and kicking the paramedicals and nurses, combative physical as well as abusing words. From neurologic point of view, I was called in to evaluate her for further management. HISTORY OF PRESENT ILLNESS: Ms. Lynsey Hernández is a 36-year-old female presenting with combative and violent behavior during her hospitalization. No history of association with involuntary movements, either before or after these events. No history of fall. No history of head trauma. No history of bowel and bladder incontinence during the episode. Because of this episode, patient was heavily sedated. PAST MEDICAL HISTORY: She does have pericardial effusion, status post pericardial window. PERSONAL HISTORY: She has alcohol abuse, substance abuse, and uses opiates and marijuana. MEDICATIONS: Benadryl, Lovenox, haloperidol, ceftriaxone, indomethacin, lorazepam, Precedex and trazodone. REVIEW OF SYSTEMS: A 12-point system has been reviewed. From neuro, change in mental status. PHYSICAL EXAMINATION: VITAL SIGNS: Blood pressure 146/103, mean arterial pressure of 117, respiratory rate 15, temperature afebrile, with pulse rate of 59, irregular. NEUROLOGIC: Patient is examined in the presence of the nurse. Verbally nonarousable; tactile stimuli, arousable. Speech is fluent. Does not follow any commands. She moves all 4 extremities. Cranial nerve examination: Forcibly opening the eyelids. Pupils are reactive to light. Extraocular movements are normal. No nystagmus. No facial sensory deficits. Tongue is moist. Motor examination: Outstretched hand with eyes closed, no drift, and she does not want to do it. Tone is normal in all 4 extremities. Deep tendon reflexes: Biceps, brachialis, and triceps are 2+ on either side, both knees are 2+, both ankles are trace. Plantars are downgoing. Sensory examination: Responds to pain symmetrically on both sides. Coordination and gait: Deferred at this time. WORKUP: EKG, normal sinus rhythm as per the monitor. BLOOD WORKUP: WBC 9.3, hemoglobin 10.6, hematocrit 34.2, platelets 316. PT 12.4, INR 1.1, PTT 32. Sodium 141, potassium 3.4, chloride 104, bicarbonate 29, GFR more than 60. Urine toxicology shows opiate positive, cannabinoids positive, alcohol level was not done. Hepatitis screen is negative. HIV is negative. CONCLUSION: Ms. Lynsey Hernández has been presenting with change in mental status with history of substance abuse. It is all probably related to her withdrawal, or toxic and metabolic encephalopathy. Patient does not show any clear long tract sign except her change in mental status which also subsided with use of sedation at present. RECOMMENDATION: 1. CT of the head without contrast to rule out any ischemic process or space-occupying lesion. 2. Medically cleared, patient should have MRI of the brain to rule out process, ischemic versus space-occupying lesion. 3. Blood workup as per the order. 4. Patient can be benefited with giving thiamine supplements. 5. Psychiatric followup and followup recommendation. 6. Patient should be kept on fall precaution as well as from self-mutilation. 7. Patient is also requested to have electroencephalogram. Jordan Piper MD
--- NOTE | 2017-08-15 16:30 | CP.CCUPN ---
<Santiago Gomez - Last Filed: 08/15/17 16:27> CCU Subjective - Physician Review Subjective (Free Text): PGY1 ICU progress note for Dr. Santillan Patient seen and examined at bedside this morning. Patient is confused and is attempting to stand up and leave her room, "this is not my room. I have to go back to my room." Patient was very agitated this morning when she was taken off of her sedation. She was quickly placed back on sedation. ROS unattainable due to AMS. CCU Objective - Vital Signs / Intake & Output Vital Signs (Last 4 hours): Vital Signs Pulse Resp BP Pulse Ox 08/15/17 15:34 62 23 132/94 H 08/15/17 14:35 91 H 24 121/88 08/15/17 13:35 71 16 130/93 H 97 08/15/17 12:34 65 20 122/82 95 Intake and Output (Last 8hrs): Intake & Output 08/15/17 08/15/17 08/15/17 06:59 14:59 22:59 Intake Total 1229.3 1650.8 283.6 Output Total 400 400 Balance 829.3 1250.8 283.6 Intake: IV 100.0 200 Intake, IV Amount 1129.3 950.8 233.6 Right Wrist 950 800 200 Right Wrist #2 179.3 150.8 33.6 Oral 500 50 Output: Urine 400 400 Urine, Voided 400 400 Stool 0 0 - Physical Exam Head: Positive for: Atraumatic, Normocephalic Pupils: Positive for: PERRL Extroacular Muscles: Positive for: EOMI Conjunctiva: Positive for: Normal Mouth: Positive for: Moist Mucous Membranes Respiratory/Chest: Positive for: Good Air Exchange, Rales (bases b/l ) Cardiovascular: Positive for: Tachycardic Abdomen: Positive for: Normal Bowel Sounds. Negative for: Tenderness, Distention Neurological: Positive for: GCS=15, CN II-XII Intact, Other (sedated ) Psychiatric: Positive for: Alert, Agitated (occasionally agitated. multiple attempts to leave room throughout day. ), Other (sedated). Negative for: Normal Affect, Normal Mood - Medications Active Medications: Active Medications Generic Name Dose Route Start Last Admin Trade Name Freq PRN Reason Stop Dose Admin Benztropine Mesylate 1 mg 08/14/17 10:00 08/14/17 10:36 Cogentin PO Not Given BID RYAN Diphenhydramine HCl 25 mg 08/08/17 20:29 08/12/17 21:25 Benadryl PO 25 mg Q8 PRN Administration Rash Diphenhydramine HCl 50 mg 08/13/17 10:30 08/13/17 17:37 Benadryl PO 50 mg Q6 PRN Administration Extra Pyramidal Symptoms Diphenhydramine HCl 50 mg 08/13/17 10:33 08/14/17 10:36 Benadryl IM 50 mg Q6 PRN Administration Agitation Enoxaparin Sodium 40 mg 08/11/17 22:15 08/15/17 11:03 Lovenox SC Not Given DAILY RYAN Haloperidol 5 mg 08/13/17 10:30 Haldol PO Q8 PRN Moderate Agitation Haloperidol 5 mg 08/14/17 10:00 08/14/17 10:36 Haldol PO Not Given BID RYAN Haloperidol Lactate 5 mg 08/13/17 11:00 08/14/17 10:36 Haldol IM 5 mg Q6 PRN Administration MODERATE AGITATION Ceftriaxone Sodium 1 gm/ 100 mls @ 100 mls/hr 08/11/17 10:00 08/15/17 12:37 Sodium Chloride IVPB 100 mls/hr DAILY RYAN Administration Dextrose/Sodium Chloride 1,000 mls @ 100 mls/hr 08/14/17 16:45 08/15/17 12:41 Dextrose 5%/0.9% Ns 1000 Ml IV 100 mls/hr .Q10H RYAN Administration Dexmedetomidine HCl 400 mcg/ 100 mls @ 3.33 mls/hr 08/14/17 19:15 08/15/17 13 :45 Sodium Chloride IV 1 mcg/kg/hr TITR PRN 16.66 mls/hr Protocol Administration 0.2 MCG/KG/HR Indomethacin 25 mg 08/14/17 13:21 Indocin PO Q8H PRN Pain, severe (8-10) Lorazepam 1 mg 08/13/17 10:30 08/13/17 17:37 Ativan PO 1 mg Q8H PRN Administration Severe Agitation Lorazepam 1 mg 08/13/17 12:00 08/14/17 12:37 Ativan IM 1 mg Q6 RYAN Administration Metoprolol Tartrate 25 mg 08/14/17 14:58 08/15/17 11:04 Lopressor PO Not Given BID RYAN Nicotine 1 patch 08/13/17 10:00 08/15/17 11:03 Nicoderm Cq TD Not Given DAILY RYAN Potassium Chloride 40 meq 08/14/17 13:30 08/15/17 11:04 K-Dur 20 Meq Er Tab PO Not Given DAILY RYAN Thiamine HCl 100 mg 08/15/17 10:00 08/15/17 10:53 Vitamin B1 Tab PO 100 mg DAILY RYAN Administration Trazodone HCl 50 mg 08/13/17 22:00 08/15/17 00:19 Desyrel PO Not Given HS RYAN - Patient Studies Lab Studies: Microbiology Studies 08/10/17 12:16 Virus Culture - Preliminary Other: Please Indicate Lab Studies 08/14/17 08/14/17 08/14/17 Range/Units 17:24 17:24 17:24 ESR (0-20) mm/hr Procalcitonin 0.08 L (0.19-0.49) NG/ML Pericardial LDH U/L Pericardial Glucose mg/dL Pericardial Fld CEA (<10.0) ng/mL LALA 6 Profile Negative (NEGATIVE) RPR Nonreactive (NONREACTIVE) Hepatitis A IgM Ab Negative (NEGATIVE) Hep Bs Antigen Negative (NEGATIVE) Hep B Core IgM Ab Negative (NEGATIVE) Hepatitis C Antibody Negative (NEGATIVE) HIV 1&2 Antibody Screen Negative (NEGATIVE) 08/14/17 08/10/17 08/10/17 Range/Units 17:24 17:54 16:37 ESR 19 (0-20) mm/hr Procalcitonin (0.19-0.49) NG/ML Pericardial LDH 247 U/L Pericardial Glucose mg/dL Pericardial Fld CEA <2.0 (<10.0) ng/mL LALA 6 Profile (NEGATIVE) RPR (NONREACTIVE) Hepatitis A IgM Ab (NEGATIVE) Hep Bs Antigen (NEGATIVE) Hep B Core IgM Ab (NEGATIVE) Hepatitis C Antibody (NEGATIVE) HIV 1&2 Antibody Screen (NEGATIVE) 08/10/17 Range/Units 16:37 ESR (0-20) mm/hr Procalcitonin (0.19-0.49) NG/ML Pericardial LDH U/L Pericardial Glucose 98 mg/dL Pericardial Fld CEA (<10.0) ng/mL LALA 6 Profile (NEGATIVE) RPR (NONREACTIVE) Hepatitis A IgM Ab (NEGATIVE) Hep Bs Antigen (NEGATIVE) Hep B Core IgM Ab (NEGATIVE) Hepatitis C Antibody (NEGATIVE) HIV 1&2 Antibody Screen (NEGATIVE) Laboratory Results - last 24 hr 08/10/17 08/10/17 08/10/17 16:37 16:37 17:54 ESR Procalcitonin Pericardial LDH 247 Pericardial Glucose 98 Pericardial Fld CEA <2.0 LALA 6 Profile RPR Hepatitis A IgM Ab Hep Bs Antigen Hep B Core IgM Ab Hepatitis C Antibody HIV 1&2 Antibody Screen 08/14/17 08/14/17 08/14/17 17:24 17:24 17:24 ESR 19 Procalcitonin 0.08 L Pericardial LDH Pericardial Glucose Pericardial Fld CEA LALA 6 Profile Negative RPR Nonreactive Hepatitis A IgM Ab Negative Hep Bs Antigen Negative Hep B Core IgM Ab Negative Hepatitis C Antibody Negative HIV 1&2 Antibody Screen 08/14/17 17:24 ESR Procalcitonin Pericardial LDH Pericardial Glucose Pericardial Fld CEA LALA 6 Profile RPR Hepatitis A IgM Ab Hep Bs Antigen Hep B Core IgM Ab Hepatitis C Antibody HIV 1&2 Antibody Screen Negative Review of Systems - Review of Systems Systems not reviewed;Unavailable: Altered Mental Status Critical Care Progress Note - Nutrition Nutrition: Nutrition Category Date Time Status Heart Healthy Diet [DIET] Diets 08/11/17 Dinner Active Assessment/Plan - Assessment and Plan (Free Text) Assessment: 36 years old female with no significant past medical history, admitted on with SOB and dx with very Large Pericardial effusion. s/p Pericardial window POD #3. Patient experienced AMS post anesthesia (ketamine) with acute delirium. Plan: Cardio: Dr. Cueva consulted, help appreciated Dr. Bowers consulted, help appreciated s/p pericardial window on 08/12 Pericardial fluid - LDH 247 (exudative); Glucose 98; CEA <2.0; Total Protein 5.4 - no malignant cells seen - ESR 19; procalcitonin 0.08 - origin of pericardial effusion believed to be viral etiology Pro-BNP 1950 Lopressor 25mg PO BID Cardio-surg rec - cleared from surgical standpoint for discharge. Patient is to follow up in ED within one week for repeat chest X-ray. - will continue to follow while in house Neuro: Dr. Piper consulted, help appreciated Dr. Olmos consulted, help appreciated Acute Delirium - possible side effect due to Ketamine being used for anesthesia during surgery. RPR nonreactive; Hep panel neg; HIV neg; LALA 6 profile neg Precedex drip Trazodone 50mg PO HS Anti-psychotics on hold while on precedex drip f/u neuro recs - recommend EEG/CAT/MRI - psych f/u Pulmonary: Chest CT 08/14 - Small pericardial effusion. Pneumopericardium presumably due to recent intervention. Moderate-sized bilateral pleural effusions and associated consolidations. Scattered patchy ground-glass opacities bilaterally may be infectious or inflammatory. Subcutaneous emphysema. Small amount of intravascular gas is noted within the upper abdomen anteriorly. CXR 08/14 - No significant interval change in bilateral lower lobe consolidations and pleural effusions, worse on the left. f/u Quantiferon-[facility] - r/o TB will plan for thoracentesis - f/u fluid analysis Prophylactic Care: Lovenox 40mg SC daily Case discussed with Dr. Tyrell Gomez PGY1 <Antolin Santillan - Last Filed: 08/15/17 18:33> CCU Objective - Vital Signs / Intake & Output Vital Signs (Last 4 hours): Vital Signs Pulse Resp BP 08/15/17 15:34 62 23 132/94 H 08/15/17 14:35 91 H 24 121/88 Intake and Output (Last 8hrs): Intake & Output 08/15/17 08/15/17 08/15/17 06:59 14:59 22:59 Intake Total 1229.3 1650.8 300.4 Output Total 400 400 Balance 829.3 1250.8 300.4 Intake: IV 100.0 200 Intake, IV Amount 1129.3 950.8 250.4 Right Wrist 950 800 200 Right Wrist #2 179.3 150.8 50.4 Oral 500 50 Output: Urine 400 400 Urine, Voided 400 400 Stool 0 0 - Medications Active Medications: Active Medications Generic Name Dose Route Start Last Admin Trade Name Freq PRN Reason Stop Dose Admin Benztropine Mesylate 1 mg 08/14/17 10:00 08/14/17 10:36 Cogentin PO Not Given BID RYAN Diphenhydramine HCl 25 mg 08/08/17 20:29 08/12/17 21:25 Benadryl PO 25 mg Q8 PRN Administration Rash Diphenhydramine HCl 50 mg 08/13/17 10:30 08/13/17 17:37 Benadryl PO 50 mg Q6 PRN Administration Extra Pyramidal Symptoms Diphenhydramine HCl 50 mg 08/13/17 10:33 08/14/17 10:36 Benadryl IM 50 mg Q6 PRN Administration Agitation Enoxaparin Sodium 40 mg 08/11/17 22:15 08/15/17 11:03 Lovenox SC Not Given DAILY RYAN Haloperidol 5 mg 08/13/17 10:30 Haldol PO Q8 PRN Moderate Agitation Haloperidol 5 mg 08/14/17 10:00 08/14/17 10:36 Haldol PO Not Given BID RYAN Haloperidol Lactate 5 mg 08/13/17 11:00 08/14/17 10:36 Haldol IM 5 mg Q6 PRN Administration MODERATE AGITATION Ceftriaxone Sodium 1 gm/ 100 mls @ 100 mls/hr 08/11/17 10:00 08/15/17 12:37 Sodium Chloride IVPB 100 mls/hr DAILY RYAN Administration Dextrose/Sodium Chloride 1,000 mls @ 100 mls/hr 08/14/17 16:45 08/15/17 12:41 Dextrose 5%/0.9% Ns 1000 Ml IV 100 mls/hr .Q10H RYAN Administration Dexmedetomidine HCl 400 mcg/ 100 mls @ 3.33 mls/hr 08/14/17 19:15 08/15/17 13 :45 Sodium Chloride IV 1 mcg/kg/hr TITR PRN 16.66 mls/hr Protocol Administration 0.2 MCG/KG/HR Indomethacin 25 mg 08/14/17 13:21 Indocin PO Q8H PRN Pain, severe (8-10) Lorazepam 1 mg 08/13/17 10:30 08/13/17 17:37 Ativan PO 1 mg Q8H PRN Administration Severe Agitation Lorazepam 1 mg 08/13/17 12:00 08/14/17 12:37 Ativan IM 1 mg Q6 RYAN Administration Metoprolol Tartrate 25 mg 08/14/17 14:58 08/15/17 17:30 Lopressor PO Not Given BID [facility] Nicotine 1 patch 08/13/17 10:00 08/15/17 11:03 Nicoderm Cq TD Not Given DAILY [facility] Potassium Chloride 40 meq 08/14/17 13:30 08/15/17 11:04 K-Dur 20 Meq Er Tab PO Not Given DAILY RYAN Thiamine HCl 100 mg 08/15/17 10:00 08/15/17 10:53 Vitamin B1 Tab PO 100 mg DAILY RYAN Administration Trazodone HCl 50 mg 08/13/17 22:00 08/15/17 00:19 Desyrel PO Not Given HS RYAN - Patient Studies Lab Studies: Microbiology Studies 08/14/17 17:20 MRSA Culture (Admit) - Final Naris MRSA NOT DETECTED 08/10/17 12:16 Virus Culture - Preliminary Other: Please Indicate Lab Studies 08/15/17 08/14/17 08/14/17 Range/Units 16:00 17:24 17:24 NT-Pro-B Natriuret Pep 1950 H (0-450) pg/mL Procalcitonin (0.19-0.49) NG/ML Pericardial LDH U/L Pericardial Glucose mg/dL LALA 6 Profile (NEGATIVE) RPR (NONREACTIVE) Hepatitis A IgM Ab Negative (NEGATIVE) Hep Bs Antigen Negative (NEGATIVE) Hep B Core IgM Ab Negative (NEGATIVE) Hepatitis C Antibody Negative (NEGATIVE) HIV 1&2 Antibody Screen Negative (NEGATIVE) 08/14/17 08/10/17 08/10/17 Range/Units 17:24 17:54 16:37 NT-Pro-B Natriuret Pep (0-450) pg/mL Procalcitonin 0.08 L (0.19-0.49) NG/ML Pericardial LDH 247 U/L Pericardial Glucose 98 mg/dL LALA 6 Profile Negative (NEGATIVE) RPR Nonreactive (NONREACTIVE) Hepatitis A IgM Ab (NEGATIVE) Hep Bs Antigen (NEGATIVE) Hep B Core IgM Ab (NEGATIVE) Hepatitis C Antibody (NEGATIVE) HIV 1&2 Antibody Screen (NEGATIVE) Laboratory Results - last 24 hr 08/10/17 08/10/17 08/14/17 16:37 17:54 17:24 NT-Pro-B Natriuret Pep Procalcitonin 0.08 L Pericardial LDH 247 Pericardial Glucose 98 LALA 6 Profile Negative RPR Nonreactive Hepatitis A IgM Ab Hep Bs Antigen Hep B Core IgM Ab Hepatitis C Antibody HIV 1&2 Antibody Screen 08/14/17 08/14/17 08/15/17 17:24 17:24 16:00 NT-Pro-B Natriuret Pep 1950 H Procalcitonin Pericardial LDH Pericardial Glucose LALA 6 Profile RPR Hepatitis A IgM Ab Negative Hep Bs Antigen Negative Hep B Core IgM Ab Negative Hepatitis C Antibody Negative HIV 1&2 Antibody Screen Negative Critical Care Progress Note - Nutrition Nutrition: Nutrition Category Date Time Status Heart Healthy Diet [DIET] Diets 08/11/17 Dinner Active Assessment/Plan (1) Pleural effusion Current Visit: Yes Status: Acute (2) Pericardial effusion with cardiac tamponade Current Visit: Yes Status: Acute (3) Acute psychosis Current Visit: Yes Status: Acute Attending/Attestation - Attestation I have personally seen and examined this patient.: Yes I have fully participated in the care of the patient.: Yes I have reviewed all pertinent clinical information: Yes Notes (Text): 08/15/17 18:32 patient seen and examined in the intensive care unit. Patient much more awake, alert and oriented Patient is off Precedex drip etiology bilateral pleural effusion and pericardial effusion is not clear Consider thoracentesis Continue present treatment Transfer to floor
--- NOTE | 2017-08-15 17:25 | CP.PCM.CON ---
History of Present Illness - History of Present Illness History of Present Illness: 36 y/o F with a PMHx of pericardial effusion s/p pericardial window. Chest x- ray on 08/14 - bilateral pleural effusions worse on the left. CT 08/14 - bilateral pleural effusions and associated consolidations and scattered patchy- ground glass opacities bilaterally. Patient was seen bedside. She is alert, but not oriented to time and place and combative. History and ROS were unable to be obtained. Per nursing, patient had admitted to alcohol abuse. Toxicology showed hx of opiate and marijuana use. Review of Systems - Review of Systems Systems not reviewed;Unavailable: Altered Mental Status Past Patient History - Past Medical History & Family History Past Medical History?: Yes - Past Social History Smoking Status: Current Some Days Smoker - CARDIAC Hx Cardiac Disorders: No - PULMONARY Other/Comment: PH NODES IN MY LUNGS - NEUROLOGICAL Hx Neurological Disorder: No - HEENT Hx HEENT Problems: No - RENAL Hx Chronic Kidney Disease: No - ENDOCRINE/METABOLIC Hx Endocrine Disorders: No - HEMATOLOGICAL/ONCOLOGICAL Hx Blood Disorders: No - INTEGUMENTARY Other/Comment: inner thighs it. chiness and discoloration - MUSCULOSKELETAL/RHEUMATOLOGICAL Hx Musculoskeletal Disorders: No Hx Falls: No - GASTROINTESTINAL Hx Gastrointestinal Disorders: No - GENITOURINARY/GYNECOLOGICAL Hx Genitourinary Disorders: No - PSYCHIATRIC Hx Substance Use: Yes (1 bag of marijuana /day) - SURGICAL HISTORY Hx Surgeries: Yes Hx Section: Yes (2014 1x) - ANESTHESIA Hx Anesthesia: Yes Hx Anesthesia Reactions: No Hx Malignant Hyperthermia: No Has any member of the family had a problem w/ anesthesia?: No Meds Allergies/Adverse Reactions: Allergies Allergy/AdvReac Type Severity Reaction Status Date / Time No Known Allergies Allergy Verified 08/07/17 19:14 - Medications Medications: Current Medications Benztropine Mesylate (Cogentin) 1 mg PO BID RYAN Last Admin: 08/14/17 10:36 Dose: Not Given Diphenhydramine HCl (Benadryl) 25 mg PO Q8 PRN PRN Reason: Rash Last Admin: 08/12/17 21:25 Dose: 25 mg Diphenhydramine HCl (Benadryl) 50 mg PO Q6 PRN PRN Reason: Extra Pyramidal Symptoms Last Admin: 08/13/17 17:37 Dose: 50 mg Diphenhydramine HCl (Benadryl) 50 mg IM Q6 PRN PRN Reason: Agitation Last Admin: 08/14/17 10:36 Dose: 50 mg Enoxaparin Sodium (Lovenox) 40 mg SC DAILY [facility] Last Admin: 08/15/17 11:03 Dose: Not Given Haloperidol (Haldol) 5 mg PO Q8 PRN PRN Reason: Moderate Agitation Haloperidol (Haldol) 5 mg PO BID [facility] Last Admin: 08/14/17 10:36 Dose: Not Given Haloperidol Lactate (Haldol) 5 mg IM Q6 PRN PRN Reason: MODERATE AGITATION Last Admin: 08/14/17 10:36 Dose: 5 mg Ceftriaxone Sodium 1 gm/ (Sodium Chloride) 100 mls @ 100 mls/hr IVPB DAILY [facility] Last Admin: 08/15/17 12:37 Dose: 100 mls/hr Dextrose/Sodium Chloride (Dextrose 5%/0.9% Ns 1000 Ml) 1,000 mls @ 100 mls/hr IV .Q10H [facility] Last Admin: 08/15/17 12:41 Dose: 100 mls/hr Dexmedetomidine HCl 400 mcg/ (Sodium Chloride) 100 mls @ 3.33 mls/hr IV TITR PRN; 0.2 MCG/KG/HR PRN Reason: Protocol Last Admin: 08/15/17 13:45 Dose: 1 mcg/kg/hr, 16.66 mls/hr Indomethacin (Indocin) 25 mg PO Q8H PRN PRN Reason: Pain, severe (8-10) Lorazepam (Ativan) 1 mg PO Q8H PRN PRN Reason: Severe Agitation Last Admin: 08/13/17 17:37 Dose: 1 mg Lorazepam (Ativan) 1 mg IM Q6 [facility] Last Admin: 08/14/17 12:37 Dose: 1 mg Metoprolol Tartrate (Lopressor) 25 mg PO BID [facility] Last Admin: 08/15/17 11:04 Dose: Not Given Nicotine (Nicoderm Cq) 1 patch TD DAILY [facility] Last Admin: 08/15/17 11:03 Dose: Not Given Potassium Chloride (K-Dur 20 Meq Er Tab) 40 meq PO DAILY [facility] Last Admin: 08/15/17 11:04 Dose: Not Given Thiamine HCl (Vitamin B1 Tab) 100 mg PO DAILY [facility] Last Admin: 08/15/17 10:53 Dose: 100 mg Trazodone HCl (Desyrel) 50 mg PO HS [facility] Last Admin: 08/15/17 00:19 Dose: Not Given Physical Exam - Constitutional Appears: Confused, Chronically Ill - Head Exam Head Exam: NORMOCEPHALIC - Eye Exam Eye Exam: PERRL - ENT Exam ENT Exam: Mucous Membranes Dry - Neck Exam Neck exam: Negative for: Lymphadenopathy - Respiratory Exam Respiratory Exam: Decreased Breath Sounds - Cardiovascular Exam Cardiovascular Exam: REGULAR RHYTHM, Rubs, +S1, +S2 - GI/Abdominal Exam GI & Abdominal Exam: Diminished Bowel Sounds, Soft. absent: Tenderness - Rectal Exam Rectal Exam: Deferred - Extremities Exam Extremities exam: Negative for: pedal edema Results - Vital Signs Recent Vital Signs: Last Vital Signs Temp 98.6 F 08/15/17 00:00 Pulse 62 08/15/17 15:34 Resp 23 08/15/17 15:34 BP 132/94 H 08/15/17 15:34 Pulse Ox 97 08/15/17 13:35 - Labs Result Diagrams: 08/14/17 09:59 08/14/17 09:59 Labs: Laboratory Results - last 24 hr 08/10/17 08/10/17 08/10/17 16:37 16:37 17:54 ESR NT-Pro-B Natriuret Pep Procalcitonin Pericardial LDH 247 Pericardial Glucose 98 Pericardial Fld CEA <2.0 LALA 6 Profile RPR Hepatitis A IgM Ab Hep Bs Antigen Hep B Core IgM Ab Hepatitis C Antibody HIV 1&2 Antibody Screen 08/14/17 08/14/17 08/14/17 17:24 17:24 17:24 ESR 19 NT-Pro-B Natriuret Pep Procalcitonin 0.08 L Pericardial LDH Pericardial Glucose Pericardial Fld CEA LALA 6 Profile Negative RPR Nonreactive Hepatitis A IgM Ab Negative Hep Bs Antigen Negative Hep B Core IgM Ab Negative Hepatitis C Antibody Negative HIV 1&2 Antibody Screen 08/14/17 08/15/17 17:24 16:00 ESR NT-Pro-B Natriuret Pep 1950 H Procalcitonin Pericardial LDH Pericardial Glucose Pericardial Fld CEA LALA 6 Profile RPR Hepatitis A IgM Ab Hep Bs Antigen Hep B Core IgM Ab Hepatitis C Antibody HIV 1&2 Antibody Screen Negative Assessment & Plan (1) Acute psychosis Status: Acute (2) Chest pain Status: Acute (3) Pericardial effusion with cardiac tamponade Status: Acute (4) Pleural effusion Status: Acute - Assessment and Plan (Free Text) Assessment: r/o infection vs autoimmune work up in progress cont iv antibiotics consider DONTAE , consider HIV PCR
--- NOTE | 2017-08-15 19:52 | CP.PCM.PN ---
Subjective - Date & Time of Evaluation Date of Evaluation: 08/15/17 Time of Evaluation: 14:20 - Subjective Subjective: clinically same Objective - Vital Signs/Intake and Output Vital Signs (last 24 hours): Temp Pulse Resp BP Pulse Ox 98.6 F 71 24 131/91 H 96 08/15/17 00:00 08/15/17 18:00 08/15/17 18:00 08/15/17 17:34 08/15/17 16:35 Intake and Output: 08/15/17 08/16/17 18:59 06:59 Intake Total 2318.0 116.8 Output Total 400 Balance 1918.0 116.8 - Medications Medications: Current Medications Benztropine Mesylate (Cogentin) 1 mg PO BID [facility] Last Admin: 08/14/17 10:36 Dose: Not Given Diphenhydramine HCl (Benadryl) 25 mg PO Q8 PRN PRN Reason: Rash Last Admin: 08/12/17 21:25 Dose: 25 mg Diphenhydramine HCl (Benadryl) 50 mg PO Q6 PRN PRN Reason: Extra Pyramidal Symptoms Last Admin: 08/13/17 17:37 Dose: 50 mg Diphenhydramine HCl (Benadryl) 50 mg IM Q6 PRN PRN Reason: Agitation Last Admin: 08/14/17 10:36 Dose: 50 mg Enoxaparin Sodium (Lovenox) 40 mg SC DAILY [facility] Last Admin: 08/15/17 11:03 Dose: Not Given Haloperidol (Haldol) 5 mg PO Q8 PRN PRN Reason: Moderate Agitation Haloperidol (Haldol) 5 mg PO BID [facility] Last Admin: 08/14/17 10:36 Dose: Not Given Haloperidol Lactate (Haldol) 5 mg IM Q6 PRN PRN Reason: MODERATE AGITATION Last Admin: 08/14/17 10:36 Dose: 5 mg Ceftriaxone Sodium 1 gm/ (Sodium Chloride) 100 mls @ 100 mls/hr IVPB DAILY [facility] Last Admin: 08/15/17 12:37 Dose: 100 mls/hr Dextrose/Sodium Chloride (Dextrose 5%/0.9% Ns 1000 Ml) 1,000 mls @ 100 mls/hr IV .Q10H [facility] Last Admin: 08/15/17 12:41 Dose: 100 mls/hr Dexmedetomidine HCl 400 mcg/ (Sodium Chloride) 100 mls @ 3.33 mls/hr IV TITR PRN; 0.2 MCG/KG/HR PRN Reason: Protocol Last Admin: 08/15/17 13:45 Dose: 1 mcg/kg/hr, 16.66 mls/hr Indomethacin (Indocin) 25 mg PO Q8H PRN PRN Reason: Pain, severe (8-10) Lorazepam (Ativan) 1 mg PO Q8H PRN PRN Reason: Severe Agitation Last Admin: 08/13/17 17:37 Dose: 1 mg Lorazepam (Ativan) 1 mg IM Q6 [facility] Last Admin: 08/14/17 12:37 Dose: 1 mg Metoprolol Tartrate (Lopressor) 25 mg PO BID [facility] Last Admin: 08/15/17 17:30 Dose: Not Given Nicotine (Nicoderm Cq) 1 patch TD DAILY [facility] Last Admin: 08/15/17 11:03 Dose: Not Given Potassium Chloride (K-Dur 20 Meq Er Tab) 40 meq PO DAILY [facility] Last Admin: 08/15/17 11:04 Dose: Not Given Thiamine HCl (Vitamin B1 Tab) 100 mg PO DAILY [facility] Last Admin: 08/15/17 10:53 Dose: 100 mg Trazodone HCl (Desyrel) 50 mg PO HS [facility] Last Admin: 08/15/17 00:19 Dose: Not Given - Labs Labs: 08/14/17 09:59 08/14/17 09:59 PT 12.4 SECONDS (9.7-12.2) H 08/14/17 09:59 INR 1.1 08/14/17 09:59 APTT 32 SECONDS (21-34) 08/14/17 09:59 - Constitutional Appears: Well - Head Exam Head Exam: ATRAUMATIC, NORMAL INSPECTION, NORMOCEPHALIC - Eye Exam Eye Exam: EOMI, Normal appearance, PERRL Pupil Exam: NORMAL ACCOMODATION, PERRL - ENT Exam ENT Exam: Mucous Membranes Moist, Normal Exam - Neck Exam Neck Exam: Full ROM, Normal Inspection. absent: Lymphadenopathy - Respiratory Exam Respiratory Exam: Decreased Breath Sounds - Cardiovascular Exam Cardiovascular Exam: REGULAR RHYTHM, +S1, +S2 - GI/Abdominal Exam GI & Abdominal Exam: Soft, Diminished Bowel Sounds - Rectal Exam Rectal Exam: Deferred Assessment and Plan (1) Chest pain Status: Acute (2) Pericardial effusion with cardiac tamponade Status: Acute (3) Abscess Status: Acute (4) Anemia Status: Acute (5) Bronchitis Status: Acute (6) Open wound Status: Acute
--- NOTE | 2017-08-15 20:56 | CP.PCM.PN ---
Subjective - Date & Time of Evaluation Date of Evaluation: 08/15/17 Time of Evaluation: 17:00 - Subjective Subjective: Patient seen and examined. Confused Physical Examination - Physical Exam Head: Positive for: Atraumatic, Normocephalic Pupils: Positive for: PERRL Extroacular Muscles: Positive for: EOMI Conjunctiva: Positive for: Normal Mouth: Positive for: Moist Mucous Membranes Respiratory/Chest: Positive for: Good Air Exchange, Rales (bases b/l ) Cardiovascular: Positive for: Tachycardic Abdomen: Positive for: Normal Bowel Sounds. Negative for: Tenderness, Distention Neurological: Positive for: GCS=15, CN II-XII Intact, Other (sedated ) Psychiatric: Positive for: Alert, Agitated (occasionally agitated. multiple attempts to leave room throughout day. ), Other (sedated). Negative for: Normal Affect, Normal Mood Objective - Vital Signs/Intake and Output Vital Signs (last 24 hours): Temp Pulse Resp BP Pulse Ox 98.6 F 71 24 131/91 H 96 08/15/17 00:00 08/15/17 18:00 08/15/17 18:00 08/15/17 17:34 08/15/17 16:35 Intake and Output: 08/15/17 08/16/17 18:59 06:59 Intake Total 2318.0 116.8 Output Total 400 Balance 1918.0 116.8 - Medications Medications: Current Medications Benztropine Mesylate (Cogentin) 1 mg PO BID [facility] Last Admin: 08/14/17 10:36 Dose: Not Given Diphenhydramine HCl (Benadryl) 25 mg PO Q8 PRN PRN Reason: Rash Last Admin: 08/12/17 21:25 Dose: 25 mg Diphenhydramine HCl (Benadryl) 50 mg PO Q6 PRN PRN Reason: Extra Pyramidal Symptoms Last Admin: 08/13/17 17:37 Dose: 50 mg Diphenhydramine HCl (Benadryl) 50 mg IM Q6 PRN PRN Reason: Agitation Last Admin: 08/14/17 10:36 Dose: 50 mg Enoxaparin Sodium (Lovenox) 40 mg SC DAILY [facility] Last Admin: 08/15/17 11:03 Dose: Not Given Haloperidol (Haldol) 5 mg PO Q8 PRN PRN Reason: Moderate Agitation Haloperidol (Haldol) 5 mg PO BID [facility] Last Admin: 08/14/17 10:36 Dose: Not Given Haloperidol Lactate (Haldol) 5 mg IM Q6 PRN PRN Reason: MODERATE AGITATION Last Admin: 08/14/17 10:36 Dose: 5 mg Ceftriaxone Sodium 1 gm/ (Sodium Chloride) 100 mls @ 100 mls/hr IVPB DAILY [facility] Last Admin: 08/15/17 12:37 Dose: 100 mls/hr Dextrose/Sodium Chloride (Dextrose 5%/0.9% Ns 1000 Ml) 1,000 mls @ 100 mls/hr IV .Q10H [facility] Last Admin: 08/15/17 12:41 Dose: 100 mls/hr Dexmedetomidine HCl 400 mcg/ (Sodium Chloride) 100 mls @ 3.33 mls/hr IV TITR PRN; 0.2 MCG/KG/HR PRN Reason: Protocol Last Admin: 08/15/17 13:45 Dose: 1 mcg/kg/hr, 16.66 mls/hr Indomethacin (Indocin) 25 mg PO Q8H PRN PRN Reason: Pain, severe (8-10) Lorazepam (Ativan) 1 mg PO Q8H PRN PRN Reason: Severe Agitation Last Admin: 08/13/17 17:37 Dose: 1 mg Lorazepam (Ativan) 1 mg IM Q6 [facility] Last Admin: 08/14/17 12:37 Dose: 1 mg Metoprolol Tartrate (Lopressor) 25 mg PO BID [facility] Last Admin: 08/15/17 17:30 Dose: Not Given Nicotine (Nicoderm Cq) 1 patch TD DAILY [facility] Last Admin: 08/15/17 11:03 Dose: Not Given Potassium Chloride (K-Dur 20 Meq Er Tab) 40 meq PO DAILY [facility] Last Admin: 08/15/17 11:04 Dose: Not Given Thiamine HCl (Vitamin B1 Tab) 100 mg PO DAILY [facility] Last Admin: 08/15/17 10:53 Dose: 100 mg Trazodone HCl (Desyrel) 50 mg PO HS [facility] Last Admin: 08/15/17 00:19 Dose: Not Given - Labs Labs: 08/14/17 09:59 08/14/17 09:59 PT 12.4 SECONDS (9.7-12.2) H 08/14/17 09:59 INR 1.1 08/14/17 09:59 APTT 32 SECONDS (21-34) 08/14/17 09:59 Assessment and Plan - Assessment and Plan (Free Text) Assessment: Assessment/Plan - Assessment and Plan (Free Text) Assessment: 36 years old female with no significant past medical history, admitted on with SOB and dx with very Large Pericardial effusion. s/p Pericardial window POD #3. Patient experienced AMS post anesthesia (ketamine) with acute delirium. Plan: Cardio: Dr. Bowers consulted, help appreciated s/p pericardial window on 08/12 Pericardial fluid - LDH 247 (exudative); Glucose 98; CEA <2.0; Total Protein 5.4 - no malignant cells seen - ESR 19; procalcitonin 0.08 - origin of pericardial effusion believed to be viral etiology Pro-BNP 1950 Lopressor 25mg PO BID Cardio-surg rec - cleared from surgical standpoint for discharge. Patient is to follow up in ED within one week for repeat chest X-ray. - will continue to follow while in house Neuro: Dr. Piper consulted, help appreciated Dr. Olmos consulted, help appreciated Acute Delirium - possible side effect due to Ketamine being used for anesthesia during surgery. RPR nonreactive; Hep panel neg; HIV neg; LALA 6 profile neg Precedex drip Trazodone 50mg PO HS Anti-psychotics on hold while on precedex drip f/u neuro recs - recommend EEG/CAT/MRI - psych f/u Pulmonary: Chest CT 08/14 - Small pericardial effusion. Pneumopericardium presumably due to recent intervention. Moderate-sized bilateral pleural effusions and associated consolidations. Scattered patchy ground-glass opacities bilaterally may be infectious or inflammatory. Subcutaneous emphysema. Small amount of intravascular gas is noted within the upper abdomen anteriorly. CXR 08/14 - No significant interval change in bilateral lower lobe consolidations and pleural effusions, worse on the left. f/u [employer] - r/o TB will plan for thoracentesis - f/u fluid analysis Prophylactic Care: Lovenox 40mg SC daily
--- NOTE | 2017-08-15 21:00 | CP.PCM.PN ---
Subjective - Date & Time of Evaluation Date of Evaluation: 08/13/17 Time of Evaluation: 12:05 - Subjective Subjective: patient seen and evaluated Denies chest pain and dyspnea Morning events noted (Around 5am patient on her own removed the connection of her chest tube to pleural-vac, for the purpose of leaving AMA. Patient initially expressed didn't like the feeling of being in the hospital/icu. Patient later admitted she could stay in regular room but not in icu room and she wants to possibly breath outside air and smoke while she is being transferred. Beatrice herzog was called and security had to come twice due to patients initial aggressive behaviour. Patient was evaluated by surgery resident , may remove the pleural tubes later in the day if she is now willing to stay, peural-vac was changed. CXR done continues to show fluid on the right chest, unclear if pneumothorax as well. Patient later agreed to be transferred to tele bed out of the icu, increase nicoderm to 21mg/d, ativan 1mg iv, haldol 1mg iv. Currently security monitoring her 1:1, surgery team aware of the events) Physical Examination Appears: Non-toxic, No Acute Distress - ENT Exam ENT Exam: Mucous Membranes Moist - Respiratory Exam Respiratory Exam: absent: Accessory Muscle Use, Respiratory Distress - Cardiovascular Exam Cardiovascular Exam: REGULAR RHYTHM Additional comments: incisions c/d/i - GI/Abdominal Exam GI & Abdominal Exam: Soft. absent: Distended, Firm, Tenderness - Neurological Exam Neurological Exam: Alert, Awake, Oriented x3 - Psychiatric Exam Psychiatric exam: Normal Affect, Normal Mood - Skin Skin Exam: Normal Color, Warm Objective - Vital Signs/Intake and Output Vital Signs (last 24 hours): Temp Pulse Resp BP Pulse Ox 98.6 F 71 24 131/91 H 96 08/15/17 00:00 08/15/17 18:00 08/15/17 18:00 08/15/17 17:34 08/15/17 16:35 Intake and Output: 08/15/17 08/16/17 18:59 06:59 Intake Total 2318.0 116.8 Output Total 400 Balance 1918.0 116.8 - Medications Medications: Current Medications Benztropine Mesylate (Cogentin) 1 mg PO BID [facility] Last Admin: 08/14/17 10:36 Dose: Not Given Diphenhydramine HCl (Benadryl) 25 mg PO Q8 PRN PRN Reason: Rash Last Admin: 08/12/17 21:25 Dose: 25 mg Diphenhydramine HCl (Benadryl) 50 mg PO Q6 PRN PRN Reason: Extra Pyramidal Symptoms Last Admin: 08/13/17 17:37 Dose: 50 mg Diphenhydramine HCl (Benadryl) 50 mg IM Q6 PRN PRN Reason: Agitation Last Admin: 08/14/17 10:36 Dose: 50 mg Enoxaparin Sodium (Lovenox) 40 mg SC DAILY [facility] Last Admin: 08/15/17 11:03 Dose: Not Given Haloperidol (Haldol) 5 mg PO Q8 PRN PRN Reason: Moderate Agitation Haloperidol (Haldol) 5 mg PO BID [facility] Last Admin: 08/14/17 10:36 Dose: Not Given Haloperidol Lactate (Haldol) 5 mg IM Q6 PRN PRN Reason: MODERATE AGITATION Last Admin: 08/14/17 10:36 Dose: 5 mg Ceftriaxone Sodium 1 gm/ (Sodium Chloride) 100 mls @ 100 mls/hr IVPB DAILY [facility] Last Admin: 08/15/17 12:37 Dose: 100 mls/hr Dextrose/Sodium Chloride (Dextrose 5%/0.9% Ns 1000 Ml) 1,000 mls @ 100 mls/hr IV .Q10H [facility] Last Admin: 08/15/17 12:41 Dose: 100 mls/hr Dexmedetomidine HCl 400 mcg/ (Sodium Chloride) 100 mls @ 3.33 mls/hr IV TITR PRN; 0.2 MCG/KG/HR PRN Reason: Protocol Last Admin: 08/15/17 13:45 Dose: 1 mcg/kg/hr, 16.66 mls/hr Indomethacin (Indocin) 25 mg PO Q8H PRN PRN Reason: Pain, severe (8-10) Lorazepam (Ativan) 1 mg PO Q8H PRN PRN Reason: Severe Agitation Last Admin: 08/13/17 17:37 Dose: 1 mg Lorazepam (Ativan) 1 mg IM Q6 [facility] Last Admin: 08/14/17 12:37 Dose: 1 mg Metoprolol Tartrate (Lopressor) 25 mg PO BID [facility] Last Admin: 08/15/17 17:30 Dose: Not Given Nicotine (Nicoderm Cq) 1 patch TD DAILY [facility] Last Admin: 08/15/17 11:03 Dose: Not Given Potassium Chloride (K-Dur 20 Meq Er Tab) 40 meq PO DAILY [facility] Last Admin: 08/15/17 11:04 Dose: Not Given Thiamine HCl (Vitamin B1 Tab) 100 mg PO DAILY [facility] Last Admin: 08/15/17 10:53 Dose: 100 mg Trazodone HCl (Desyrel) 50 mg PO HS [facility] Last Admin: 08/15/17 00:19 Dose: Not Given - Labs Labs: 08/14/17 09:59 08/14/17 09:59 PT 12.4 SECONDS (9.7-12.2) H 08/14/17 09:59 INR 1.1 08/14/17 09:59 APTT 32 SECONDS (21-34) 08/14/17 09:59 Assessment and Plan - Assessment and Plan (Free Text) Assessment: 36yo F POD4 s/p pericardial window, hospital course complicated with poss delirium - f/u AM CXR - f/u CT Chest as ordered - ECHO findings noted. No evidence of tamponade. Likely will slowly drain from the pericardial window Further recs as per Dr. Bowers
--- NOTE | 2017-08-15 21:05 | CP.PCM.PN ---
Subjective - Date & Time of Evaluation Date of Evaluation: 08/14/17 Time of Evaluation: 09:00 - Subjective Subjective: Pt seen and examined at bedside. Patient with nursing staff and security in the room. patient in four point restraints at this time. Confused but does respond to questions somewhat appropriately. Denies any chest pain or shortness of breath. No F/C. No headaches. No Abd pain Physical examination - Constitutional Appears: No Acute Distress, Agitated, Confused - Head Exam Head Exam: ATRAUMATIC, NORMAL INSPECTION, NORMOCEPHALIC - Eye Exam Eye Exam: EOMI - ENT Exam ENT Exam: Mucous Membranes Moist - Respiratory Exam Respiratory Exam: NORMAL BREATHING PATTERN. absent: Accessory Muscle Use, Respiratory Distress - GI/Abdominal Exam GI & Abdominal Exam: Soft. absent: Distended, Firm, Guarding, Rigid, Tenderness Additional comments: midline periepigastric incision intact with william. No drainage. skin margins well approximated - Extremities Exam Extremities Exam: Normal Inspection. absent: Calf Tenderness - Neurological Exam Neurological Exam: Altered, Awake. absent: Oriented x3 Objective - Vital Signs/Intake and Output Vital Signs (last 24 hours): Temp Pulse Resp BP Pulse Ox 98.6 F 71 24 131/91 H 96 08/15/17 00:00 08/15/17 18:00 08/15/17 18:00 08/15/17 17:34 08/15/17 16:35 Intake and Output: 08/15/17 08/16/17 18:59 06:59 Intake Total 2318.0 116.8 Output Total 400 Balance 1918.0 116.8 - Medications Medications: Current Medications Benztropine Mesylate (Cogentin) 1 mg PO BID [facility] Last Admin: 08/14/17 10:36 Dose: Not Given Diphenhydramine HCl (Benadryl) 25 mg PO Q8 PRN PRN Reason: Rash Last Admin: 08/12/17 21:25 Dose: 25 mg Diphenhydramine HCl (Benadryl) 50 mg PO Q6 PRN PRN Reason: Extra Pyramidal Symptoms Last Admin: 08/13/17 17:37 Dose: 50 mg Diphenhydramine HCl (Benadryl) 50 mg IM Q6 PRN PRN Reason: Agitation Last Admin: 08/14/17 10:36 Dose: 50 mg Enoxaparin Sodium (Lovenox) 40 mg SC DAILY [facility] Last Admin: 08/15/17 11:03 Dose: Not Given Haloperidol (Haldol) 5 mg PO Q8 PRN PRN Reason: Moderate Agitation Haloperidol (Haldol) 5 mg PO BID [facility] Last Admin: 08/14/17 10:36 Dose: Not Given Haloperidol Lactate (Haldol) 5 mg IM Q6 PRN PRN Reason: MODERATE AGITATION Last Admin: 08/14/17 10:36 Dose: 5 mg Ceftriaxone Sodium 1 gm/ (Sodium Chloride) 100 mls @ 100 mls/hr IVPB DAILY [facility] Last Admin: 08/15/17 12:37 Dose: 100 mls/hr Dextrose/Sodium Chloride (Dextrose 5%/0.9% Ns 1000 Ml) 1,000 mls @ 100 mls/hr IV .Q10H [facility] Last Admin: 08/15/17 12:41 Dose: 100 mls/hr Dexmedetomidine HCl 400 mcg/ (Sodium Chloride) 100 mls @ 3.33 mls/hr IV TITR PRN; 0.2 MCG/KG/HR PRN Reason: Protocol Last Admin: 08/15/17 13:45 Dose: 1 mcg/kg/hr, 16.66 mls/hr Indomethacin (Indocin) 25 mg PO Q8H PRN PRN Reason: Pain, severe (8-10) Lorazepam (Ativan) 1 mg PO Q8H PRN PRN Reason: Severe Agitation Last Admin: 08/13/17 17:37 Dose: 1 mg Lorazepam (Ativan) 1 mg IM Q6 [facility] Last Admin: 08/14/17 12:37 Dose: 1 mg Metoprolol Tartrate (Lopressor) 25 mg PO BID [facility] Last Admin: 08/15/17 17:30 Dose: Not Given Nicotine (Nicoderm Cq) 1 patch TD DAILY [facility] Last Admin: 08/15/17 11:03 Dose: Not Given Potassium Chloride (K-Dur 20 Meq Er Tab) 40 meq PO DAILY [facility] Last Admin: 08/15/17 11:04 Dose: Not Given Thiamine HCl (Vitamin B1 Tab) 100 mg PO DAILY [facility] Last Admin: 08/15/17 10:53 Dose: 100 mg Trazodone HCl (Desyrel) 50 mg PO HS [facility] Last Admin: 08/15/17 00:19 Dose: Not Given - Labs Labs: 08/14/17 09:59 08/14/17 09:59 PT 12.4 SECONDS (9.7-12.2) H 12 09:59 INR 1.1 08/14/17 09:59 APTT 32 SECONDS (21-34) 08/14/17 09:59 Assessment and Plan - Assessment and Plan (Free Text) Assessment: 36yo F POD4 s/p pericardial window, hospital course complicated with poss delirium - f/u AM CXR - f/u CT Chest as ordered - ECHO findings noted. No evidence of tamponade. Likely will slowly drain from the pericardial window Further recs as per Dr. Bowers
[2017-08-15] MEDS ORDERED: Potassium Chloride 10 mEq ER Tab PO STA (23:19)
[2017-08-16] MEDS: Dexmedetomidine Hydrochloride 400 MCG in Sodium Chloride 0.9% 96 ML IV PRN ×2 (02:27→08:48)
[2017-08-16 06:49] LABS: HEMATOCRIT 33.4 % (34.0-47.0); MEAN CELL VOLUME 82.8 fL (81.0-99.0); MEAN CORPUSCULAR HGB CONC 31.4 g/dL (33.0-37.0); MEAN PLATELET VOLUME 8.3 fL (7.2-11.7); RED CELL DISTRIBUTION WIDTH 19.5 % (11.5-14.5); WHITE BLOOD COUNT 8.3 K/uL (4.8-10.8)
[2017-08-16 06:52] LABS: ALKALINE PHOSPHATASE 77 U/L (38-126); ALT/SGPT 42 U/L (9-52); AST/SGOT 30 U/L (14-36); BILIRUBIN,TOTAL 0.4 mg/dL (0.2-1.3); CALCIUM 7.9 mg/dl (8.6-10.4); CARBON DIOXIDE 27 mmol/L (22-30); CHLORIDE 106 mmol/L (98-107); GFR AFRICAN-AMERICAN > 60; GLUCOSE,RANDOM 111 mg/dL (65-105); MAGNESIUM 1.5 mg/dL (1.6-2.3); PHOSPHOROUS 4.2 mg/dL (2.5-4.5); POTASSIUM 3.3 mmol/L (3.6-5.2); SODIUM 138 mmol/L (132-148); TOTAL PROTEIN 5.9 g/dL (6.3-8.3)
[2017-08-16 06:53] LABS: BLOOD UREA NITROGEN < 2 mg/dL (7-17)
[2017-08-16] MEDS ORDERED: Potassium Chloride 20 mEq ER Tab PO ONE (08:00)
--- NOTE | 2017-08-16 08:21 | CP.PCM.PCO ---
Physician Communication Note - Physician Communication Note Physician Communication Note: CT surg note. Cleared for d/c. pleural effusion mgmt as per Pulmonology
[2017-08-16] MEDS: Dextrose 5%/0.9% NS 1,000 ML IV SCH (08:24)
--- NOTE | 2017-08-16 09:06 | RAD ---
Chest x-ray single frontal view History: Pericardial effusion. Comparison: 08/14/2017 Findings Persistent moderate loculated bilateral pleural effusions. Confluent consolidative changes in the left mid to lower lung zone as well as the right lung base. Mild venous congestion. Left hilar prominence. Cardiomegaly. Degenerative changes in the spine and shoulders. Few distended loops of bowel in the upper abdomen. Surgical clips project over the upper abdomen. Impression: Persistent moderate loculated bilateral pleural effusions. Confluent consolidative changes in the left mid to lower lung zone as well as the right lung base. Mild venous congestion. Left hilar prominence. Cardiomegaly.
[2017-08-16] MEDS: Enoxaparin 40 mg Syringe SC SCH (09:46)
[2017-08-16 12:08] VITALS: TEMP 98.2; O2SAT 97
--- NOTE | 2017-08-16 14:04 | CP.PCM.PN ---
Subjective - Date & Time of Evaluation Date of Evaluation: 08/16/17 Time of Evaluation: 13:50 - Subjective Subjective: IMAGERY INTELLIGENCE NOTES Patient seen today awake, alert, ox3, calm and co operative Objective - Vital Signs/Intake and Output Vital Signs (last 24 hours): Temp Pulse Resp BP Pulse Ox 98.2 F 66 25 H 139/99 H 97 08/16/17 12:00 08/16/17 13:00 08/16/17 13:00 08/16/17 11:34 08/16/17 12:00 Intake and Output: 08/16/17 08/16/17 06:59 18:59 Intake Total 2341.6 1470.2 Output Total 700 600 Balance 1641.6 870.2 - Medications Medications: Current Medications Benztropine Mesylate (Cogentin) 1 mg PO BID [facility] Last Admin: 08/14/17 10:36 Dose: Not Given Diphenhydramine HCl (Benadryl) 25 mg PO Q8 PRN PRN Reason: Rash Last Admin: 08/12/17 21:25 Dose: 25 mg Diphenhydramine HCl (Benadryl) 50 mg PO Q6 PRN PRN Reason: Extra Pyramidal Symptoms Last Admin: 08/13/17 17:37 Dose: 50 mg Diphenhydramine HCl (Benadryl) 50 mg IM Q6 PRN PRN Reason: Agitation Last Admin: 08/14/17 10:36 Dose: 50 mg Enoxaparin Sodium (Lovenox) 40 mg SC DAILY [facility] Last Admin: 08/16/17 09:46 Dose: 40 mg Haloperidol (Haldol) 5 mg PO Q8 PRN PRN Reason: Moderate Agitation Haloperidol (Haldol) 5 mg PO BID [facility] Last Admin: 08/14/17 10:36 Dose: Not Given Haloperidol Lactate (Haldol) 5 mg IM Q6 PRN PRN Reason: MODERATE AGITATION Last Admin: 08/14/17 10:36 Dose: 5 mg Dextrose/Sodium Chloride (Dextrose 5%/0.9% Ns 1000 Ml) 1,000 mls @ 100 mls/hr IV .Q10H [facility] Last Admin: 08/16/17 08:24 Dose: 100 mls/hr Indomethacin (Indocin) 25 mg PO Q8H PRN PRN Reason: Pain, severe (8-10) Lorazepam (Ativan) 1 mg PO Q8H PRN PRN Reason: Severe Agitation Last Admin: 08/13/17 17:37 Dose: 1 mg Lorazepam (Ativan) 1 mg IM Q6 [facility] Last Admin: 08/14/17 12:37 Dose: 1 mg Metoprolol Tartrate (Lopressor) 25 mg PO BID [facility] Last Admin: 08/16/17 09:46 Dose: 25 mg Nicotine (Nicoderm Cq) 1 patch TD DAILY [facility] Last Admin: 08/16/17 09:48 Dose: 1 patch Thiamine HCl (Vitamin B1 Tab) 100 mg PO DAILY [facility] Last Admin: 08/16/17 09:49 Dose: 100 mg Trazodone HCl (Desyrel) 50 mg PO HS [facility] Last Admin: 08/15/17 22:53 Dose: Not Given - Labs Labs: 08/16/17 06:37 08/16/17 06:34 PT 12.4 SECONDS (9.7-12.2) H 08/14/17 09:59 INR 1.1 08/14/17 09:59 APTT 32 SECONDS (21-34) 08/14/17 09:59 - Constitutional Appears: Well, No Acute Distress - Neurological Exam Neurological Exam: Alert, Awake, Oriented x3 Assessment and Plan - Assessment and Plan (Free Text) Assessment: A/P 36 years old female with no significant past medical history, admitted with SOB and dx with very Large Pericardial effusion. s/p Pericardial window POD #4. Patient developed AMS with acute delirium on 2nd day post op transferred to ICU for sedation Patient clinically improved and back to her base line ( alert, ox3) As per Dr. Terrell and resident Dr. Gomez .N . Patient cleared by Dr. Cueva and Dr. Santillan and surgery for discharge home and out patient f/u D/W Dr. Claire aldana , stable for discharge home today and f/u with Dr. Claire aldana office on Sunday at 330 pm Discharge plan discussed with patient , including f/u , who understands an d agrees with plan Patient instructed to returns to ED if symptoms returns or any other concerning symptoms
[2017-08-16 15:31] VITALS: BP 128/86; PULSE 73; RESP 24
--- NOTE | 2017-08-26 09:23 | OP ---
PROCEDURE DATE: 08/10/2017 PREOPERATIVE DIAGNOSIS: Pericardial effusion. POSTOPERATIVE DIAGNOSIS: Pericardial effusion. PROCEDURE DONE: Subxiphoid pericardial window. SURGEON: Dakota Bowers MD [employer]: Edwin Gooden TYPE OF ANESTHESIA: Endotracheal general anesthesia. INDICATION FOR SURGERY: The patient is a 36-year-old female who presented to the Emergency Room with shortness of breath associated with symptoms and coughs consistent with viral respiratory infection. Workup showed large pericardial effusion, although there was no evidence of tamponade. Operation was indicated to relieve symptoms and diagnosis. DESCRIPTION OF PROCEDURE: The patient was taken to the operating room where the patient was placed in supine position and operative field was prepared and draped in a sterile fashion. Next, just before operation was ready to be started, the patient was slowly induced and endotracheal general anesthesia was carried out. Surgery was started out through 7 cm long midline subxiphoid incision and was deepened through the linea alba and preperitoneal space. At this time, xiphoid process was amputated at the level of xiphisternal junction and exposure of anterior mediastinum was gained using multiple combination of retractors. Next, the anterior pericardial surface was cleared from pericardial fat as well as right and left pleural reflection. Using 21-gauge needle attached to 10 cm syringe, pericardium was impaled to confirm the pericardial space. Next, with 15-blade, pericardium was incised, and approximately 7 cm x 7 cm pericardium was removed using either hot cautery or Metzenbaum scissors. Approximately 700 mL of serous effusion was evacuated and was sent out for appropriate microbiological and chemical studies. Pericardial tissue was also sent out for microbiological as well as histological studies. After completely evacuating pericardial space, two 28-Bruneian chest tubes were inserted through stab wounds, either right or left side of incision, advanced into the right and left side of pericardial space in a crisscross fashion.s Exit point of the chest tube were sutured to the skin edges with 0 silk sutures. Skin opening was next closed in layers, fascia with continuous #1 PDS, subcutaneous fascia with continuous 3-0 Vicryl and then skin with skin william. Sterile dressing was applied and taped in the usual manner. The patient tolerated the procedure very well and was transferred to the recovery room, extubated, awake, with good vital signs. Estimated blood loss was less than 10 mL. Sponge, needle, and instrument counts were correct. Dakota Bowers MD [id number]
== END 2017-08-16 14:50 | disposition home or self-care (01) | DRG 549 ==
LOC: C.ER 18:58 → C.9E 08-08 01:29 → C.6T 08-08 10:58 → C.9S 08-10 13:54 → C.9I 08-10 21:02 → C.5S 08-13 08:04 → C.9I 08-14 15:58
PROVIDERS: ADMIT Internal Medicine Nephrology; ATTEND Internal Medicine Nephrology
PROC: 02BN0ZX Excision of Pericardium, Open Approach, Diagnostic (ICD-10-PCS; principal; 2017-08-08)
PROC: 0W9D00Z Drainage of Pericardial Cavity with Drainage Device, Open Approach (ICD-10-PCS; 2017-08-08)
PROC: 0PB00ZZ Excision of Sternum, Open Approach (ICD-10-PCS; 2017-08-08)
DX: I30.9 Acute pericarditis, unspecified (principal); G92 Toxic encephalopathy; I31.4 Cardiac tamponade; J90 Pleural effusion, not elsewhere classified; F23 Brief psychotic disorder; D64.9 Anemia, unspecified; F10.10 Alcohol abuse, uncomplicated; F12.90 Cannabis use, unspecified, uncomplicated; F17.210 Nicotine dependence, cigarettes, uncomplicated; J40 Bronchitis, not specified as acute or chronic; R45.6 Violent behavior

== ENCOUNTER 2017-09-21 16:28 | Emergency (ER) | payer MEDICAID ==
[2017-09-21 16:28] VITALS: BMI 25.2
--- NOTE | 2017-09-21 17:13 | C.PDOC ---
History Of Present Illness 37 year old female, with history of pericardial effusion s/p window, presents to ED for evaluation of chest pain associated with productive cough and white sputum since last night. Denies fever, or other complaints. Time Seen by Provider: 09/21/17 16:53 Chief Complaint (Nursing): Chest Pain History Per: Patient History/Exam Limitations: no limitations Onset/Duration Of Symptoms: Days Current Symptoms Are (Timing): Still Present Quality: "Pain" Associated Symptoms: denies: Nausea, Dyspnea, Diaphoresis, Syncope Modifying Factors: None Exacerbating Factors: None Alleviating Factors: None Recent travel outside of the [place]: No Additional History Per: Patient Past Medical History Reviewed: Historical Data, Nursing Documentation, Vital Signs Vital Signs: Last Vital Signs Temp 98.8 F 09/21/17 20:02 Pulse 110 H 09/21/17 20:02 Resp 18 09/21/17 20:02 BP 127/88 09/21/17 20:02 Pulse Ox 97 09/21/17 20:02 - Medical History PMH: Denies: Chronic Kidney Disease - [facility] Procedures DRAINAGE OF PERICARDIAL CAVITY WITH DRAIN DEV, OPEN APPROACH (08/08/17) EXCISION OF PERICARDIUM, OPEN APPROACH, DIAGNOSTIC (08/08/17) EXCISION OF STERNUM, OPEN APPROACH (08/08/17) Family History: States: Unknown Family Hx - Social History Hx Alcohol Use: No Hx Substance Use: Yes (1 bag of marijuana /day) - Immunization History Hx Tetanus Toxoid Vaccination: No Hx Influenza Vaccination: No Hx Pneumococcal Vaccination: No Review Of Systems Except As Marked, All Systems Reviewed And Found Negative. Constitutional: Negative for: Fever, Chills Cardiovascular: Positive for: Chest Pain. Negative for: Palpitations, Edema, Light Headedness Respiratory: Positive for: Cough, Sputum. Negative for: Shortness of Breath, Hemoptysis Gastrointestinal: Negative for: Nausea, Vomiting Neurological: Negative for: Headache, Dizziness Physical Exam - Physical Exam Appears: Non-toxic, No Acute Distress Skin: Normal Color, Warm, Dry Head: Atraumatic, Normacephalic Eye(s): bilateral: Normal Inspection Oral Mucosa: Moist Neck: Normal ROM, Supple Chest: Symmetrical, No Deformity, No Tenderness Cardiovascular: Rhythm Regular, No Murmur Respiratory: Normal Breath Sounds, No Rales, No Rhonchi, No Wheezing Gastrointestinal/Abdominal: Soft, No Tenderness Extremity: Normal ROM, No Pedal Edema, No Deformity Neurological/Psych: Oriented x3, Normal Speech ED Course And Treatment - Laboratory Results Result Diagrams: 09/21/17 17:19 09/21/17 17:19 O2 Sat by Pulse Oximetry: 95 (RA) Pulse Ox Interpretation: Normal - CT Scan/US Dissection Study Other Rad Studies (CT/US): Read By Radiologist, Radiology Report Reviewed CT/US Interpretation: EXAM: CT Chest Without and With Intravenous Contrast. CLINICAL HISTORY: 37 years old, female; Pain; Other: Chest; Chest pain; Type not specified; Prior surgery; Surgery date: 1-6 months; Surgery type: Pericardial window; Additional info: Cp radiating to back. TECHNIQUE: Axial computed tomography images of the chest without and with intravenous contrast. All CT scans. at this facility use one or more dose reduction techniques, viz. : automated exposure control; ma/kV. adjustment per patient size (including targeted exams where dose is matched to indication; i.e. head);. or iterative reconstruction technique. Coronal and sagittal reformatted images were created and reviewed. CONTRAST: 100 mL of visipaque 320 administered intravenously. COMPARISON: No relevant prior studies available. FINDINGS: Lungs and pleural spaces: Trachea and main bronchi are patent. There is been interval decrease in. size of the bilateral pleural effusions. There is a small residual right effusion. There is a slightly larger. residual left effusion. There is minimal compressive atelectasis at the right base. There is slightly. greater air space disease at the left base. There is minimal subsegmental atelectasis in the left upper. lobe. Right upper lobe and right middle lobes are well inflated. Mediastinum: There are no pathologically enlarged mediastinal or hilar nodes. Esophagus is. unremarkable. Thyroid: Thyroid is only partially imaged. Bones/joints: There are no acute osseous abnormalities. Soft tissues: There is minimal residual postoperative change in the lower chest wall. Subcutaneous. emphysema has resolved. Heart and Vasculature: Heart size is normal. There is a small residual pericardial effusion. Pneumopericardium has resolved.Pulmonary vessels are unremarkable. Aorta is normal in caliber. There is no aneurysm or dissection. There is perfusion of the 3 arch vessels area. Upper abdomen: Refer to following report for abdominal findings. IMPRESSION: No aortic aneurysm or dissection; small residual pericardial effusion with interval resolution of. pneumopericardium; residual pleural effusions left greater than right with airspace disease/atelectasis. greatest at the left base. Additional nonemergent findings as described above. . EXAM: CT Abdomen and Pelvis Without and With Intravenous Contrast. EXAM DATE/TIME: 09/21/2017 6:02 PM. CLINICAL HISTORY: 37 years old, female; Pain; Other: Chest; Chest pain; Type not specified; Prior surgery; Surgery date: 1-6 months; Surgery type: Pericardial window; Additional info: Cp radiating to back. TECHNIQUE: Axial computed tomography images of the abdomen and pelvis without and with intravenous. contrast. All CT scans at this facility use one or more dose reduction techniques, viz.: automated. exposure control; ma/kV adjustment per patient size (including targeted exams where dose is. matched to indication; i.e. head); or iterative reconstruction technique. Coronal and sagittal reformatted images were created and reviewed. CONTRAST: 100 mL of visipaque 320 administered intravenously. COMPARISON: CT - CHEST W/O CONTRAST 2017-08-14 10:58. FINDINGS: Lower thorax : Refer to prior report for chest findings. ABDOMEN: Liver: Liver is mildly enlarged. The fatty liver. Gallbladder and bile ducts: Gallbladder is distended. Common duct is prominent. Pancreas: unremarkable. Spleen: unremarkable. Adrenals: unremarkable. Kidneys and ureters: unremarkable. Stomach and bowel: Stomach is incompletely distended. Rotation is normal. Small bowel is mildly. distended with fluid and air. There is fluid throughout the small bowel. Ileocecal region is. unremarkable.Colon is incompletely distended which limits evaluation. There is scattered. diverticulosis. Appendix: See stomach and bowel. PELVIS: Bladder: unremarkable. Reproductive: Uterus and adnexal structures are unremarkable. ABDOMEN and PELVIS: Intraperitoneal space : There is no significant fluid.There is no free air. Bones/joints: There are no acute osseous abnormalities. Soft tissues: There is a small fat containing umbilical hernia. There is a small umbilical hernia. Vasculature: Aorta is normal in caliber. There are occasional atherosclerotic calcifications in the. distal aorta and iliacs. There is perfusion of all major abdominal aortic branches. There is perfusion of. the iliac vessels. Lymph nodes: There is shotty adenopathy. IMPRESSION: No aortic aneurysm or dissection; mild enlarged fatty liver, no acute solid visceral. abnormality; mild ileus, no obstruction Against Medical Advice - AMA Patient Left Against Medical Advice: The patient declines admission to the hospital and wishes to leave the Emergency Department. This action is against my medical advice. This decision was made with informed refusal. The patient was told that admission to the hospital is necessary. Explanation of the reasons why were discussed. The risks of leaving were explained to the patient and include, but are not limited to, worsening of known or currently unknown conditions, permanent disability and from undiagnosed or untreated conditions. The patient has the capacity to make this informed decision and understands my explanation of the current medical problem and risks of leaving. The patient voluntarily accepts these risks and signed an AMA form documenting our conversation. The patient was given the opportunity to ask questions and reconsider. The patient was encouraged to return to the Emergency Department at any time for further care. Medical Decision Making Medical Decision Making: Plan: Blood work Influenza AB EKG CXR Echocardiogram done at bedside shows minimal perdicardial effusion EKG: Sinus tachycardia at 102bpm. Non-specific ST wave changes. pt with ekg changes, request admission. pt declines, needs to "take care of children". signs ama, understands risks, and return precautiosn Disposition - Disposition Referrals: [facility] [Outside] [facility] [Outside] Lucas Cueva MD [Staff Provider] - Disposition: AGAINST MEDICAL ADVICE Disposition Time: 08:00 Condition: UNKNOWN Additional Instructions: follow up with specialist. return to er with worsening symptoms or concerns. Instructions: Chest Pain (ED), Against Medical Advice (ED) Forms: [facility] (Swazi) - Clinical Impression Clinical Impression: Chest pain - Scribe Statement The provider has reviewed the documentation as recorded by the Scribe Norman Lemus All medical record entries made by the Scribe were at my direction and personally dictated by me. I have reviewed the chart and agree that the record accurately reflects my personal performance of the history, physical exam, medical decision making, and the department course for this patient. I have also personally directed, reviewed, and agree with the discharge instructions and disposition.
[2017-09-21 17:24] LABS: BASO % 0.7 % (0.0-2.0); EOS % 0.7 % (0.0-4.0); HEMOGLOBIN 11.3 g/dL (11.0-16.0); LYMPH # 1.5 K/uL (1.0-4.3); LYMPH % 24.1 % (20.0-40.0); MEAN CELL VOLUME 83.4 fL (81.0-99.0); MEAN CORPUSCULAR HEMOGLOBIN 26.9 pg (27.0-31.0); MEAN CORPUSCULAR HGB CONC 32.2 g/dL (33.0-37.0); MEAN PLATELET VOLUME 7.3 fL (7.2-11.7); MONO # 0.5 K/uL (0.0-0.8); NEUT % 66.5 % (50.0-75.0); NRBC % 0.1 % (0.0-2.0); RBC 4.18 Mil/uL (3.80-5.20); RED CELL DISTRIBUTION WIDTH 22.7 % (11.5-14.5); WHITE BLOOD COUNT 6.1 K/uL (4.8-10.8)
[2017-09-21 17:36] LABS: PROTHROMBIN TIME 11.7 SECONDS (9.7-12.2)
[2017-09-21 17:44] LABS: GFR AFRICAN-AMERICAN > 60; GFR NON-AFRICAN AMERICAN > 60
[2017-09-21 17:45] LABS: ALB/GLOB RATIO 0.9 (1.0-2.1); ALBUMIN 3.9 g/dL (3.5-5.0); ALT/SGPT 27 U/L (9-52); AST/SGOT 126 U/L (14-36); BLOOD UREA NITROGEN 2 mg/dL (7-17)
[2017-09-21 17:55] LABS: B-TYPE NATRIURETIC PEPTIDE 271 pg/mL (0-450)
[2017-09-21] MEDS ORDERED: Iodixanol 320 MG/ML 100 ML BOTTLE IV ONE (18:14)
--- NOTE | 2017-09-21 18:30 | RAD ---
PROCEDURE: CHEST RADIOGRAPH, 1 VIEW HISTORY: chest pain COMPARISON: 08/16/2017 FINDINGS: LUNGS: Resolved infiltrates. PLEURA: Resolved bilateral pleural effusions. CARDIOVASCULAR: Normal. OSSEOUS STRUCTURES: No significant abnormalities. VISUALIZED UPPER ABDOMEN: Normal. OTHER FINDINGS: None. IMPRESSION: No active disease.
--- NOTE | 2017-09-21 19:43 | CT ---
EXAM: CT Chest Without and With Intravenous Contrast CLINICAL HISTORY: 37 years old, female; Pain; Other: Chest; Chest pain; Type not specified; Prior surgery; Surgery date: 1-6 months; Surgery type: Pericardial window; Additional info: Cp radiating to back TECHNIQUE: Axial computed tomography images of the chest without and with intravenous contrast. All CT scans at this facility use one or more dose reduction techniques, viz.: automated exposure control; ma/kV adjustment per patient size (including targeted exams where dose is matched to indication; i.e. head); or iterative reconstruction technique. Coronal and sagittal reformatted images were created and reviewed. CONTRAST: 100 mL of visipaque 320 administered intravenously. COMPARISON: No relevant prior studies available. FINDINGS: Lungs and pleural spaces: Trachea and main bronchi are patent. There is been interval decrease in size of the bilateral pleural effusions. There is a small residual right effusion. There is a slightly larger residual left effusion. There is minimal compressive atelectasis at the right base. There is slightly greater air space disease at the left base. There is minimal subsegmental atelectasis in the left upper lobe. Right upper lobe and right middle lobes are well inflated. Mediastinum: There are no pathologically enlarged mediastinal or hilar nodes. Esophagus is unremarkable. Thyroid: Thyroid is only partially imaged. Bones/joints: There are no acute osseous abnormalities. Soft tissues: There is minimal residual postoperative change in the lower chest wall. Subcutaneous emphysema has resolved. Heart and Vasculature: Heart size is normal. There is a small residual pericardial effusion. Pneumopericardium has resolved.Pulmonary vessels are unremarkable. Aorta is normal in caliber. There is no aneurysm or dissection. There is perfusion of the 3 arch vessels area Upper abdomen: Refer to following report for abdominal findings IMPRESSION: No aortic aneurysm or dissection; small residual pericardial effusion with interval resolution of pneumopericardium; residual pleural effusions left greater than right with airspace disease/atelectasis greatest at the left base Additional nonemergent findings as described above. EXAM: CT Abdomen and Pelvis Without and With Intravenous Contrast EXAM DATE/TIME: 09/21/2017 6:02 PM CLINICAL HISTORY: 37 years old, female; Pain; Other: Chest; Chest pain; Type not specified; Prior surgery; Surgery date: 1-6 months; Surgery type: Pericardial window; Additional info: Cp radiating to back TECHNIQUE: Axial computed tomography images of the abdomen and pelvis without and with intravenous contrast. All CT scans at this facility use one or more dose reduction techniques, viz.: automated exposure control; ma/kV adjustment per patient size (including targeted exams where dose is matched to indication; i.e. head); or iterative reconstruction technique. Coronal and sagittal reformatted images were created and reviewed. CONTRAST: 100 mL of visipaque 320 administered intravenously. COMPARISON: CT - CHEST W/O CONTRAST 2017-08-14 10:58 FINDINGS: Lower thorax: Refer to prior report for chest findings ABDOMEN: Liver: Liver is mildly enlarged. The fatty liver Gallbladder and bile ducts: Gallbladder is distended. Common duct is prominent. Pancreas: unremarkable Spleen: unremarkable Adrenals: unremarkable Kidneys and ureters: unremarkable Stomach and bowel: Stomach is incompletely distended. Rotation is normal. Small bowel is mildly distended with fluid and air. There is fluid throughout the small bowel. Ileocecal region is unremarkable.Colon is incompletely distended which limits evaluation. There is scattered diverticulosis Appendix: See stomach and bowel PELVIS: Bladder: unremarkable Reproductive: Uterus and adnexal structures are unremarkable. ABDOMEN and PELVIS: Intraperitoneal space: There is no significant fluid.There is no free air. Bones/joints: There are no acute osseous abnormalities. Soft tissues: There is a small fat containing umbilical hernia. There is a small umbilical hernia Vasculature: Aorta is normal in caliber. There are occasional atherosclerotic calcifications in the distal aorta and iliacs. There is perfusion of all major abdominal aortic branches. There is perfusion of the iliac vessels. Lymph nodes: There is shotty adenopathy. IMPRESSION: No aortic aneurysm or dissection; mild enlarged fatty liver, no acute solid visceral abnormality; mild ileus, no obstruction
[2017-09-21 20:05] VITALS: BP 127/88; PULSE 110; RESP 18; TEMP 98.8
[2017-09-23 13:17] VITALS: O2SAT 95
--- NOTE | 2017-09-24 09:06 | CARD ---
APPROVED REPORT EKG Measurement Heart [id number] RI [id number] <Conclusion> Sinus tachycardia Nonspecific T wave abnormality Abnormal ECG
== END 2017-09-21 20:05 | disposition left against medical advice (07) ==
LOC: C.ER 16:28
DX: R07.9 Chest pain, unspecified (principal)
CPT/HCPCS: 71045; 71275; 74175; 80053; 83880; 84484; 85025; 85610; 85730; 87804; 93005; 99285; Q9967

== ENCOUNTER 2018-01-06 17:37 | Emergency (ER) | payer MEDICAID ==
[2018-01-06 17:37] VITALS: BMI 25.2
[2018-01-06 18:07] VITALS: TEMP 98.3
[2018-01-06 19:32] LABS: BASO % 0.5 % (0.0-2.0); EOS # 0.1 K/uL (0.0-0.7); EOS % 0.8 % (0.0-4.0); HEMOGLOBIN 10.4 g/dL (11.0-16.0); LYMPH # 2.1 K/uL (1.0-4.3); LYMPH % 24.4 % (20.0-40.0); MEAN CELL VOLUME 82.8 fL (81.0-99.0); MEAN CORPUSCULAR HEMOGLOBIN 26.6 pg (27.0-31.0); MEAN CORPUSCULAR HGB CONC 32.2 g/dL (33.0-37.0); MEAN PLATELET VOLUME 7.8 fL (7.2-11.7); MONO % 12.1 % (0.0-10.0); NEUT # 5.2 K/uL (1.8-7.0); NEUT % 62.2 % (50.0-75.0); NRBC % 0.8 % (0.0-2.0); RBC 3.92 Mil/uL (3.80-5.20); RED CELL DISTRIBUTION WIDTH 23.4 % (11.5-14.5); WHITE BLOOD COUNT 8.4 K/uL (4.8-10.8)
--- NOTE | 2018-01-06 19:33 | C.PDOC ---
History Of Present Illness 37yo female, with complaints of intermittent dizziness, a productive cough with white sputum and occasional shortness of breath for the past 10 days. She is able to speak in full sentences and denies any fever, chills, nausea and vomiting. Time Seen by Provider: 01/06/18 19:32 Chief Complaint (Nursing): Dizziness/Lightheaded History Per: Patient History/Exam Limitations: no limitations Onset/Duration Of Symptoms: Days Current Symptoms Are (Timing): Still Present Pain Scale Rating Of: 4 Past Medical History Reviewed: Historical Data, Nursing Documentation, Vital Signs Vital Signs: Last Vital Signs Temp 98.3 F 01/06/18 18:00 Pulse 108 H 01/06/18 19:21 Resp 22 01/06/18 19:21 BP 115/85 01/06/18 19:21 Pulse Ox 98 01/06/18 20:16 - Medical History PMH: CHF (possible CHF) Denies: Chronic Kidney Disease Surgical History: No Surg Hx - [facility] Procedures DRAINAGE OF PERICARDIAL CAVITY WITH DRAIN DEV, OPEN APPROACH (08/08/17) EXCISION OF PERICARDIUM, OPEN APPROACH, DIAGNOSTIC (08/08/17) EXCISION OF STERNUM, OPEN APPROACH (08/08/17) Family History: States: Unknown Family Hx - Social History Hx Alcohol Use: Yes Hx Substance Use: No - Immunization History Hx Tetanus Toxoid Vaccination: No Hx Influenza Vaccination: No Hx Pneumococcal Vaccination: No Review Of Systems Constitutional: Negative for: Fever, Chills Respiratory: Positive for: Cough, Shortness of Breath, Sputum (white) Gastrointestinal: Negative for: Nausea, Vomiting Neurological: Positive for: Dizziness Physical Exam - Physical Exam Appears: No Acute Distress Skin: Warm, Dry Head: Atraumatic Eye(s): bilateral: PERRL Neck: Supple Chest: Symmetrical Cardiovascular: Rhythm Regular Respiratory: No Rales, Rhonchi (scattered at bases), No Wheezing Gastrointestinal/Abdominal: Soft, No Tenderness Extremity: No Tenderness, No Pedal Edema Neurological/Psych: Oriented x3 ED Course And Treatment - Laboratory Results Result Diagrams: 01/06/18 19:29 01/06/18 19:29 ECG: Interpreted By Me, Viewed By Me ECG Rhythm: Sinus Tachycardia (114), Nonspecific Changes O2 Sat by Pulse Oximetry: 98 Pulse Ox Interpretation: Normal - Radiology CXR: Interpreted by Me, Viewed By Me CXR Interpretation: No: Infiltrates, Fracture, Pnemothorax Progress Note: Labs and CXR ordered. Patient given Toradol and K-dur. Reevaluation Time: 21:34 Reassessment Condition: Improved Medical Decision Making Medical Decision Making: Upon provider reevaluation patient is feeling better, is medically stable, and requires no further treatment in the ED at this time. Patient will be discharged home . Counseling was provided and all questions were answered regarding diagnosis and need for follow up with dr ha. There is agreement to discharge plan. Return if symptoms persist or worsen. Disposition Counseled Patient/Family Regarding: Studies Performed, Diagnosis, Need For Followup, Rx Given - Disposition Referrals: Brady Reyez MD [Medical Doctor] - Disposition: HOME/ ROUTINE Disposition Time: 19:33 Condition: FAIR Additional Instructions: Please return if symptoms recur Instructions: Generalized Neck Pain (DC) Forms: [facility] ([place]) - Clinical Impression Clinical Impression: Dizziness, Hypokalemia - Scribe Statement The provider has reviewed the documentation as recorded by the Scribe (Yelitza Mendes) Provider Attestation: All medical record entries made by the Scribe were at my direction and personally dictated by me. I have reviewed the chart and agree that the record accurately reflects my personal performance of the history, physical exam, medical decision making, and the department course for this patient. I have also personally directed, reviewed, and agree with the discharge instructions and disposition.
[2018-01-06 19:44] LABS: CALCIUM 8.9 mg/dl (8.6-10.4); GFR AFRICAN-AMERICAN > 60; GFR NON-AFRICAN AMERICAN > 60
[2018-01-06 19:46] LABS: ALBUMIN 4.1 g/dL (3.5-5.0); ALT/SGPT 38 U/L (9-52); AST/SGOT 96 U/L (14-36); BLOOD UREA NITROGEN 4 mg/dL (7-17)
[2018-01-06] MEDS ORDERED: Potassium Chloride 10 mEq ER Tab PO STA (19:49)
[2018-01-06] MEDS ORDERED: Potassium Chloride 20 mEq ER Tab PO ONE (19:58)
[2018-01-06 20:07] LABS: HCG,QUALITATIVE URINE NEGATIVE (NEGATIVE)
[2018-01-06 20:08] LABS: SQUAMOUS EPITHIAL 2 /hpf (0-5); URINE BACTERIA RARE (<OCC); URINE BILIRUBIN NEGATIVE (NEGATIVE); URINE BLOOD NEGATIVE (NEGATIVE); URINE CLARITY Clear (Clear); URINE COLOR Yellow (YELLOW); URINE GLUCOSE (UA) NORMAL (Normal); URINE LEUKOCYTE ESTERASE NEG Leu/uL (Negative); URINE PROTEIN NEGATIVE (NEGATIVE)
[2018-01-06 20:12] LABS: INR 1.1; PROTHROMBIN TIME 12.8 SECONDS (9.7-12.2)
[2018-01-06 20:46] LABS: TROPONIN I 0.026 ng/mL (0.00-0.120)
[2018-01-06 22:00] VITALS: BP 100/64; PULSE 115; RESP 116; O2SAT 96
--- NOTE | 2018-01-07 08:29 | RAD ---
Chest x-ray single frontal view History: Chest pain. Comparison: None available. Findings: Mild venous congestion. Bibasilar breast and nipple shadows. Heart size within normal limits. Impression: Mild venous congestion.
--- NOTE | 2018-01-09 08:33 | CARD ---
APPROVED REPORT EKG Measurement Heart [id number] <Conclusion> Sinus tachycardia Possible Left atrial enlargement Nonspecific T wave abnormality Abnormal ECG
== END 2018-01-06 22:00 | disposition home or self-care (01) ==
LOC: C.ER 17:37
DX: R42 Dizziness and giddiness (principal); E87.6 Hypokalemia
CPT/HCPCS: 71045; 80053; 81001; 83880; 84484; 84703; 85025; 85610; 85730; 93005; 96374; 99285; J1885